=== PATIENT | female | born 1960 | race Caucasian/White ===

== ENCOUNTER → 2019-02-05 | Outpatient (CLI) | payer BC ==
--- NOTE | 2019-02-05 12:30 | US ---
EXAMINATION TYPE: US pelvic complete DATE OF EXAM: 02/05/2019 COMPARISON: NONE CLINICAL HISTORY: R10.2 Pelvic and perineal pain. pelvic pain x 4 months, partial hysterectomy 2002, TECHNIQUE: TA. Transabdominal sonographic images of the pelvis were acquired. Date of LMP: 2002 EXAM MEASUREMENTS: Uterus: surgically absent Endometrial Stripe: Surgically absent Right Ovary: 1.7 x 1.6 x 1.7 cm Left Ovary: 1.4 x 1.1 x 1.2 cm 1. Uterus: Surgically absent 2. Endometrium: Surgically absent 3. Right Ovary: wnl 4. Left Ovary: wnl 5. Bilateral Adnexa: wnl 6. Posterior cul-de-sac: wnl IMPRESSION: 1. Normal pelvic ultrasound
== END | disposition home or self-care (01) ==
LOC: RADUSWWP 11:33
PROVIDERS: ATTEND Family Medicine
DX: R10.2 Pelvic and perineal pain (principal); Z88.6 Allergy status to analgesic agent
CPT/HCPCS: 76856

== ENCOUNTER → 2019-02-26 | Outpatient (CLI) | payer BC ==
--- NOTE | 2019-02-26 09:45 | XR ---
EXAMINATION TYPE: XR pelvis AP view DATE OF EXAM: 02/26/2019 COMPARISON: NONE HISTORY: Pain The osseous structures are intact and the joint spaces are preserved. No acute fracture is seen. Vi sualized bowel gas pattern is nonspecific. Arthropathy of the hips. Calcification pelvis likely vasc ular. Sclerotic density overlying the left femoral neck likely related to bone island. IMPRESSION: 1. No acute fracture.
== END ==
LOC: RADXRMAIN 09:05
PROVIDERS: ATTEND Physical Medicine & Rehabilitation
DX: M48.062 Spinal stenosis, lumbar region with neurogenic claudication (principal); M47.26 Other spondylosis with radiculopathy, lumbar region; M41.26 Other idiopathic scoliosis, lumbar region; M43.16 Spondylolisthesis, lumbar region; R20.2 Paresthesia of skin
CPT/HCPCS: 72170

== ENCOUNTER 2019-07-31 15:08 | Inpatient (IN) | payer BC ==
[2019-07-31] MEDS ORDERED: methylPREDNISolone SOD SUCCI 125 MG/2 ML VIAL IV STA (16:06)
[2019-07-31] MEDS ORDERED: IPRATROPIUM-ALBUTEROL 3 ML NEB INHALATION STA (16:06)
[2019-07-31 16:30] LABS: Basophils # (A) 0.1 k/uL (0-0.2); Basophils % (A) 2 %; Eosinophils # (A) 0.1 k/uL (0-0.7); Eosinophils % (A) 2 %; HCT 42.5 % (34.0-46.0); HGB 13.8 gm/dL (11.4-16.0); Lymphocytes # (A) 1.2 k/uL (1.0-4.8); Lymphocytes % (A) 17 %; MCH 29.9 pg (25.0-35.0); MCHC 32.4 g/dL (31.0-37.0); MCV 92.3 fL (80.0-100.0); Mean Platelet Volume 7.3; Monocytes # (A) 0.7 k/uL (0-1.0); Monocytes % (A) 10 %; Neutrophils % (A) 68 %; Platelet Count 211 k/uL (150-450); RDW 12.9 % (11.5-15.5); WBC 7.3 k/uL (3.8-10.6)
--- NOTE | 2019-07-31 16:31 | ED ---
SOB HPI - General Chief Complaint: Shortness of Breath Stated Complaint: COPD Time Seen by Provider: 07/31/19 15:48 Source: patient, RN notes reviewed Mode of arrival: ambulatory Limitations: no limitations - History of Present Illness Initial Comments: This a 59-year-old female presents emergency Department from Dr. Hannah's office chief complaints of dyspnea. Patient states that she states that she has no official diagnosis of underlying lung she's though she has chronic issues. Patient states that she was exposed to help. When she was younger. She has a chronic bronchospasm, wheezing. Patient uses an inhaler. She's had no relief. She does admit that she's had progressively worsening dyspnea over the last 3-4 weeks. Patient states that she presented to her PCPs office today and found to be in mild respiratory distress. Patient was given breathing treatment, steroids, antibiotics at that time. Patient PCP states that she was retracting. 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 - Related Data Home Medications Medication Instructions Recorded Confirmed ALPRAZolam [Xanax] 0.5 mg PO DAILY 07/31/19 07/31/19 Albuterol Inhaler [Ventolin Hfa 2 puff INHALATION RT-Q6H PRN 07/31/19 07/31/19 Inhaler] Cyanocobalamin [Vitamin B-12] 500 mcg PO DAILY 07/31/19 07/31/19 Esomeprazole Magnesium [NexIUM] 40 mg PO DAILY 07/31/19 07/31/19 Hydrocodone/Acetaminophen [[place] 1 tab PO BID PRN 07/31/19 07/31/19 10-325] Lisinopril [Zestril] 20 mg PO DAILY 07/31/19 07/31/19 Meloxicam [Mobic] 15 mg PO DAILY 07/31/19 07/31/19 RX: Vitamin E 100 unit PO DAILY 07/31/19 07/31/19 Allergies Allergy/AdvReac Type Severity Reaction Status Date / Time latex Allergy Rash/Hives Verified 07/31/19 16:10 Review of Systems ROS Statement: Those systems with pertinent positive or pertinent negative responses have been documented in the HPI. ROS Other: All systems not noted in ROS Statement are negative. Past Medical History Past Medical History: COPD, Osteoarthritis (OA) Additional Past Medical History / Comment(s): Back Pain History of Any Multi-Drug Resistant Organisms: None Reported Past Surgical History: Hysterectomy Past Psychological History: Anxiety Smoking Status: Never smoker Past Alcohol Use History: None Reported Past Drug Use History: None Reported General Exam Limitations: no limitations General appearance: alert, in no apparent distress Head exam: Present: atraumatic, normocephalic, normal inspection Eye exam: Present: normal appearance, PERRL, EOMI. Absent: scleral icterus, conjunctival injection, periorbital swelling ENT exam: Present: normal oropharynx, mucous membranes moist, TM's normal bilaterally, normal external ear exam Neck exam: Present: normal inspection, full ROM. Absent: tenderness, meningismus, lymphadenopathy Respiratory exam: Present: respiratory distress (Mild), wheezes, accessory muscle use, other (Hypoxic 94). Absent: normal lung sounds bilaterally, rales, rhonchi, stridor Cardiovascular Exam: Present: regular rate, normal rhythm, normal heart sounds. Absent: systolic murmur, diastolic murmur, rubs, gallop, clicks GI/Abdominal exam: Present: soft, normal bowel sounds. Absent: distended, tenderness, guarding, rebound, rigid Course Vital Signs 07/31/19 07/31/19 07/31/19 15:13 16:10 16:21 Temperature 98.1 F Pulse Rate 91 79 80 Respiratory 16 Rate Blood Pressure 142/87 O2 Sat by Pulse 94 L Oximetry 07/31/19 16:44 Temperature Pulse Rate 89 Respiratory 20 Rate Blood Pressure 121/60 O2 Sat by Pulse 98 Oximetry Medical Decision Making - Medical Decision Making Labs chest x-ray and EKG were obtained. Chest x-ray shows evidence of diaphragmatic hernia including bowel and stomach within the chest cavity. Patient does have noted dyspnea. Patient will be admitted to Dr. Hannah with consult to cardiothoracic. - Lab Data Result diagrams: 07/31/19 15:55 07/31/19 15:55 Lab Results 07/31/19 07/31/19 07/31/19 Range/Units 15:55 15:55 15:55 WBC 7.3 (3.8-10.6) k/uL RBC 4.60 (3.80-5.40) m/uL Hgb 13.8 (11.4-16.0) gm/dL Hct 42.5 (34.0-46.0) % MCV 92.3 (80.0-100.0) fL MCH 29.9 (25.0-35.0) pg MCHC 32.4 (31.0-37.0) g/dL RDW 12.9 (11.5-15.5) % Plt Count 211 (150-450) k/uL Neutrophils % 68 % Lymphocytes % 17 % Monocytes % 10 % Eosinophils % 2 % Basophils % 2 % Neutrophils # 5.0 (1.3-7.7) k/uL Lymphocytes # 1.2 (1.0-4.8) k/uL Monocytes # 0.7 (0-1.0) k/uL Eosinophils # 0.1 (0-0.7) k/uL Basophils # 0.1 (0-0.2) k/uL PT (9.0-12.0) sec INR (<1.2) APTT (22.0-30.0) sec Sodium 142 (137-145) mmol/L Potassium 3.8 (3.5-5.1) mmol/L Chloride 105 (98-107) mmol/L Carbon Dioxide 30 (22-30) mmol/L Anion Gap 7 mmol/L BUN 14 (7-17) mg/dL Creatinine 0.50 L (0.52-1.04) mg/dL Est GFR (CKD-EPI)AfAm >90 (>60 ml/min/1.73 sqM) Est GFR (CKD-EPI)NonAf >90 (>60 ml/min/1.73 sqM) Glucose 120 H (74-99) mg/dL Plasma Lactic Acid Jayson (0.7-2.0) mmol/L Calcium 9.5 (8.4-10.2) mg/dL Magnesium 2.0 (1.6-2.3) mg/dL Total Bilirubin 0.4 (0.2-1.3) mg/dL AST 18 (14-36) U/L ALT 19 (9-52) U/L Alkaline Phosphatase 83 (38-126) U/L Troponin I (0.000-0.034) ng/mL NT-Pro-B Natriuret Pep 32 pg/mL Total Protein 6.8 (6.3-8.2) g/dL Albumin 4.0 (3.5-5.0) g/dL 07/31/19 07/31/19 07/31/19 Range/Units 15:55 15:55 15:55 WBC (3.8-10.6) k/uL RBC (3.80-5.40) m/uL Hgb (11.4-16.0) gm/dL Hct (34.0-46.0) % MCV (80.0-100.0) fL MCH (25.0-35.0) pg MCHC (31.0-37.0) g/dL RDW (11.5-15.5) % Plt Count (150-450) k/uL Neutrophils % % Lymphocytes % % Monocytes % % Eosinophils % % Basophils % % Neutrophils # (1.3-7.7) k/uL Lymphocytes # (1.0-4.8) k/uL Monocytes # (0-1.0) k/uL Eosinophils # (0-0.7) k/uL Basophils # (0-0.2) k/uL PT 10.0 (9.0-12.0) sec INR 0.9 (<1.2) APTT 22.6 (22.0-30.0) sec Sodium (137-145) mmol/L Potassium (3.5-5.1) mmol/L Chloride (98-107) mmol/L Carbon Dioxide (22-30) mmol/L Anion Gap mmol/L BUN (7-17) mg/dL Creatinine (0.52-1.04) mg/dL Est GFR (CKD-EPI)AfAm (>60 ml/min/1.73 sqM) Est GFR (CKD-EPI)NonAf (>60 ml/min/1.73 sqM) Glucose (74-99) mg/dL Plasma Lactic Acid Jayson 0.8 (0.7-2.0) mmol/L Calcium (8.4-10.2) mg/dL Magnesium (1.6-2.3) mg/dL Total Bilirubin (0.2-1.3) mg/dL AST (14-36) U/L ALT (9-52) U/L Alkaline Phosphatase (38-126) U/L Troponin I <0.012 (0.000-0.034) ng/mL NT-Pro-B Natriuret Pep pg/mL Total Protein (6.3-8.2) g/dL Albumin (3.5-5.0) g/dL Disposition Clinical Impression: Dyspnea, Large hiatal hernia Disposition: ADMITTED IP TO THIS HOSP Condition: Fair Referrals: Rober Hannah MD [Primary Care Provider] - 1-2 days
[2019-07-31 16:44] LABS: ALT 19 U/L (9-52); AST 18 U/L (14-36); African American GFR (CKD) >90 (>60 ml/min/1.73 sqM); Alkaline Phosphatase 83 U/L (38-126); Anion Gap 7 mmol/L; Blood Urea Nitrogen 14 mg/dL (7-17); Calcium 9.5 mg/dL (8.4-10.2); Carbon Dioxide 30 mmol/L (22-30); Chloride 105 mmol/L (98-107); Glucose 120 mg/dL (74-99); Potassium 3.8 mmol/L (3.5-5.1); Sodium 142 mmol/L (137-145); Total Bilirubin 0.4 mg/dL (0.2-1.3); Total Protein 6.8 g/dL (6.3-8.2)
[2019-07-31 16:51] LABS: INR 0.9 (<1.2); Partial Thromboplastin Time 22.6 sec (22.0-30.0)
--- NOTE | 2019-07-31 17:12 | XR ---
EXAMINATION: XR chest 2V DATE AND TIME: 07/31/2019 4:39 PM CLINICAL INDICATION: PHH; difficulty breathing TECHNIQUE: Departmental protocol COMPARISON: No comparison available. FINDINGS: There are marked architectural distortion changes throughout the mid and lower lung zones a nd over the mediastinum. The appearance suggest intrathoracic stomach and intrathoracic bowel. These findings can be further specified if prior comparison imaging studies become available, or if CT imag ing is obtained. The upper and visualized mid lung parenchyma is clear bilaterally. There is no pneumothorax. Is evidence suggesting small pleural effusions. The cardiac silhouette appears mildly enlarged. The skeletal structures and visualized soft tissues are negative for acute findings. IMPRESSION: Prominent architectural distortion changes limit accuracy of this chest radiographic exam ination. Geographic findings as above.
[2019-07-31] MEDS ORDERED: HYDROmorphone 0.5 MG/0.5 ML SYRINGE IVP PRN (17:30)
[2019-07-31] MEDS ORDERED: NALOXONE 0.4 MG/ML 1 ML VIAL IV PRN (17:30)
[2019-07-31] MEDS ORDERED: ONDANSETRON 4 MG/2 ML VIAL IVP PRN (17:30)
[2019-07-31] MEDS ORDERED: HYDROmorphone 1 MG/ML 1 ML SYRINGE IVP PRN (17:30)
[2019-07-31] MEDS ORDERED: HYDROcodone/APAP 10-325MG 1 EACH TAB PO PRN (20:33)
[2019-07-31] MEDS: ALPRAZolam 0.5 MG TAB PO SCH (21:16)
[2019-08-01] MEDS: ALBUTEROL NEBULIZED 2.5 MG/3 ML INHALATION PRN ×2 (07:22→20:11)
[2019-08-01] MEDS: PANTOPRAZOLE 40 MG/10 ML VIAL IV SCH (08:14)
[2019-08-01] MEDS: CYANOCOBALAMIN 500 MCG TAB PO SCH (08:14)
--- NOTE | 2019-08-01 08:14 | P.HPIM ---
History of Present Illness H&P Date: 08/01/19 Chief Complaint: CAMPOS for several days. 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 She states she had to miss work this past weekend because she could not perform her housekeeping duties properly. Evaluation in my office did show possible lump element of emphysema. She had PFT which did show poor FEV1 at about 30% predicted. Due to this finding on x-ray, she is now been admitted for possible repair of a diaphragmatic hernia do to causing significant dyspnea. Otherwise, she has an element of hypertension and chronic pain related to DJD of the spine and knees bilaterally. Review of Systems Constitutional: Denies chills, Denies fever Eyes: denies blurred vision, denies pain Ears, nose, mouth and throat: Denies headache, Denies sore throat Cardiovascular: Reports orthopnea Respiratory: Reports dyspnea Gastrointestinal: Denies abdominal pain, Denies diarrhea, Denies nausea, Denies vomiting Genitourinary: Denies dysuria, Denies hematuria Musculoskeletal: Denies myalgias Past Medical History Past Medical History: COPD, Osteoarthritis (OA) Additional Past Medical History / Comment(s): Back Pain History of Any Multi-Drug Resistant Organisms: None Reported Past Surgical History: Hysterectomy Past Anesthesia/Blood Transfusion Reactions: No Reported Reaction Past Psychological History: Anxiety Smoking Status: Never smoker Past Alcohol Use History: None Reported Past Drug Use History: None Reported Medications and Allergies Home Medications Medication Instructions Recorded Confirmed Type ALPRAZolam [Xanax] 0.5 mg PO DAILY 07/31/19 07/31/19 History Albuterol Inhaler [Ventolin Hfa 2 puff INHALATION RT-Q6H PRN 07/31/19 07/31/19 History Inhaler] Cyanocobalamin [Vitamin B-12] 500 mcg PO DAILY 07/31/19 07/31/19 History Esomeprazole Magnesium [NexIUM] 40 mg PO DAILY 07/31/19 07/31/19 History Hydrocodone/Acetaminophen [[place] 1 tab PO BID PRN 07/31/19 07/31/19 History 10-325] Lisinopril [Zestril] 20 mg PO DAILY 07/31/19 07/31/19 History Meloxicam [Mobic] 15 mg PO DAILY 07/31/19 07/31/19 History Vitamin E 100 unit PO DAILY 07/31/19 07/31/19 History Allergies Allergy/AdvReac Type Severity Reaction Status Date / Time latex Allergy Rash/Hives Verified 07/31/19 16:10 Physical Exam Vitals: Vital Signs Temp Pulse Pulse Resp BP BP Pulse Ox 08/01/19 07:52 64 08/01/19 07:22 60 07/31/19 19:52 98.1 F 76 20 124/82 07/31/19 18:54 97.8 F 87 18 125/74 96 07/31/19 16:44 89 20 121/60 98 07/31/19 16:21 80 07/31/19 16:10 79 07/31/19 15:13 98.1 F 91 16 142/87 94 L Intake and Output 07/31/19 08/01/19 08/01/19 22:59 06:59 14:59 Intake Total 200 Balance 200 Intake: Oral 200 Other: Voiding Method Toilet # Voids 0 Weight 74.389 kg - Constitutional General appearance: no acute distress - EENT Eyes: EOMI - Neck Neck: no lymphadenopathy - Respiratory Respiratory: bilateral: diminished - Cardiovascular Rhythm: regular Heart sounds: normal: S1, S2 Abnormal Heart Sounds: no S3 Gallop - Gastrointestinal General gastrointestinal: soft, no tenderness - Neurologic Neurologic: CNII-XII intact, focal deficits Results CBC & Chem 7: 07/31/19 15:55 07/31/19 15:55 Labs: Abnormal Lab Results - Last 24 Hours (Table) 07/31/19 Range/Units 15:55 Creatinine 0.50 L (0.52-1.04) mg/dL Glucose 120 H (74-99) mg/dL Thrombosis Risk Factor Assmnt - Choose All That Apply Each Factor Represents 1 point: Age 41-60 years Thrombosis Risk Factor Assessment Total Risk Factor Score: 1 Thrombosis Risk Factor Assessment Level: Low Risk Assessment and Plan (1) Opiate dependence Current Visit: Yes Status: Acute Code(s): F11.20 - OPIOID DEPENDENCE, UNCOM PLICATED SNOMED Code(s): 88965625 (2) Degenerative joint disease (DJD) of lumbar spine Current Visit: Yes Status: Acute Code(s): M47.816 - SPONDYLOSIS W/O MYELOPATHY OR RADICULOPATHY, LUMBAR REGION SNOMED Code(s): 669532842 (3) Dyspnea Current Visit: Yes Status: Acute Code(s): R06.00 - DYSPNEA, UNSPECIFIED SNOMED Code(s): 968442437 (4) Large hiatal hernia Current Visit: Yes Status: Acute Code(s): K44.9 - DIAPHRAGMATIC HERNIA WITHOUT OBSTRUCTION OR GANGRENE SNOMED Code(s): 31136700 Plan: Continue breathing treatments for now. Otherwise, await consultation for possible repair of the head hernia. Check CBC and CMP in a.m. Reconcile medications. She is a full code after discussion. See orders otherwise. Time with Patient: Greater than 30
[2019-08-01] MEDS: LISINOPRIL 20 MG TAB PO SCH (08:15)
[2019-08-01] MEDS: VITAMIN E (DL,TOCOPHERYL ACET) 400 UNIT CAP PO SCH (08:15)
[2019-08-01] MEDS: ALPRAZolam 0.5 MG TAB PO SCH (08:15)
[2019-08-01] MEDS: MELOXICAM 7.5 MG TAB PO SCH (08:15)
[2019-08-01 08:17] LABS: Basophils # (A) 0.1 k/uL (0-0.2); Basophils % (A) 2 %; Eosinophils # (A) 0.1 k/uL (0-0.7); Eosinophils % (A) 2 %; HCT 44.3 % (34.0-46.0); HGB 14.5 gm/dL (11.4-16.0); Lymphocytes # (A) 1.1 k/uL (1.0-4.8); Lymphocytes % (A) 17 %; MCHC 32.6 g/dL (31.0-37.0); MCV 94.9 fL (80.0-100.0); Mean Platelet Volume 7.2; Monocytes # (A) 0.5 k/uL (0-1.0); Monocytes % (A) 9 %; Neutrophils % (A) 67 %; Platelet Count 166 k/uL (150-450); RBC 4.67 m/uL (3.80-5.40); RDW 12.9 % (11.5-15.5)
[2019-08-01 08:26] LABS: Prothrombin Time 10.4 sec (9.0-12.0)
[2019-08-01 08:31] LABS: ALT 22 U/L (9-52); AST 18 U/L (14-36); African American GFR (CKD) >90 (>60 ml/min/1.73 sqM); Albumin 3.9 g/dL (3.5-5.0); Alkaline Phosphatase 73 U/L (38-126); Anion Gap 8 mmol/L; Blood Urea Nitrogen 15 mg/dL (7-17); Calcium 9.2 mg/dL (8.4-10.2); Carbon Dioxide 31 mmol/L (22-30); Chloride 104 mmol/L (98-107); Glucose 138 mg/dL (74-99); Potassium 3.8 mmol/L (3.5-5.1); Sodium 143 mmol/L (137-145); Total Bilirubin 0.7 mg/dL (0.2-1.3); Total Protein 6.7 g/dL (6.3-8.2)
[2019-08-01] MEDS ORDERED: NON FORMULARY DRUG (Esomeprazole Magnesium [Nexium] 40 MG) PO SCH (09:00)
--- NOTE | 2019-08-01 11:57 | CT ---
EXAMINATION TYPE: CT chest abdomen w con DATE OF EXAM: 08/01/2019 COMPARISON: Chest x-ray 07/31/2019 HISTORY: Evaluate paraesophageal hernia. Epigastric pain. CT DLP: 845.4 mGycm. Automated Exposure Control for Dose Reduction was Utilized. CONTRAST: CT scan of the thorax, abdomen and pelvis is performed with IV Contrast, patient injected with 100 mL of Isovue M300. FINDINGS: There is a large hiatal hernia. The stomach is present within the right chest crossing midl ine into the left chest. Multiple small bowel loops, portions of the colon present within the chest a s well as the mesentery, pancreas. Portal vein is apparently inverted, probable mixing artifact prese nt of the confluence of the splenic vein and superior mesenteric vein. No evident bowel obstruction. Celiac axis and superior mesenteric artery show branches coursing in a cephalad direction. LUNGS: The lungs are grossly clear, there is no concerning parenchymal mass or nodule identified. T here is no pleural effusion or pneumothorax seen. The tracheobronchial tree is patent. MEDIASTINUM: There are no greater than 1 cm hilar or mediastinal lymph nodes. No pericardial effusi on is seen. There are coronary artery calcifications present. OTHER: No additional significant abnormality is seen. LIVER/GB: There is a sizable calcified gallstone within the gallbladder. Liver shows some mild the pr ominent biliary ducts, there is no evident mass. PANCREAS: As above SPLEEN: No significant abnormality is seen. ADRENALS: Prominent focus of low-attenuation associated with the right adrenal gland may represent an adenoma measuring 2 cm. Left adrenal gland is thought likely to be normal. KIDNEYS: No significant abnormality is seen. BOWEL: As above GENITAL ORGANS: No gross abnormality seen. LYMPH NODES: No greater than 1cm abdominal or pelvic lymph nodes are appreciated. OSSEOUS STRUCTURES: Degenerative disc changes in the visualized spine. Anterolisthesis grade 1 L4-5. OTHER: No significant additional abnormality is seen. IMPRESSION: Large paraesophageal hernia as described. Probable adrenal adenoma. Cholelithiasis.
--- NOTE | 2019-08-01 15:42 | P.GSCN ---
History of Present Illness Consult date: 08/01/19 Reason for Consult: Paraesophogeal hernia Requesting physician: Jamal Heredia History of present illness: The patient is a 59-year-old female who follows with Dr. Hnanah. She has a pmh significant for arthritis, HTN, and GERD. She went to her PCP approximately one week ago with "cold-like" symptoms. She states she had a productive cough with green sputum, diarrhea, and shortness of breath x 1 week. Her dyspnea on exertion has gotten progressively worse over the last several days. Her PCP did a PFT which showed a poor FEV1 at about 30% predicted, and subsequently sent her to the . CXR in demonstrated a large paraesophogeal hernia with the majority of her abdominal contents in her chest. She was admitted for evaluation and treatment. Consultation was placed to Dr. Marcum for surgical recommendations. Review of Systems ROS completed and negative except as noted - Constitutional Constitutional Comment(s): Denies any fever or chills Reports as per HPI, Reports fatigue - EENT EENT Comment(s): Denies any blurred vision or changes in vision. Denies any headache, sore throat, or earaches. Eyes: denies blurred vision - Breasts Breasts Comment(s): deferred - Cardiovascular Cardiovascular Comment(s): Denies any chest pain/pressure, palpitations, or peripheral edema - Respiratory Respiratory Comment(s): Reports sob x 1 week, orthopnea, wheezing, and a productive cough with yellow/green sputum. Denies any hemoptysis. - Gastrointestinal Gastrointestinal Comment(s): She had an upper GI approximately 5 years ago and was told she has a hiatal hernia and has had ongoing epigastric pain since. Reports acid reflux. Denies nausea, vomiting, or constipation. - Genitourinary Genitourinary Comment(s): Denies hematuria., dysuria, or flank pain Menstruation: Reports post hysterectomy - Musculoskeletal Musculoskeleta Comment(s): Denies weakness or myalgias - Integumentary Integumentary Comment(s): Denies any rashes, ulcers, or open wounds. - Neurological Neurologic Comment(s): Denies any dizziness, confusion, weakness, or headaches - Psychiatric Reports anxiety - Endocrine Endocrine Comment(s): denies any recent changes in weight or heat/cold intolerance Past Medical History Past Medical History: COPD, GERD/Reflux, Osteoarthritis (OA) Additional Past Medical History / Comment(s): Back Pain History of Any Multi-Drug Resistant Organisms: None Reported Past Surgical History: Hysterectomy Past Anesthesia/Blood Transfusion Reactions: No Reported Reaction Past Psychological History: Anxiety Smoking Status: Never smoker Past Alcohol Use History: None Reported Past Drug Use History: None Reported - Past Family History Father Additional Family Medical History / Comment(s): Alzheimers Mother Family Medical History: Congestive Heart Failure (CHF) Brother(s) Family Medical History: Cancer Sister(s) Family Medical History: Cancer Medications and Allergies Home Medications Medication Instructions Recorded Confirmed Type ALPRAZolam [Xanax] 0.5 mg PO DAILY 07/31/19 07/31/19 History Albuterol Inhaler [Ventolin Hfa 2 puff INHALATION RT-Q6H PRN 07/31/19 07/31/19 History Inhaler] Cyanocobalamin [Vitamin B-12] 500 mcg PO DAILY 07/31/19 07/31/19 History Esomeprazole Magnesium [NexIUM] 40 mg PO DAILY 07/31/19 07/31/19 History Hydrocodone/Acetaminophen [[place] 1 tab PO BID PRN 07/31/19 07/31/19 History 10-325] Lisinopril [Zestril] 20 mg PO DAILY 07/31/19 07/31/19 History Meloxicam [Mobic] 15 mg PO DAILY 07/31/19 07/31/19 History Vitamin E 100 unit PO DAILY 07/31/19 07/31/19 History Allergies Allergy/AdvReac Type Severity Reaction Status Date / Time latex Allergy Rash/Hives Verified 07/31/19 16:10 Surgical - Exam Vital Signs Temp Pulse Resp BP Pulse Ox 98.1 F 91 16 142/87 94 L 07/31/19 15:13 07/31/19 15:13 07/31/19 15:13 07/31/19 15:13 07/31/19 15:13 - General well developed, well nourished, no distress - Eyes normal ocular movement - ENT no hearing loss - Neck trachea midline, no lymphadectomy - Respiratory Patient lying in bed on 2L NC SPO2 96%. Lungs diminished to bases with mild expiratory wheezes. Mild conversational dyspnea noted. - Cardiovascular Regular rate and rhythm. No S3, murmurs, or friction rub noted. - Abdomen Bowel sounds heard in chest cavity Abdomen: soft, non tender, bowel sounds - Genitourinary deferred - Rectum deferred - Integumentary no rash - Neurologic CNII-XII grossly intact, no focal deficits noted - Psychiatric oriented to time, oriented to person, oriented to place, speech is normal, memory intact Results - Labs 08/01/19 07:50 08/01/19 07:50 Abnormal Lab Results - Last 24 Hours (Table) 07/31/19 08/01/19 Range/Units 15:55 07:50 Carbon Dioxide 31 H (22-30) mmol/L Creatinine 0.50 L (0.52-1.04) mg/dL Glucose 120 H 138 H (74-99) mg/dL Diabetes panel 07/31/19 08/01/19 Range/Units 15:55 07:50 Sodium 142 143 (137-145) mmol/L Potassium 3.8 3.8 (3.5-5.1) mmol/L Chloride 105 104 (98-107) mmol/L Carbon Dioxide 30 31 H (22-30) mmol/L BUN 14 15 (7-17) mg/dL Creatinine 0.50 L 0.55 (0.52-1.04) mg/dL Glucose 120 H 138 H (74-99) mg/dL Calcium 9.5 9.2 (8.4-10.2) mg/dL AST 18 18 (14-36) U/L ALT 19 22 (9-52) U/L Alkaline Phosphatase 83 73 (38-126) U/L Total Protein 6.8 6.7 (6.3-8.2) g/dL Albumin 4.0 3.9 (3.5-5.0) g/dL Calcium panel 07/31/19 08/01/19 Range/Units 15:55 07:50 Calcium 9.5 9.2 (8.4-10.2) mg/dL Albumin 4.0 3.9 (3.5-5.0) g/dL Pituitary panel 07/31/19 08/01/19 Range/Units 15:55 07:50 Sodium 142 143 (137-145) mmol/L Potassium 3.8 3.8 (3.5-5.1) mmol/L Chloride 105 104 (98-107) mmol/L Carbon Dioxide 30 31 H (22-30) mmol/L BUN 14 15 (7-17) mg/dL Creatinine 0.50 L 0.55 (0.52-1.04) mg/dL Glucose 120 H 138 H (74-99) mg/dL Calcium 9.5 9.2 (8.4-10.2) mg/dL Adrenal panel 07/31/19 08/01/19 Range/Units 15:55 07:50 Sodium 142 143 (137-145) mmol/L Potassium 3.8 3.8 (3.5-5.1) mmol/L Chloride 105 104 (98-107) mmol/L Carbon Dioxide 30 31 H (22-30) mmol/L BUN 14 15 (7-17) mg/dL Creatinine 0.50 L 0.55 (0.52-1.04) mg/dL Glucose 120 H 138 H (74-99) mg/dL Calcium 9.5 9.2 (8.4-10.2) mg/dL Total Bilirubin 0.4 0.7 (0.2-1.3) mg/dL AST 18 18 (14-36) U/L ALT 19 22 (9-52) U/L Alkaline Phosphatase 83 73 (38-126) U/L Total Protein 6.8 6.7 (6.3-8.2) g/dL Albumin 4.0 3.9 (3.5-5.0) g/dL - Imaging Chest x-ray: report reviewed, image reviewed CT scan - abdomen: report reviewed, image reviewed EKG: report reviewed, image reviewed Assessment and Plan Assessment: 1. Paraesophogeal hernia 2. CT evidence of gallstone 3. HTN 4. GERD 5. Arthritis 6. Dyspnea Plan: The patient was seen and examined at the bedside. CT of chest was obtained whi ch confirms large paraesophageal hernia with abdominal contents inside the chest and a large gall stone. We discussed surgical repair with the patient and her . All risks and benefits were reviewed and the patient consented to surgery. Our plan is for paraesophogeal hernia repair with laparotomy approach on Tuesday08/04/[address] Keller will simultaneously be performing a cholecystectomy. We will obtain PFT's with a pulmonology consult for evaluation. Incentive spirometry was ordered and should be encouraged. Medical management of other co-morbid conditions per primary care service. More recommendations to follow. Thank you for this consultation. We look forward in working with you and caring for this patient.
[2019-08-01] MEDS: ALPRAZolam 0.5 MG TAB PO PRN (23:10)
[2019-08-02] MEDS: ALBUTEROL NEBULIZED 2.5 MG/3 ML INHALATION PRN ×3 (08:10→15:39)
[2019-08-02] MEDS: LISINOPRIL 20 MG TAB PO SCH (08:16)
[2019-08-02] MEDS: VITAMIN E (DL,TOCOPHERYL ACET) 400 UNIT CAP PO SCH (08:16)
[2019-08-02] MEDS: CYANOCOBALAMIN 500 MCG TAB PO SCH (08:16)
[2019-08-02] MEDS: MELOXICAM 7.5 MG TAB PO SCH (08:16)
[2019-08-02] MEDS: PANTOPRAZOLE 40 MG/10 ML VIAL IV SCH (08:16)
--- NOTE | 2019-08-02 08:30 | P.PN ---
Subjective Progress Note Date: 08/02/19 Principal diagnosis: Hiatal hernia This is a continue progress note on a 59-year-old white female essentially admitted for large diaphragmatic type hernia. Large amounts of intestinal contents and lower abdominal contents are in her chest cavity. I had a long discussion with thoracic surgery yesterday and they will anticipate repair in the next day or 2. No significant fever or chills. Hours has significant dyspnea on exertion. DVT prophylaxis will be instituted given her lack of mobility. Objective - Vital Signs Vital signs: Vital Signs Temp 98.5 F 08/02/19 04:35 Pulse 68 08/02/19 08:23 Resp 16 08/02/19 04:35 BP 133/74 08/02/19 04:35 Pulse Ox 97 08/02/19 04:35 Intake & Output 08/01/19 08/02/19 08/02/19 18:59 06:59 18:59 Intake Total 790 Balance 790 Weight 74.389 kg Intake: Oral 790 Other: Voiding Method Toilet # Voids 4 4 - Constitutional General appearance: Present: average body habitus - EENT Eyes: Absent: abnormal pupil - Respiratory Respiratory: bilateral: CTA - Cardiovascular Rhythm: regular Heart sounds: normal: S1, S2 Abnormal Heart Sounds: Absent: S3 Gallop - Gastrointestinal General gastrointestinal: Present: soft. Absent: tenderness - Psychiatric Psychiatric: Present: A&O x's 3, appropriate affect - Labs CBC & Chem 7: 08/01/19 07:50 08/01/19 07:50 Labs: Abnormal Lab Results - Last 24 Hours (Table) 08/01/19 Range/Units 07:50 Carbon Dioxide 31 H (22-30) mmol/L Glucose 138 H (74-99) mg/dL Microbiology - Last 24 Hours (Table) 07/31/19 15:55 Blood Culture - Preliminary Blood No Growth after 24 hours Assessment and Plan (1) Opiate dependence Current Visit: Yes Status: Acute Code(s): F11.20 - OPIOID DEPENDENCE, UNCOMPLICATED SNOMED Code(s): 48334411 (2) Degenerative joint disease (DJD) of lumbar spine Current Visit: Yes Status: Acute Code(s): M47.816 - SPONDYLOSIS W/O MYELOPATHY OR RADICULOPATHY, LUMBAR REGION SNOMED Code(s): 468129281 (3) Dyspnea Current Visit: Yes Status: Acute Code(s): R06.00 - DYSPNEA, UNSPECIFIED SNOMED Code(s): 609053444 (4) Large hiatal hernia Current Visit: Yes Status: Acute Code(s): K44.9 - DIAPHRAGMATIC HERNIA WITHOUT OBSTRUCTION OR GANGRENE SNOMED Code(s): 50582201 Plan: Continue observation prior to surgical repair. Again, DVT prophylaxis GI prophylaxis as necessary. Appreciate thoracic input.
[2019-08-02] MEDS: HEPARIN SODIUM,PORCINE 5,000 UNIT/ML 1 ML VIAL SQ SCH ×2 (08:57→21:27)
--- NOTE | 2019-08-02 11:40 | P.PN ---
Subjective Progress Note Date: 08/02/19 Principal diagnosis: This is a 59-year-old female patient who is followed by Dr. Hannah on an outpatient basis. She has a past medical history significant for hypertension, arthritis and gastroesophageal reflux disease. She presented to the [facility] emergency department after visiting with her primary care physician for cold-like symptoms with complaints of a productive cough, green colored sputum, diarrhea and shortness of breath for one week period. The patient did have a pulmonary function test completed in Dr. Hannah's office which demonstrated a poor FEV1 with a predicted value of 30%. Due to her above mentioned complaints and her results of her FEV1 she was requested to go to the emergency department here at [facility]. While in the emergency department a chest x-ray was completed which demonstrated her to have a large per esophageal hernia with the majority of her abdominal contents in her chest. For further evaluation and a CT of her chest was completed which confirmed a large paraesophageal hernia with abdominal contents inside the chest and a large gallstone. She was subsequently admitted for further evaluation and treatment recommendations and was also seen by Dr. Josué Marcum from cardiothoracic surgery for evaluation and treatment recommendations. This morning the patient was evaluated at her bedside on the fourth floor medical surgical unit. She is in no acute distress and denies any complaints of pain or shortness of breath while at rest. She is tolerating a clear liquid diet, although reports that even a cup coffee makes her feel like she has eaten 2 full meals. Oxygen saturations are 97% on 2 L nasal cannula and she is achieving 1000 mL on her incentive spirometry. Preoperative teaching reinforced with the patient. Objective - Vital Signs Vital signs: Vital Signs Temp 98.5 F 08/02/19 04:35 Pulse 68 08/02/19 08:23 Resp 16 08/02/19 04:35 BP 133/74 08/02/19 04:35 Pulse Ox 97 08/02/19 04:35 Intake & Output 08/01/19 08/02/19 08/02/19 18:59 06:59 18:59 Intake Total 790 Balance 790 Weight 74.389 kg Intake: Oral 790 Other: Voiding Method Toilet # Voids 4 4 - Labs CBC & Chem 7: 08/01/19 07:50 08/01/19 07:50 Labs: Microbiology - Last 24 Hours (Table) 07/31/19 15:55 Blood Culture - Preliminary Blood No Growth after 24 hours Assessment and Plan Assessment: 1. Paraesophogeal hernia 2. Cholelithiasis 3. Hypertension 4. Gastroesophageal reflux disease 5. Arthritis 6. Dyspnea Plan: 1. Patient is scheduled for a paraesophageal hernia repair with laparotomy approach to be performed by Dr. Josué Marcum on 08/04/2019. Dr. Keller will simultaneously perform a cholecystectomy. 2. Continue GI and DVT prophylaxis. 3. Medical management and other comorbidities per primary care service. 4. Continue to encourage use of her incentive spirometry every hour while awake. 5. Continue preoperative teaching. 6. More recommendations to follow based on patient's clinical course. Time with Patient: Greater than 30
--- NOTE | 2019-08-02 15:00 | P.GSCN ---
History of Present Illness Consult date: 08/02/19 Reason for Consult: gallstone Requesting physician: Denise Simon History of present illness: CHIEF COMPLAINT: Gallstone HISTORY OF PRESENT ILLNESS: 59-year-old female who was admitted to the hospital due to a large paraesophageal hernia with the majority of her abdomen contents in her chest. Patient was also found to have cholelithiasis on computed tomography scan. General surgery was consulted further evaluation. Patient examined at the bedside with Dr. Hickey. Patient currently denies abdominal pain. Denies nausea or vomiting. PAST MEDICAL HISTORY: See list. PAST SURGICAL HISTORY: See list. SOCIAL HISTORY: No illicit drug use. REVIEW OF SYSTEMS: CONSTITUTIONAL: Denies fever or chills. HEENT: Denies blurred vision, vision changes, or eye pain. Denies hemoptysis CARDIOVASCULAR: Denies chest pain or pressure. RESPIRATORY: No shortness of breath. GASTROINTESTINAL: Refer to HPI for pertinent findings HEMATOLOGIC: Denies bleeding disorders. GENITOURINARY: Denies any blood in urine. SKIN: Denies pruitis. Denies rash. PHYSICAL EXAM: VITAL SIGNS: Reviewed. GENERAL: Well-developed in no acute distress. HEENT: No sclera icterus. Extraocular movements grossly intact. Moist buccal mucosa. Head is atraumatic, normocephalic. ABDOMEN: Soft. Nondistended. Nontender. NEUROLOGIC: Alert and oriented. Cranial nerves II through XII grossly intact. LABORATORY DATA: WBC 6.0. Hemoglobin 14.5. Platelet count 166. IMAGING: CT abdomen pelvis: Large hiatal hernia. Stomach is present within the right chest crusting midline into the left chest. Multiple small bowel loops, portions of the colon present within the chest as well as the mesentery, pancreas. There is a sizable calcified gallstone within the gallbladder. ASSESSMENT: 1. Large paraesophageal hernia 2. Cholelithiasis PLAN: Patient is scheduled for repair of esophageal hernia with Dr. Marcum on August 04. Patient will also simultaneously undergo open cholecystectomy on Tuesday with Dr. Keller. Nurse practitioner note has been reviewed by physician. Signing provider agrees with the documented findings, assessment, and plan of care. Past Medical History Past Medical History: COPD, GERD/Reflux, Osteoarthritis (OA) Additional Past Medical History / Comment(s): Back Pain History of Any Multi-Drug Resistant Organisms: None Reported Past Surgical History: Hysterectomy Past Anesthesia/Blood Transfusion Reactions: No Reported Reaction Past Psychological History: Anxiety Smoking Status: Never smoker Past Alcohol Use History: None Reported Past Drug Use History: None Reported - Past Family History Father Additional Family Medical History / Comment(s): Alzheimers Mother Family Medical History: Congestive Heart Failure (CHF) Brother(s) Family Medical History: Cancer Sister(s) Family Medical History: Cancer Medications and Allergies Home Medications Medication Instructions Recorded Confirmed Type ALPRAZolam [Xanax] 0.5 mg PO DAILY 07/31/19 07/31/19 History Albuterol Inhaler [Ventolin Hfa 2 puff INHALATION RT-Q6H PRN 07/31/19 07/31/19 History Inhaler] Cyanocobalamin [Vitamin B-12] 500 mcg PO DAILY 07/31/19 07/31/19 History Esomeprazole Magnesium [NexIUM] 40 mg PO DAILY 07/31/19 07/31/19 History Hydrocodone/Acetaminophen [[place] 1 tab PO BID PRN 07/31/19 07/31/19 History 10-325] Lisinopril [Zestril] 20 mg PO DAILY 07/31/19 07/31/19 History Meloxicam [Mobic] 15 mg PO DAILY 07/31/19 07/31/19 History Vitamin E 100 unit PO DAILY 07/31/19 07/31/19 History Allergies Allergy/AdvReac Type Severity Reaction Status Date / Time latex Allergy Rash/Hives Verified 07/31/19 16:10 Surgical - Exam Vital Signs Temp Pulse Resp BP Pulse Ox 98.1 F 91 16 142/87 94 L 07/31/19 15:13 07/31/19 15:13 07/31/19 15:13 07/31/19 15:13 07/31/19 15:13 Results - Labs 08/01/19 07:50 08/01/19 07:50 Microbiology - Last 24 Hours (Table) 07/31/19 15:55 Blood Culture - Preliminary Blood No Growth after 24 hours
--- NOTE | 2019-08-02 15:35 | P.CNPUL ---
History of Present Illness Consult date: 08/02/19 Requesting physician: Josué Marcum Reason for consult: dyspnea Chief complaint: Shortness of breath, large paraesophageal hernia, need pulmonary clearance History of present illness: This is a 59-year-old white female patient of Dr. Hannah who presented to her PCPs office for evaluation of cold-like symptoms, and increasing exertional dyspnea over a period of last several days. Patient is a nonsmoker, and she does not have any chronic lung disease, apparently a outpatient PFT and her PCPs office showed an FEV1 of about 31% of predicted, and patient was sent in to the emergency department for evaluation, chest x-ray in emergency department demonstrated a large Dobbs esophageal hernia with intrathoracic stomach and intrathoracic bowel, causing compression of the lungs. CT of the chest, and abdomen with contrast was obtained showing a large hiatal hernia, and the stomach and multiple small bowel loops and portions of the colon were present within the chest as well as the mesentery in the pancreas. There was no evidence of bowel obstruction, the lungs were grossly clear, without any concerning parenchymal mass or nodule. No greater than 1 cm hilar mediastinal lymph node. No cardial effusion, no pleural effusion or pneumothorax. There was a sizable calcified gallstone within the gallbladder, and this was a porcelain gallbladder. Patient was referred to cardiothoracic surgery for surgical repair, and patient is scheduled to undergo paraesophageal hernia repair with laparotomy on 08/04/[address] Marcum. Patient will simultaneously performed a cholecystectomy. We are consulted for pulmonary clearance as well as pulmonary and critical care monitoring in the preop and postoperative period Review of Systems All systems: negative Constitutional: Denies chills, Denies fever Eyes: denies blurred vision, denies pain Ears, nose, mouth and throat: Denies headache, Denies sore throat Cardiovascular: Denies chest pain, Denies shortness of breath Respiratory: Reports dyspnea, Denies cough Gastrointestinal: Reports early satiety, Denies abdominal pain, Denies diarrhea, Denies nausea, Denies vomiting Genitourinary: Denies dysuria, Denies hematuria Musculoskeletal: Denies myalgias Integumentary: Denies pruritus, Denies rash Neurological: Denies numbness, Denies weakness Psychiatric: Denies anxiety, Denies depression Endocrine: Denies fatigue, Denies weight change Past Medical History Past Medical History: COPD, GERD/Reflux, Osteoarthritis (OA) Additional Past Medical History / Comment(s): Back Pain History of Any Multi-Drug Resistant Organisms: None Reported Past Surgical History: Hysterectomy Past Anesthesia/Blood Transfusion Reactions: No Reported Reaction Past Psychological History: Anxiety Smoking Status: Never smoker Past Alcohol Use History: None Reported Past Drug Use History: None Reported - Past Family History Father Additional Family Medical History / Comment(s): Alzheimers Mother Family Medical History: Congestive Heart Failure (CHF) Brother(s) Family Medical History: Cancer Sister(s) Family Medical History: Cancer Medications and Allergies Home Medications Medication Instructions Recorded Confirmed Type ALPRAZolam [Xanax] 0.5 mg PO DAILY 07/31/19 07/31/19 History Albuterol Inhaler [Ventolin Hfa 2 puff INHALATION RT-Q6H PRN 07/31/19 07/31/19 History Inhaler] Cyanocobalamin [Vitamin B-12] 500 mcg PO DAILY 07/31/19 07/31/19 History Esomeprazole Magnesium [NexIUM] 40 mg PO DAILY 07/31/19 07/31/19 History Hydrocodone/Acetaminophen [[place] 1 tab PO BID PRN 07/31/19 07/31/19 History 10-325] Lisinopril [Zestril] 20 mg PO DAILY 07/31/19 07/31/19 History Meloxicam [Mobic] 15 mg PO DAILY 07/31/19 07/31/19 History Vitamin E 100 unit PO DAILY 07/31/19 07/31/19 History Allergies Allergy/AdvReac Type Severity Reaction Status Date / Time latex Allergy Rash/Hives Verified 07/31/19 16:10 Physical Exam Vitals: Vital Signs Temp Pulse Pulse Resp BP Pulse Ox 08/02/19 15:00 98.3 F 80 16 150/68 94 L 08/02/19 11:49 72 08/02/19 11:39 69 08/02/19 08:23 68 08/02/19 08:11 66 08/02/19 04:35 98.5 F 71 16 133/74 97 08/01/19 20:25 77 08/01/19 20:13 75 96 08/01/19 19:20 20 08/01/19 19:12 97.1 F L 73 20 137/72 94 L Intake and Output 08/02/19 08/02/19 08/02/19 06:59 14:59 22:59 Intake Total 720 Balance 720 Intake: Oral 720 Other: Voiding Method Toilet # Voids 4 2 GENERAL EXAM: Alert, very pleasant, 59-year-old white female, comfortable in no apparent distress. HEAD: Normocephalic/atraumatic. EYES: Normal reaction of pupils, equal size. Conjunctiva pink, sclera white. NOSE: Clear with pink turbinates. THROAT: No erythema or exudates. NECK: No masses, no JVD, no thyroid enlargement, no adenopathy. CHEST: No chest wall deformity. Symmetrical expansion. LUNGS: Diminished air entry with no crackles, wheeze, rhonchi or dullness. Patient has a mild conversational dyspnea CVS: Regular rate and rhythm, normal S1 and S2, no gallops, no murmurs, no rubs ABDOMEN: Soft, nontender. No hepatosplenomegaly, normal bowel sounds, no guarding or rigidity. EXTREMITIES: No clubbing, no edema, no cyanosis, 2+ pulses and upper and lower extremities. MUSCULOSKELETAL: Muscle strength and tone normal. SPINE: No scoliosis or deformity SKIN: No rashes CENTRAL NERVOUS SYSTEM: Alert and oriented -3. No focal deficits, tone is normal in all 4 extremities. PSYCHIATRIC: Alert and oriented -3. Appropriate affect. Intact judgment and insight. Results - Laboratory Findings CBC and BMP: 08/01/19 07:50 08/01/19 07:50 PT/INR, D-dimer PT 10.4 sec (9.0-12.0) 08/01/19 07:50 INR 1.0 (<1.2) 08/01/19 07:50 Abnormal lab findings: Abnormal Labs 07/31/19 08/01/19 15:55 07:50 Carbon Dioxide 31 H Creatinine 0.50 L Glucose 120 H 138 H - Diagnostic Findings Chest x-ray: report reviewed, image reviewed CT scan - chest: report reviewed, image reviewed Assessment and Plan Plan: Assessment: #1. Shortness of breath related to evidence of a large paraesophageal hernia with intrathoracic stomach, small bowel, and portion of the colon #2. 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 No history of chronic lung disease #4. Lifetime nonsmoker #5. Anxiety #6. Osteoarthritis #7. GERD/reflux #8. Chronic back pain Plan: Patient has mild conversational dyspnea, but in no acute distress, she is on 2 L of oxygen with a pulse ox of 94%. She is scheduled for paraesophageal hernia repair with laparotomy and simultaneous cholecystectomy for 08/04/2019, and she is cleared for surgery from pulmonary perspective. No evidence of bowel obstruction, vital signs are stable, patient will likely acquire intensive care admission after her surgery in the recovery period, labs, CT chest and chest x-ray have been reviewed. We will continue to follow I performed a history & physical examination of the patient and discussed their management with my nurse practitioner, Yulissa Murdock. I reviewed the nurse practitioner's note and agree with the documented findings and plan of care. Lung sounds are positive for diminished breath sounds. The findings and the impression was discussed with the patient. I attest to the documentation by the nurse practitioner. Time with Patient: Greater than 30
[2019-08-03] MEDS: ALBUTEROL NEBULIZED 2.5 MG/3 ML INHALATION PRN ×2 (08:03→11:01)
--- NOTE | 2019-08-03 08:09 | P.PN ---
Subjective Principal diagnosis: Hiatal hernia This is a continue progress note on a 59-year-old white female essentially admitted for large diaphragmatic type hernia. Large amounts of intestinal contents and lower abdominal contents are in her chest cavity. I had a long discussion with thoracic surgery yesterday and they will anticipate repair in the next day or 2. No significant fever or chills. Hours has significant dyspnea on exertion. DVT prophylaxis will be instituted given her lack of mobility. I do appreciate multiple consultants input Objective - Vital Signs Vital signs: Vital Signs Temp 97.8 F 08/03/19 05:30 Pulse 65 08/03/19 05:30 Resp 16 08/03/19 05:30 BP 134/66 08/03/19 05:30 Pulse Ox 99 08/03/19 05:30 Intake & Output 08/02/19 08/03/19 08/03/19 18:59 06:59 18:59 Intake Total 720 Balance 720 Intake: Oral 720 Other: # Voids 2 2 # Bowel Movements 1 - Constitutional General appearance: Present: average body habitus - EENT Eyes: Absent: abnormal pupil - Neck Neck: Absent: lymphadenopathy - Respiratory Respiratory: bilateral: CTA - Cardiovascular Rhythm: regular Heart sounds: normal: S1, S2 Abnormal Heart Sounds: Absent: S3 Gallop - Gastrointestinal General gastrointestinal: Present: soft. Absent: tenderness - Psychiatric Psychiatric: Present: A&O x's 3, appropriate affect, intact judgment & insight - Labs CBC & Chem 7: 08/01/19 07:50 08/01/19 07:50 Labs: Microbiology - Last 24 Hours (Table) 07/31/19 15:55 Blood Culture - Preliminary Blood No Growth after 48 hours Assessment and Plan (1) Opiate dependence Current Visit: Yes Status: Acute Code(s): F11.20 - OPIOID DEPENDENCE, UNCOMPLICATED SNOMED Code(s): 96222748 (2) Degenerative joint disease (DJD) of lumbar spine Current Visit: Yes Status: Acute Code(s): M47.816 - SPONDYLOSIS W/O MYELOPATHY OR RADICULOPATHY, LUMBAR REGION SNOMED Code(s): 836865005 (3) Dyspnea Current Visit: Yes Status: Acute Code(s): R06.00 - DYSPNEA, UNSPECIFIED S NOMED Code(s): 402159958 (4) Large hiatal hernia Current Visit: Yes Status: Acute Code(s): K44.9 - DIAPHRAGMATIC HERNIA WITHOUT OBSTRUCTION OR GANGRENE SNOMED Code(s): 11146368 Plan: Await laparotomy for large paraesophageal hernia. The patient is hemodynamically stable. Continue appropriate stress type prophylaxis. Dr. Miranda's group will be covering for the weekend. Anticipate transfer to the ICU postop.
[2019-08-03] MEDS: PANTOPRAZOLE 40 MG/10 ML VIAL IV SCH (09:43)
[2019-08-03] MEDS: VITAMIN E (DL,TOCOPHERYL ACET) 400 UNIT CAP PO SCH (09:43)
[2019-08-03] MEDS: MELOXICAM 7.5 MG TAB PO SCH (09:43)
[2019-08-03] MEDS: HEPARIN SODIUM,PORCINE 5,000 UNIT/ML 1 ML VIAL SQ SCH ×2 (09:43→16:33)
[2019-08-03] MEDS: LISINOPRIL 20 MG TAB PO SCH (09:43)
[2019-08-03] MEDS: CYANOCOBALAMIN 500 MCG TAB PO SCH (09:43)
[2019-08-03 11:46] LABS: ALT 38 U/L (9-52); AST 38 U/L (14-36); African American GFR (CKD) >90 (>60 ml/min/1.73 sqM); Albumin 3.8 g/dL (3.5-5.0); Alkaline Phosphatase 77 U/L (38-126); Anion Gap 7 mmol/L; Blood Urea Nitrogen 7 mg/dL (7-17); Calcium 9.1 mg/dL (8.4-10.2); Carbon Dioxide 29 mmol/L (22-30); Chloride 107 mmol/L (98-107); Glucose 123 mg/dL (74-99); Potassium 3.6 mmol/L (3.5-5.1); Sodium 143 mmol/L (137-145); Total Bilirubin 0.4 mg/dL (0.2-1.3); Total Protein 6.5 g/dL (6.3-8.2)
[2019-08-03 11:49] LABS: HCT 41.2 % (34.0-46.0); MCH 30.4 pg (25.0-35.0); MCHC 31.5 g/dL (31.0-37.0); MCV 96.5 fL (80.0-100.0); Mean Platelet Volume 7.4; Platelet Count 157 k/uL (150-450); RBC 4.27 m/uL (3.80-5.40); RDW 12.9 % (11.5-15.5); WBC 5.1 k/uL (3.8-10.6)
--- NOTE | 2019-08-03 12:02 | P.PN ---
Progress Note - Text Progress Note Date: 08/03/19 The patient is resting comfortably in her bed. She is scheduled for open repair of the paraesophageal hernia tomorrow. We will plan on performing open cholecystectomy at the time of her surgery.
--- NOTE | 2019-08-03 13:38 | P.PN ---
Subjective Progress Note Date: 08/03/19 Principal diagnosis: Shortness of breath, large paraesophageal hernia This is a 59-year-old white female patient of Dr. Hannah who presented to her PCPs office for evaluation of cold-like symptoms, and increasing exertional dyspnea over a period of last several days. Patient is a nonsmoker, and she does not have any chronic lung disease, apparently a outpatient PFT and her PCPs office showed an FEV1 of about 31% of predicted, and patient was sent in to the emergency department for evaluation, chest x-ray in emergency department demonstrated a large Dobbs esophageal hernia with intrathoracic stomach and intrathoracic bowel, causing compression of the lungs. CT of the chest, and abdomen with contrast was obtained showing a large hiatal hernia, and the stomach and multiple small bowel loops and portions of the colon were present within the chest as well as the mesentery in the pancreas. There was no evidence of bowel obstruction, the lungs were grossly clear, without any concerning parenchymal mass or nodule. No greater than 1 cm hilar mediastinal lymph node. No cardial effusion, no pleural effusion or pneumothorax. There was a sizable calcified gallstone within the gallbladder, and this was a porcelain gallbladder. Patient was referred to cardiothoracic surgery for surgical repair, and patient is scheduled to undergo paraesophageal hernia repair with laparotomy on 08/04/[address] Marcum. Patient will simultaneously performed a cholecystectomy. We are consulted for pulmonary clearance as well as pulmonary and critical care monitoring in the preop and postoperative period On 08/03/2019 patient seen in follow-up on medical surgical floor. No acute complaints, she denies worsening shortness of breath, her eye a separate is anyw here from 500-1000 mL, lung sounds are clear, diminished at the bases, patient is on clear liquid diet, tolerating it well, no nausea or vomiting. No complaints of chest pain, occasional cough with production of clear phlegm. Vital signs are stable, no acute events overnight, patient is awaiting surgery tomorrow, would repair the [place] of esophageal hernia and simultaneous laparoscopic cholecystectomy Objective - Vital Signs Vital signs: Vital Signs Temp 97.8 F 08/03/19 12:48 Pulse 82 08/03/19 12:48 Resp 18 08/03/19 12:48 BP 154/74 08/03/19 12:48 Pulse Ox 94 L 08/03/19 12:48 Intake & Output 08/02/19 08/03/19 08/03/19 18:59 06:59 18:59 Intake Total 720 350 Balance 720 350 Weight 74.389 kg Intake: Oral 720 350 Other: Voiding Method Toilet # Voids 2 2 # Bowel Movements 1 - Exam GENERAL EXAM: Alert, very pleasant, 59-year-old white female, comfortable in no apparent distress. HEAD: Normocephalic/atraumatic. EYES: Normal reaction of pupils, equal size. Conjunctiva pink, sclera white. NOSE: Clear with pink turbinates. THROAT: No erythema or exudates. NECK: No masses, no JVD, no thyroid enlargement, no adenopathy. CHEST: No chest wall deformity. Symmetrical expansion. LUNGS: Diminished air entry with no crackles, wheeze, rhonchi or dullness. Patient has a mild conversational dyspnea CVS: Regular rate and rhythm, normal S1 and S2, no gallops, no murmurs, no rubs ABDOMEN: Soft, nontender. No hepatosplenomegaly, normal bowel sounds, no guarding or rigidity. EXTREMITIES: No clubbing, no edema, no cyanosis, 2+ pulses and upper and lower extremities. MUSCULOSKELETAL: Muscle strength and tone normal. SPINE: No scoliosis or deformity SKIN: No rashes CENTRAL NERVOUS SYSTEM: Alert and oriented -3. No focal deficits, tone is normal in all 4 extremities. PSYCHIATRIC: Alert and oriented -3. Appropriate affect. Intact judgment and insight. - Labs CBC & Chem 7: 08/03/19 09:55 08/03/19 09:55 Labs: Abnormal Lab Results - Last 24 Hours (Table) 08/03/19 Range/Units 09:55 Creatinine 0.44 L (0.52-1.04) mg/dL Glucose 123 H (74-99) mg/dL AST 38 H (14-36) U/L Microbiology - Last 24 Hours (Table) 07/31/19 15:55 Blood Culture - Preliminary Blood No Growth after 48 hours Assessment and Plan Plan: Assessment: #1. Shortness of breath related to evidence of a large paraesophageal hernia with intrathoracic stomach, small bowel, and portion of the colon #2. 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 No history of chronic lung disease #4. Lifetime nonsmoker #5. Anxiety #6. Osteoarthritis #7. GERD/reflux #8. Chronic back pain Plan: Patient is doing well, no complaints of dyspnea, continue nebulized bronchodilators, she is no acute distress, she is working on her incentive spirometer, achieving up to thousand mL on it today, remains on room air, she denies any distress, no fever or chills, she is awaiting surgery tomorrow for repair of periesophageal hernia and liters, cholecystectomy. Will follow I performed a history & physical examination of the patient and discussed their management with my nurse practitioner, Yulissa Murdock. I reviewed the nurse practitioner's note and agree with the documented findings and plan of care. Lung sounds are positive for diminished breath sounds. The findings and the impression was discussed with the patient. I attest to the documentation by the nurse practitioner. Time with Patient: Less than 30
--- NOTE | 2019-08-03 15:22 | P.PN ---
Subjective Progress Note Date: 08/03/19 Principal diagnosis: This is a 59-year-old female patient who is followed by Dr. Hannah on an outpatient basis. She has a past medical history significant for hypertension, arthritis and gastroesophageal reflux disease. She presented to the [facility] emergency department after visiting with her primary care physician for cold-like symptoms with complaints of a productive cough, green colored sputum, diarrhea and shortness of breath for one week period. The patient did have a pulmonary function test completed in Dr. Hannah's office which demonstrated a poor FEV1 with a predicted value of 30%. Due to her above mentioned complaints and her results of her FEV1 she was requested to go to the emergency department here at [facility]. While in the emergency department a chest x-ray was completed which demonstrated her to have a large per esophageal hernia with the majority of her abdominal contents in her chest. For further evaluation and a CT of her chest was completed which confirmed a large paraesophageal hernia with abdominal contents inside the chest and a large gallstone. She was subsequently admitted for further evaluation and treatment recommendations and was also seen by Dr. Josué Marcum from cardiothoracic surgery for evaluation and treatment recommendations. Patient is sitting up to the bedside edge on the medical surgical unit. Currently denies any complaints of pain or shortness of breath. She does report although complaints of a productive cough with clear sputum. She remains afebrile the last 24 hours. Oxygen saturation are 94% on room air. She is achieving 1000 mL on her incentive spirometry. Preoperative teaching was completed with the patient and her questions were answered to the best my satish lity. She is tolerating a clear liquid diet. Objective - Vital Signs Vital signs: Vital Signs Temp 97.8 F 08/03/19 12:48 Pulse 82 08/03/19 12:48 Resp 18 08/03/19 12:48 BP 154/74 08/03/19 12:48 Pulse Ox 94 L 08/03/19 12:48 Intake & Output 08/02/19 08/03/19 08/03/19 18:59 06:59 18:59 Intake Total 720 350 Balance 720 350 Weight 74.389 kg Intake: Oral 720 350 Other: Voiding Method Toilet # Voids 2 2 3 # Bowel Movements 1 - Constitutional General appearance: Present: cooperative, no acute distress, obese - Respiratory Details: Lung sounds are essentially clear throughout, diminished her bilateral bases. Respirations are symmetrical and nonlabored. Oxygen saturation 94% on room air. Achieving 1000 mL on her incentive spirometry. - Cardiovascular Details: Regular rhythm and rate. S1 and S2 present, negative for S3, gallop or murmur. - Gastrointestinal Gastrointestinal Comment(s): Abdomen is soft, nontender and nondistended. Active bowel sounds present IN ALL QUADRANTS. NO GUARDING OR RIGIDITY. BOWEL MOVEMENT YESTERDAY 08/02/2019. - Genitourinary Genitourinary Comment(s): Voiding clear yellow urine. - Integumentary Integumentary Comment(s): Skin is warm and dry. No clubbing or cyanosis is present. No rash or abnormal pigmentation is present. - Neurologic Neurologic Comment(s): No focal deficits. Neurologic: Present: CNII-XII intact - Musculoskeletal Musculoskeletal: Present: gait normal, generalized weakness, strength equal bilaterally - Psychiatric Psychiatric: Present: A&O x's 3, appropriate affect, intact judgment & insight - Allied health notes Allied health notes reviewed: nursing - Labs CBC & Chem 7: 08/03/19 09:55 08/03/19 09:55 Labs: Abnormal Lab Results - Last 24 Hours (Table) 08/03/19 Range/Units 09:55 Creatinine 0.44 L (0.52-1.04) mg/dL Glucose 123 H (74-99) mg/dL AST 38 H (14-36) U/L Microbiology - Last 24 Hours (Table) 07/31/19 15:55 Blood Culture - Preliminary Blood No Growth after 48 hours Assessment and Plan Assessment: 1. Paraesophogeal hernia 2. Cholelithiasis 3. Hypertension 4. Gastroesophageal reflux disease 5. Arthritis 6. Dyspnea Plan: 1. Patient is scheduled for a paraesophageal hernia repair with laparotomy approach to be performed by Dr. Josué Marcum tomorrow 08/04/2019. Dr. Keller will simultaneously perform a cholecystectomy. 2. Continue GI and DVT prophylaxis. 3. Medical management and other comorbidities per primary care service. 4. Continue to encourage use of her incentive spirometry every hour while awake. 5. Continue preoperative teaching. 6. Nothing by mouth after midnight. 7. More recommendations to follow based on patient's clinical course. Time with Patient: Greater than 30
[2019-08-03] MEDS: ALPRAZolam 0.5 MG TAB PO PRN (21:49)
[2019-08-04] MEDS ORDERED: KETOROLAC 30 MG/ML 1 ML VIAL ONE (07:51)
[2019-08-04] MEDS ORDERED: SUCCINYLCHOLINE CHLORIDE 100 MG/5 ML SYR IV ONE (07:51)
[2019-08-04] MEDS ORDERED: ONDANSETRON 4 MG/2 ML VIAL ONE (07:51)
[2019-08-04] MEDS ORDERED: fentaNYL (PF) 50 MCG/ML 2 ML AMP ONE (07:51)
[2019-08-04] MEDS ORDERED: DEXAMETHASONE SOD PHOS (MDV) 100 MG/10 ML VIAL ONE (07:51)
[2019-08-04] MEDS ORDERED: SODIUM CHLORIDE 0.9% 50 ML with ceFAZolin 2,000 MG IV ONE ×2 (07:51)
[2019-08-04] MEDS ORDERED: NEOSTIGMINE 1 MG/ML 10 ML VIAL ONE (07:51)
[2019-08-04] MEDS ORDERED: HYDROmorphone (PF) 1 MG/ML ONE (07:51)
[2019-08-04] MEDS ORDERED: PROPOFOL 10 MG/ML 20 ML VIAL IV ONE (07:51)
[2019-08-04] MEDS ORDERED: ePHEDrine SULFATE/0.9% NACL/PF 50 MG/5 ML SYRINGE IV ONE (07:51)
[2019-08-04] MEDS ORDERED: ROCURONIUM BROMIDE 10 MG/ML 10 ML VIAL IV ONE (07:51)
[2019-08-04] MEDS ORDERED: MIDAZOLAM 2 MG/2 ML VIAL ONE (07:51)
[2019-08-04] MEDS ORDERED: GLYCOPYRROLATE 0.2 MG/ML 2 ML VIAL ONE (07:51)
[2019-08-04] MEDS ORDERED: SODIUM CHLORIDE 0.9% 1,000 ML IV ONE (08:18)
[2019-08-04] MEDS ORDERED: LACTATED RINGERS 1,000 ML IV ONE (08:33)
--- NOTE | 2019-08-04 09:26 | P.OP ---
Date of Procedure: 08/04/19 Preoperative Diagnosis: Cholelithiasis Paraesophageal hernia Postoperative Diagnosis: Cholelithiasis Paraesophageal hernia Procedure(s) Performed: Open cholecystectomy Anesthesia: GETA Surgeon: Michele Keller Senior Systems Developer #1: Josué Marcum Estimated Blood Loss (ml): 5 Pathology: other (Gallbladder) Condition: stable Disposition: PACU Description of Procedure: The patient's placed the operative table in supine position. She received general anesthesia. Her abdomen was prepped and draped usual sterile fashion. Dr. Marcum open the abdomen in the midline position. A Norton retractor was placed the limb. The abdomen explored. The liver was quite enlarged and displaced towards the pelvis. The gallbladder was visualized. The gallbladder was calcified along the fundus of the gallbladder. There was a large calcified gallstone within the gallbladder. This point the cystic duct was dissected. A right angle was placed around the cystic duct and then a 0 silk tie was placed on the cystic duct. Next the gallbladder was taken down in a dome down technique. Left cautery used to dissect the gallbladder off the liver bed. The cystic artery was then clipped and divided. The dissection was taken down level cystic duct. And then the cystic duct was ligated with 0 silk ties. 2 silk ties were used to ligate the cystic duct. The gallbladder was then clamped and then the cystic duct was transected with a pair of Metzenbaum scissors. The specimen sent to pathology. There was no significant bleeding from the liver bed. The liver bed was packed a sponge. At this point Dr. Marcum repair the paraesophageal hernia. Please see his oper ative note.
--- NOTE | 2019-08-04 10:08 | P.OP ---
Date of Procedure: 08/04/19 Preoperative Diagnosis: Paraesophageal hernia Postoperative Diagnosis: Same Procedure(s) Performed: Laparotomy with repair of paraesophageal hernia Anesthesia: YANNI Surgeon: Josué Marcum Prototype Fabricator #1: Michele Keller Prototype Fabricator #2: Be Lopez Estimated Blood Loss (ml): 100 IV fluids (ml): 1,200 Urine output (ml): 350 Pathology: other (Hernia sac) Condition: stable Disposition: PACU Indications for Procedure: 59-year-old female presents with shortness of breath and inability to work. She is a known hiatal hernia for many years. She is found to have a very large paraesophageal hernia with nearly her entire abdominal contents including stomach: Small bowel and pancreas prolapse through the esophageal hiatus into the mediastinum significantly compressing both lungs and the heart. Urgent repair was requested and recommended. Operative Findings: Almost the entire small bowel much of the colon the entire stomach and pancreas were all in the chest but easily reducible. There was a large dilatation of the esophageal hiatus. There were good diaphragmatic crura for a primary repair and a solid primary repair was accomplished. Concommittent cholecystectomy of a calcified gallbladder with very large calcified stone was performed by Dr. Keller. Description of Procedure: The patient was brought to the operating room, placed supine on the operating table, anesthetized and intubated. The abdomen and lower chest were sterilely prepped and draped. Midline laparotomy incision between the xiphoid process and the above the umbilicus was performed and carried down through skin and subcutaneous tissue. Midline fascia was entered and the peritoneal space was entered uneventfully. The falciform ligament was taken down with the LigaSure device. The gallbladder was exposed. Cholecystectomy was performed by Dr. Keller with my assistance. We placed a dry lap in the bed of the gallbladder and proceeded with the hiatal hernia repair. The abdominal contents were reduced through the hiatus back into the abdominal cavity starting with small bowel and colon and then stomach. Retroperitoneal structures including the pancreas reduced during this maneuver. We then increase the tidal volume in order to try to maintain positive pressure in the chest and a keep everything reduced. There was a large amount of hernia sac and this was partially resected at this point in order to give exposure of the esophagus. Once we confirmed that the abdominal portion of the esophagus had easily reduced into the abdomi nal cavity we had adequate esophageal length we then proceeded with mobilization of the greater curvature of the stomach using the LigaSure taking down the short gastric vessels. Once this was accomplished we encircled the abdominal esophagus with a finger and divided hernia sac and soft tissue on the right side of the esophagus at the level of the hiatus and encircled the abdominal esophagus with a Mariama drain. We now continued resection of pieces of the hernia sac in order to expose the diaphragmatic crura bilaterally and as well as the entire aspect of the diaphragm in the markedly enlarged hiatus. We now began placing sutures in the diaphragmatic crura. Interrupted 0 Ethibond sutures were used to bring the diaphragmatic crura together. 5 sutures were initially placed from the left side with the esophagus pulled to the right and once this was accomplished we reassessed. There was still too much length on the hiatus. We were able to place 3 more sutures from the right side with the esophagus pulled to the left and this reduced the esophageal hiatus to an appropriate size. Once all the sutures were tied and cut, single finger was easily slid along the esophagus through the esophageal hiatus however 2 fingers could not be slid along simultaneously. The esophagus was now tacked to the diaphragm with several 2-0 silk sutures. We were very pleased with the resultant repair. The abdomen was irrigated with warm saline and good hemostasis was noted throughout. Estimated blood loss for the entire case was 100 mL. The abdomen was then closed with the double-stranded 0 PDS in the fascia, 2-0 Vicryl in the subcutaneous fat and 3-0 Vicryl subcuticular stitch. Skin glue and dry sterile dressing were applied. The NG tube had been appropriately positioned prior to closure and taped securely at the nose. Patient was transferred to recovery in stable condition.
[2019-08-04] MEDS ORDERED: NALOXONE 0.4 MG/ML 1 ML VIAL IV PRN (10:19)
[2019-08-04] MEDS ORDERED: diphenhydrAMINE 50 MG/ML 1 ML VIAL IVP PRN (10:19)
[2019-08-04] MEDS ORDERED: HYDROmorphone 0.5 MG/0.5 ML SYRINGE IVP ONE (10:36)
[2019-08-04] MEDS: ROPIVACAINE 250 MG, HYDROMORPHONE (PF) 5 MG in SODIUM CHLORIDE 0.9% 200 ML EPIDURAL PRN ×2 (10:59→11:50)
--- NOTE | 2019-08-04 11:10 | XR ---
EXAMINATION TYPE: XR chest 1V DATE OF EXAM: 08/04/2019 HISTORY: Postoperative esophageal hernia repair. REFERENCE: Previous study dated 07/31/2019. FINDINGS: There has been interval surgery. An ET tube is present. Its tip is 1.6 cm above the eunice. NG tube is within the stomach. There is a positive lung markings the left lung base. I cannot exclude a pneumothorax. The heart judy ins enlarged. There are bilateral effusions. There continues to be gaseous density behind the heart w hich may reflect residual hiatal hernia. IMPRESSION: 1. I CANNOT EXCLUDE A PNEUMOTHORAX AT THE LEFT LUNG BASE. 2. LOW-LYING ET TUBE. 3. BILATERAL EFFUSIONS. 4. AIR DENSITY BEHIND THE HEART MAY REFLECT RESIDUAL OR RECURRENT HIATAL HERNIA. THIS WAS RELAYED 2 THE PA AT THE TIME OF OF REPORTING.
[2019-08-04 11:27] LABS: Glucose,Whole Blood 171 mg/dL (75-99)
[2019-08-04 11:41] LABS: HCT 35.6 % (34.0-46.0); HGB 12.1 gm/dL (11.4-16.0); MCH 31.4 pg (25.0-35.0); MCHC 33.9 g/dL (31.0-37.0); MCV 92.6 fL (80.0-100.0); Mean Platelet Volume 6.5; Platelet Count 207 k/uL (150-450); RBC 3.84 m/uL (3.80-5.40); RDW 12.6 % (11.5-15.5); WBC 16.8 k/uL (3.8-10.6)
[2019-08-04 11:47] LABS: African American GFR (CKD) >90 (>60 ml/min/1.73 sqM); Anion Gap 6 mmol/L; Blood Urea Nitrogen 10 mg/dL (7-17); Calcium 8.4 mg/dL (8.4-10.2); Carbon Dioxide 29 mmol/L (22-30); Chloride 107 mmol/L (98-107); Glucose 172 mg/dL (74-99); Potassium 3.5 mmol/L (3.5-5.1); Sodium 142 mmol/L (137-145)
[2019-08-04] MEDS: HEPARIN SODIUM,PORCINE 5,000 UNIT/ML 1 ML VIAL SQ SCH ×2 (11:55→20:51)
[2019-08-04] MEDS: PANTOPRAZOLE 40 MG/10 ML VIAL IV SCH (11:55)
[2019-08-04] MEDS: LISINOPRIL 20 MG TAB PO SCH (11:55)
[2019-08-04] MEDS: ACETAMINOPHEN IV (For NPO) 1,000 MG in EMPTY BAG 1 BAG IVPB SCH ×2 (12:20→18:03)
[2019-08-04] MEDS: D5-0.45% NACL WITH KCL 20MEQ/L 1,000 ML IV SCH ×2 (15:56→23:26)
--- NOTE | 2019-08-04 16:20 | PN ---
PROGRESS NOTE I am covering for Dr. Hannah. DATE OF SERVICE: 08/04/2019 This 59-year-old woman who was admitted with multiple abdominal symptoms underwent open cholecystectomy and repair of paraesophageal hernia by Dr. Keller and Dr. Marcum today. The patient had repair of paraesophageal hernia. Postoperatively the patient was suspected to have pneumothorax and the patient has been admitted to the ICU for observation at this time. Past medical history reviewed. REVIEW OF SYSTEMS: CARDIOVASCULAR SYSTEM: No angina, palpitations. RESPIRATORY SYSTEM: Occasional cough. GI: As mentioned earlier. : No dysuria or retention. NERVOUS SYSTEM: No numbness, weakness. CURRENT MEDICATIONS: Reviewed. They include: 1. Tylenol p.r.n. 2. Cefazolin 2 grams IV q.8. 3. Benadryl 25 mg q.6. 4. Heparin 5000 units subcutaneously b.i.d. 5. Zestril 20 mg p.o. daily. 6. Narcan p.r.n. 7. Zofran 4 mg q.8 p.r.n. 8. Protonix 40 mg daily. PHYSICAL EXAMINATION: Patient is alert, oriented x3. Pulse 55, blood pressure 152/56, respiration 15, temperature 98 degrees, pulse ox 97% on room air. HEENT: Conjunctivae normal. Oral mucosa moist. NECK: No jugular venous distention. No carotid bruit. No lymph node enlargement. CARDIOVASCULAR SYSTEM: S1, S2 muffled. RESPIRATORY SYSTEM: Breath sounds diminished at the bases. A few scattered rhonchi. ABDOMEN: Soft. Status post surgery. LEGS: No edema. No swelling. NERVOUS SYSTEM: No focal deficit. LABS: WBC 16.8, sodium 142, potassium 3.5, glucose 172. ASSESSMENT: 1. Symptomatic cholelithiasis as well as paraesophageal hernia, status post open cholecystectomy and repair of the paraesophageal hernia. 2. Left-sided pneumothorax, status post surgery. 3. Increased white count. 4. Increased random blood sugar. 5. History of chronic obstructive pulmonary disease. 6. Gastroesophageal reflux disease. 7. Degenerative joint disease. 8. History of back pain. 9. History of anxiety. 10.FULL CODE. RECOMMENDATIONS AND DISCUSSION: In this 59-year-old woman who presented after surgery, at this time I recommend to continue current medications, continue symptomatic treatment. The pneumothorax is going to be observed conservatively by Surgery and Cardiothoracic Surgery. Otherwise, continue to monitor. Repeat labs will be ordered. Symptomatic treatment. DVT prophylaxis. Closely monitor. Further recommendations to follow. MMODL / IJN: [id number] /
[2019-08-04] MEDS ORDERED: Potassium Replacement Protocol 1 EACH MISC MISCELLANE PRN (19:37)
[2019-08-04] MEDS: POTASSIUM CHLORIDE 10 MEQ in WATER FOR INJECTION 1 100ML.BAG IVPB SCH ×2 (20:51→22:11)
[2019-08-05] MEDS: ACETAMINOPHEN IV (For NPO) 1,000 MG in EMPTY BAG 1 BAG IVPB SCH ×2 (00:12→05:18)
[2019-08-05] MEDS: POTASSIUM CHLORIDE 10 MEQ in WATER FOR INJECTION 1 100ML.BAG IVPB SCH ×2 (00:49→01:45)
[2019-08-05 04:53] LABS: Basophils % (A) 0 %; Eosinophils # (A) 0.1 k/uL (0-0.7); Eosinophils % (A) 1 %; HCT 35.7 % (34.0-46.0); HGB 12.1 gm/dL (11.4-16.0); Lymphocytes # (A) 1.4 k/uL (1.0-4.8); Lymphocytes % (A) 12 %; MCH 31.6 pg (25.0-35.0); MCHC 33.8 g/dL (31.0-37.0); MCV 93.5 fL (80.0-100.0); Mean Platelet Volume 6.7; Monocytes # (A) 0.9 k/uL (0-1.0); Monocytes % (A) 7 %; Neutrophils # (A) 9.3 k/uL (1.3-7.7); Neutrophils % (A) 79 %; Platelet Count 198 k/uL (150-450); RBC 3.82 m/uL (3.80-5.40); RDW 12.7 % (11.5-15.5); WBC 11.8 k/uL (3.8-10.6)
[2019-08-05 05:09] LABS: Albumin 2.9 g/dL (3.5-5.0); Calcium 8.5 mg/dL (8.4-10.2); Potassium 4.7 mmol/L (3.5-5.1); Total Bilirubin 0.9 mg/dL (0.2-1.3); Total Protein 5.4 g/dL (6.3-8.2)
--- NOTE | 2019-08-05 06:17 | XR ---
EXAMINATION TYPE: XR chest 1V DATE OF EXAM: 08/05/2019 HISTORY: Postoperative esophageal hernia repair. REFERENCE: Previous study dated 08/04/2019 the patient is ET tube is no longer clearly visualized and may have been removed. An NG tube is in place. Its tip is not clearly visualized. There is a loculated pneumothorax on the left. Heart size upper limits of normal. The right lung is c lear. There are small, bilateral effusions.. FINDINGS: 1. Loculated left-sided pneumothorax. 2. Small, bilateral effusions. IMPRESSION:
[2019-08-05] MEDS: LISINOPRIL 20 MG TAB PO SCH (08:17)
[2019-08-05] MEDS: PANTOPRAZOLE 40 MG/10 ML VIAL IV SCH (08:35)
[2019-08-05] MEDS: HEPARIN SODIUM,PORCINE 5,000 UNIT/ML 1 ML VIAL SQ SCH ×2 (08:36→20:11)
[2019-08-05] MEDS: ALBUTEROL NEBULIZED 2.5 MG/3 ML INHALATION PRN ×2 (08:42→16:08)
--- NOTE | 2019-08-05 09:10 | P.PN ---
Subjective Progress Note Date: 08/05/19 Principal diagnosis: Paraesophageal hernia, cholelithiasis. Past medical history significant for .hypertension, arthritis and gastroesophageal reflux disease, anxiety, osteoarthritis and chronic back pain. POD #1 laparotomy with repair of para esophageal hernia performed by Dr. Josué Marcum and an open cholecystectomy performed by Dr. Michele Keller. Patient is currently laying in bed in the intensive care unit. She is in no acute distress. She is complaining of some minimal surgical type pain rating her pain 3 out of 10 on the pain scale. Denies any complaints of shortness of breath. Oxygen saturation saturations are 97% on 2 L nasal cannula and she is achieving 500 mL with encouragement on her incentive spirometry. NG tube remains in place to low intermittent wall suction. Epidural is in place and infusing at 8 mL/h, epidural site is clean and intact. She remained hemodynamically stable and is currently on no inotropic or pressor support. IV fluids remain infusing with D5 0.45 normal saline with 20 mEq of KCl at 80 mL per hour. She reports she was up to the bedside chair last evening and tolerated it well. Objective - Vital Signs Vital signs: Vital Signs Temp 98.4 F 08/05/19 04:00 Pulse 54 L 08/05/19 06:00 Resp 13 08/05/19 06:00 BP 88/54 08/05/19 06:00 Pulse Ox 97 08/05/19 06:00 Intake & Output 08/04/19 08/05/19 08/05/19 18:59 06:59 18:59 Intake Total 1416.673 5425.1 Output Total 850 680 Balance 1053.333 373.1 Weight 80.2 kg Intake: IV 1870 960 D5-0.45% NaCl with KCl 320 960 20Meq/l 1,000 ml @ 80 mls /hr IV .[id number] [facility] Rx#: [id number] Intake, IV Titration 33.333 93.1 Amount Ropivacaine 250 mg 33.333 93.1 Hydromorphone (Pf) 5 mg In Sodium Chloride 0.9% 200 ml @ Per Protocol EPIDURAL .Q0M PRN Rx#: [id number] Output: Gastric Drainage 80 Urine 750 600 Estimated Blood Loss 100 Other: Voiding Method Indwelling Catheter Indwelling Catheter ABP, PAP, CO, CI - Last Documented Arterial Blood Pressure 96/45 - Constitutional General appearance: Present: cooperative, no acute distress, obese - Respiratory Details: Lung sounds essentially clear throughout, absent to her left lower lobe. No wheezes, rhonchi or crackles present. Respirations are symmetrical and nonlabored. Oxygen saturation 97% on 2 L nasal cannula. Achieving 500 mL on her incentive spirometry. - Cardiovascular Details: Regular rhythm and rate. S1 and S2 present, negative for S3, gallop or murmur. Bedside telemetry showing normal sinus rhythm heart rate 74. Knee-high MIRELLA hose and sequential compression devices in place to bilateral lower extremities. - Gastrointestinal Gastrointestinal Comment(s): Abdomen is soft, and nondistended. Some tenderness surrounding her midline abdominal incision. No guarding or rigidity. No organomegaly appreciated. Hypoactive bowel sounds present all 4 abdominal quadrants. NG tube in place to low intermittent wall suction. Passing flatus. - Genitourinary Genitourinary Comment(s): Cox catheter for accurate I&O. Draining clear yellow urine. - Integumentary Integumentary Comment(s): Skin is warm and dry. No clubbing or cyanosis is present. Midline abdominal incision is clean, dry and intact. Scant serosanguineous drainage. Dressing is clean, dry and in place. No redness is present. - Neurologic Neurologic Comment(s): No focal deficits. Epidural site is clean, dry and intact. No drainage or redness is present. Neurologic: Present: CNII-XII intact - Musculoskeletal Musculoskeletal: Present: gait normal, generalized weakness, strength equal bilaterally - Psychiatric Psychiatric: Present: A&O x's 3, appropriate affect, intact judgment & insight - Allied health notes Allied health notes reviewed: nursing - Labs CBC & Chem 7: 08/05/19 04:30 08/05/19 04:30 Labs: Abnormal Lab Results - Last 24 Hours (Table) 08/04/19 08/04/19 08/04/19 Range/Units 11:26 11:28 11:28 WBC 16.8 H (3.8-10.6) k/uL Neutrophils # (1.3-7.7) k/uL BUN (7-17) mg/dL Creatinine 0.46 L (0.52-1.04) mg/dL Glucose 172 H (74-99) mg/dL POC Glucose (mg/dL) 171 H (75-99) mg/dL AST (14-36) U/L ALT (9-52) U/L Total Protein (6.3-8.2) g/dL Albumin (3.5-5.0) g/dL 08/05/19 08/05/19 Range/Units 04:30 04:30 WBC 11.8 H (3.8-10.6) k/uL Neutrophils # 9.3 H (1.3-7.7) k/uL BUN 23 H (7-17) mg/dL Creatinine (0.52-1.04) mg/dL Glucose 125 H (74-99) mg/dL POC Glucose (mg/dL) (75-99) mg/dL AST 117 H (14-36) U/L ALT 136 H (9-52) U/L Total Protein 5.4 L (6.3-8.2) g/dL Albumin 2.9 L (3.5-5.0) g/dL Microbiology - Last 24 Hours (Table) 07/31/19 15:55 Blood Culture - Preliminary Blood No Growth after 96 hours - Imaging and Cardiology Chest x-ray: report reviewed, image reviewed Assessment and Plan Assessment: 1. Paraesophogeal hernia 2. Cholelithiasis 3. Hypertension 4. Gastroesophageal reflux disease 5. Arthritis 6. Dyspnea, resolved 7. Anxiety Plan: 1. Discontinue NG tube, Cox catheter and arterial line. 2. Continue GI and DVT prophylaxis. 3. Medical management and other comorbidities per primary care service. 4. Continue to encourage use of her incentive spirometry every hour while awake. Wean oxygen as tolerated. 5. Start clear liquid diet. 6. Increase activity as tolerated, ambulate in the hallway 3 times a day and as tolerated. Out of bed for all meals. Keep head of bed elevated at 30 when in bed. 7. Monitor daily labs and chest x-rays. 8. Obtain a CT of the chest without contrast, status post esophageal hernia repair. 9. Keep epidural in place today. Continue pain management per as needed orders. 10. Pulmonary management recommendations per Dr. Lazcano. 11. More recommendations to follow based on patient's clinical course. Time with Patient: Greater than 30
--- NOTE | 2019-08-05 09:43 | P.PN ---
Progress Note - Text Progress Note Date: 08/05/19 The patient is doing fairly well. Her vital signs appear stable. She states her pain is 8 out of 10. On exam her vital signs are stable. Her abdomen soft. Incision site is clean dry intact. The patient's chest x-ray reviewed. There appears to be evidence of a possible left lower lobe loculated pneumothorax this could be related to the previous hernia sac. Apparently the patient is being scheduled for computed tomography scan of the chest. She will have her diet advanced. She will have anesthesia adjust her epidural catheter.
--- NOTE | 2019-08-05 12:00 | CT ---
EXAMINATION TYPE: CT chest wo con DATE OF EXAM: 08/05/2019 COMPARISON: Previous study dated 08/01/2019. HISTORY: Post op eophageal hernia repair CT DLP: 468 mGycm. Automated Exposure Control for Dose Reduction was Utilized. TECHNIQUE: CT scan of the thorax is performed without IV contrast. FINDINGS: There is a large pneumothorax on the left with an air-fluid level. There is some shift of m ediastinal structures towards the right. There are bilateral pleural effusions, greater on the left t vital the right. There is no significant axillary, mediastinal or hilar adenopathy. There is no pleural or pericardial fluid. The heart is not enlarged. Within the abdomen. There is a small bubbles free air adjacent to the stomach in keeping with postsur gical change. Several other bubbles of free air are noted. Visualized portions of the upper abdomen a re otherwise unremarkable. There is hypertrophic spondylosis within the spine.. IMPRESSION: 1. LARGE HEMOPNEUMOTHORAX ON THE LEFT. 2. SMALL RIGHT PLEURAL EFFUSION. 3. MILD CONSOLIDATION AT THE RIGHT LUNG BASE. 3. SHIFT OF THE MEDIASTINAL STRUCTURES TOWARDS THE RIGHT. 4. FREE AIR WITHIN THE ABDOMEN IN KEEPING WITH RECENT SURGERY. I DISCUSSED THIS CASE WITH DR. SOSA AT THE TIME OF REPORTING.
--- NOTE | 2019-08-05 12:03 | P.PN ---
Subjective Progress Note Date: 08/05/19 Days evaluation of 08/05/2019 the patient is postop day #1. The patient underwent laparotomy and repair of a large paraesophageal hernia. I postop chest x-ray showed loculated pneumothorax in the lung bases bilaterally largest in the left lung base. However, the patient remains stable. This was discussed with surgery. The same findings were seen today. I ordered a CAT scan of the chest and the patient was found to have small lung volumes specially in the left. Atelectatic changes in lung bases. The lungs have not completely expanded. There is large located pneumothorax and the lower half of the left hemithorax and a smaller loculated pneumothorax on the right. Nevertheless, clinically, the patient does not have any evidence of tension. She is using incentive spirometer. She is very comfortable. Pulse oxing around 96% on 2 L of oxygen by nasal cannula. She is using the incentive spirometer and she is pulling approximately 500. She has an active urine catheter in place at 8 mL an hour. Her pain is under good control. She is hemodynamically stable. She is taking D5 half-normal infusion at the rate of 80 mL an hour. No issues with pain. No issues with respiratory difficulties. In fact she is feeling better. She is still nothing by mouth for now. Objective - Vital Signs Vital signs: Vital Signs Temp 98.4 F 08/05/19 04:00 Pulse 65 08/05/19 08:54 Resp 13 08/05/19 06:00 BP 88/54 08/05/19 06:00 Pulse Ox 97 08/05/19 06:00 Intake & Output 08/04/19 08/05/19 08/05/19 18:59 06:59 18:59 Intake Total 7245.074 9552.1 320 Output Total 850 680 80 Balance 1053.333 373.1 240 Weight 80.2 kg Intake: IV 1870 960 320 D5-0.45% NaCl with KCl 320 960 320 20Meq/l 1,000 ml @ 40 mls /hr IV .Q24H [facility] Rx#: [id number] Intake, IV Titration 33.333 93.1 Amount Ropivacaine 250 mg 33.333 93.1 Hydromorphone (Pf) 5 mg In Sodium Chloride 0.9% 200 ml @ Per Protocol EPIDURAL .Q0M PRN Rx#: [id number] Output: Gastric Drainage 80 Urine 750 600 80 Estimated Blood Loss 100 Other: Voiding Method Indwelling Catheter Indwelling Catheter ABP, PAP, CO, CI - Last Documented Arterial Blood Pressure 96/45 - Exam - Constitutional General appearance: Present: cooperative, no acute distress, obese - Respiratory Details: Lung sounds essentially clear throughout, absent to her left lower lobe. No wheezes, rhonchi or crackles present. Respirations are symmetrical and no nlabored. Oxygen saturation 97% on 2 L nasal cannula. Achieving 500 mL on her incentive spirometry. - Cardiovascular Details: Regular rhythm and rate. S1 and S2 present, negative for S3, gallop or murmur. Bedside telemetry showing normal sinus rhythm heart rate 74. Knee-high MIRELLA hose and sequential compression devices in place to bilateral lower extremities. - Gastrointestinal Gastrointestinal Comment(s): Abdomen is soft, and nondistended. Some tenderness surrounding her midline abdominal incision. No guarding or rigidity. No organomegaly appreciated. Hypoactive bowel sounds present all 4 abdominal quadrants. NG tube in place to low intermittent wall suction. Passing flatus. - Genitourinary Genitourinary Comment(s): Cox catheter for accurate I&O. Draining clear yellow urine. - Integumentary Integumentary Comment(s): Skin is warm and dry. No clubbing or cyanosis is present. Midline abdominal incision is clean, dry and intact. Scant serosanguineous drainage. Dressing is clean, dry and in place. No redness is present. - Neurologic Neurologic Comment(s): No focal deficits. Epidural site is clean, dry and intact. No drainage or redness is present. Neurologic: Present: CNII-XII intact - Musculoskeletal Musculoskeletal: Present: gait normal, generalized weakness, strength equal bilaterally - Psychiatric Psychiatric: Present: A&O x's 3, appropriate affect, intact judgment & insight - Allied health notes Allied health notes reviewed: nursing - Labs - Labs CBC & Chem 7: 08/05/19 04:30 08/05/19 04:30 Labs: Abnormal Lab Results - Last 24 Hours (Table) 08/05/19 08/05/19 Range/Units 04:30 04:30 WBC 11.8 H (3.8-10.6) k/uL Neutrophils # 9.3 H (1.3-7.7) k/uL BUN 23 H (7-17) mg/dL Glucose 125 H (74-99) mg/dL AST 117 H (14-36) U/L ALT 136 H (9-52) U/L Total Protein 5.4 L (6.3-8.2) g/dL Albumin 2.9 L (3.5-5.0) g/dL Microbiology - Last 24 Hours (Table) 07/31/19 15:55 Blood Culture - Preliminary Blood No Growth after 96 hours Assessment and Plan Plan: 1 large paraesophageal hernia and the patient underwent surgical repair and the patient is postop day #1. 2 loculated hydropneumothoraces in the lung bases bilaterally left more than right. No evidence of any tension pneumothorax. I think this is related to the affected the lungs were compressed by visceral organs of the abdomen for many years and the lungs have not completely expanded. Minimal atelectatic changes are seen in the lung bases. No evidence of any respiratory decompensation at this point in time. I do not see the need for drainage procedure for now. 3 post cholecystectomy for extensive cholelithiasis/porcelain gallbladder 4 hypertension 5 acid reflux 6 chronic dyspnea 7 osteoarthritis plan We'll discussed the findings with the general surgery. I think the pneumothoraces are postsurgical as the patient's lungs have not completely expanded probably related to long-term compressed lungs due to a massive paraesophageal hernia. She needs to work on her incentive spirometer. In my opinion, this area will ultimately get filled with fluid and will make consider doing a drainage procedure later stage. Do not see evidence of tension. Continue using incentive spirometer patient is currently on 2 L. Gradually advance diet as tolerated. DVT and GI prophylaxis. Pain control with epidural medication. Ambulate in the hallway. CAT scan of the chest was reviewed and discussed with radiology and surgery.
[2019-08-05] MEDS: D5-0.45% NACL WITH KCL 20MEQ/L 1,000 ML IV SCH (12:40)
[2019-08-05] MEDS: ROPIVACAINE 250 MG, HYDROMORPHONE (PF) 5 MG in SODIUM CHLORIDE 0.9% 200 ML EPIDURAL PRN (15:45)
--- NOTE | 2019-08-05 17:14 | P.PN ---
Progress Note - Text Progress Note Date: 08/05/19 Postoperative day #1 status post , the distal paraesophegeal hernia repair , under general endotracheal anesthesia ,epidural catheter placed for postoperative analgesia, patient doing well epidural site okay, patient currently on combination of epidural infusion solution of Ropivacaine 0.0625% and Dilaudid 20 g per mL the infusion rate at 8 ml per hour , patient had no motor deficit epidural site okay , vital signs stable , will control patient using medication for breakthrough pain Assessment and plan= post operative day # 1 patient doing well ,pain well controlled , there is no anesthesia related complications, will continue the current management
--- NOTE | 2019-08-05 19:48 | PN ---
PROGRESS NOTE DATE OF SERVICE: 08/07/2019 I am covering for Dr. Hannah. This 59-year-old woman who underwent cholelithiasis as well as repair of paraesophageal hernia, also has a pneumothorax on the left side. Dr. Lazcano and cardiovascular following the patient closely. The pneumothorax thought to be loculated in the lung bases, bilateral left more than the right. No evidence of retention, pneumothorax noted. Patient being closely monitored. A CT scan of the chest done today showed large pneumothorax and free air within the abdomen. No chest pain. No palpitations. PAST MEDICAL HISTORY: History reviewed. REVIEW OF SYSTEM: Cardio system: As mentioned earlier. RESPIRATORY: As mentioned earlier. GI: As mentioned earlier. no dysuria. Nervous systems: No numbness or weakness. CURRENT MEDICATIONS: Reviewed and include: 1. Ventolin 2.5 q.i.d. p.r.n. 2. Benadryl 25 mg q.6h. 3. Heparin 5000 subcu b.i.d. 4. Zestril 20 mg daily. 5. KCL. 6. Narcan 0.2 q.2 p.r.n. 7. Protonix 40 mg daily. 8. Ropivacaine epidural. PHYSICAL EXAM: Patient is alert, oriented x3. Pulse 54, blood pressure 88/52, respiration 13, temperature 98.2, pulse ox 97% on 2 L. HEENT: Conjunctivae normal. NECK: No JVD. CARDIOVASCULAR: S1, S2 muffled. Respirations: Breath sounds diminished in the bases. A few scattered rhonchi and crackles. Breath sounds are diminished on the left side. ABDOMEN is soft, status post surgery. LEGS: No edema. No swelling. NERVOUS SYSTEM: No focal deficits. LAB STUDIES: WBC 11.8, hemoglobin 12.1. Sodium 140, potassium 4.7. Glucose is 125, AST is 179, ALT is 117, and ALT is 136. ASSESSMENT: 1. Symptomatic cholelithiasis as well as large paraesophageal hernia, status post open cholecystectomy and repair of the paraesophageal hernia. 2. Postoperative pneumothorax, bilateral, left more than the right. 3. Increased WBC. 4. Increased random blood sugar. 5. History of chronic obstructive pulmonary disease. 6. Gastroesophageal reflux disease. 7. History of degenerative joint disease. 8. History of back pain. 9. History of anxiety. 10.FULL CODE. RECOMMENDATIONS AND DISCUSSION: Recommend to continue current medications, management. Continue monitoring. Symptomatic treatment. Otherwise, as mentioned earlier, cardiothoracic surgery and Pulmonary watching the patient for the progression of the pneumothorax. Currently, there is no evidence of a tension pneumothorax. We will continue to monitor. See orders for further details. Dr. Hannah will follow. MMODL / IJN: [id number] /
[2019-08-06 05:09] LABS: HCT 33.7 % (34.0-46.0); HGB 11.4 gm/dL (11.4-16.0); MCH 31.8 pg (25.0-35.0); MCHC 33.7 g/dL (31.0-37.0); MCV 94.4 fL (80.0-100.0); Mean Platelet Volume 6.9; Platelet Count 158 k/uL (150-450); RBC 3.57 m/uL (3.80-5.40); RDW 12.7 % (11.5-15.5); WBC 9.7 k/uL (3.8-10.6)
[2019-08-06 05:51] LABS: ALT 86 U/L (9-52); AST 85 U/L (14-36); African American GFR (CKD) >90 (>60 ml/min/1.73 sqM); Anion Gap 4 mmol/L; Blood Urea Nitrogen 22 mg/dL (7-17); Calcium 8.6 mg/dL (8.4-10.2); Carbon Dioxide 33 mmol/L (22-30); Chloride 101 mmol/L (98-107); Glucose 100 mg/dL (74-99); Potassium 4.3 mmol/L (3.5-5.1); Sodium 138 mmol/L (137-145)
--- NOTE | 2019-08-06 06:29 | P.PN ---
Progress Note - Text Progress Note Date: 08/06/19 Postoperative day #2 status post , the distal paraesophegeal hernia repair , under general endotracheal anesthesia ,epidural catheter placed for postoperative analgesia, patient doing well epidural site okay, patient currently on combination of epidural infusion solution of Ropivacaine 0.0625% and Dilaudid 20 g per mL the infusion rate at 8 ml per hour , patient had no motor deficit epidural site okay , vital signs stable , will control patient using medication for breakthrough pain Assessment and plan= post operative day #2 patient doing well ,pain well controlled , there is no anesthesia related complications, will continue the current management
[2019-08-06] MEDS ORDERED: KETOROLAC 30 MG/ML 1 ML VIAL IVP PRN (06:36)
[2019-08-06] MEDS ORDERED: ACETAMINOPHEN TAB 500 MG TAB PO PRN (06:36)
[2019-08-06] MEDS: ALBUTEROL NEBULIZED 2.5 MG/3 ML INHALATION PRN ×2 (07:59→13:11)
[2019-08-06] MEDS: LISINOPRIL 20 MG TAB PO SCH (08:57)
[2019-08-06] MEDS: PANTOPRAZOLE 40 MG/10 ML VIAL IV SCH (08:57)
[2019-08-06] MEDS: HEPARIN SODIUM,PORCINE 5,000 UNIT/ML 1 ML VIAL SQ SCH ×2 (08:57→20:36)
[2019-08-06] MEDS: guaiFENesin 600 MG TABLET.ER PO SCH ×2 (08:57→20:37)
[2019-08-06] MEDS: CYANOCOBALAMIN 500 MCG TAB PO SCH (08:58)
--- NOTE | 2019-08-06 08:58 | P.PN ---
Subjective Progress Note Date: 08/06/19 Principal diagnosis: Paraesophageal hernia with intrathoracic stomach, small bowel, and portion of the colon; cholelithiasis. Past medical history significant for hypertension, arthritis, gastroesophageal reflux disease, anxiety, and chronic back pain. POD #2 laparotomy with repair of paraesophageal hernia by Dr. Marcum and open cholecystectomy by Dr. Keller. The patient is currently sitting up in the recliner in the intensive care unit in no acute distress. Does complain of some continued mild shortness of breath, complains of some postsurgical type pain mostly controlled with epidural but does get worse with movement. She does state she is sleeping at night, and tolerating diet so far. NG tube and Cox were discontinued yesterday. Patient has voided but has not had a bowel movement, passing flatus. She was ambulating in the hallway yesterday without difficulty. Pulling slightly less than 500 mL on her incentive spirometry. Nonproductive cough present. Chest x-ray from this morning and CT scan from yesterday demonstrate lack of full expansion of th e left lung. Objective - Vital Signs Vital signs: Vital Signs Temp 98.7 F 08/06/19 04:00 Pulse 84 08/06/19 04:00 Resp 25 H 08/06/19 04:00 BP 132/83 08/06/19 04:00 Pulse Ox 94 L 08/06/19 04:00 Intake & Output 08/05/19 08/06/19 08/06/19 18:59 06:59 18:59 Intake Total 943.6 930 Output Total 140 250 Balance 803.6 680 Intake: IV 640 480 D5-0.45% NaCl with KCl 640 480 20Meq/l 1,000 ml @ 40 mls /hr IV .Q24H [facility] Rx#: [id number] Intake, IV Titration 83.6 Amount Ropivacaine 250 mg 83.6 Hydromorphone (Pf) 5 mg In Sodium Chloride 0.9% 200 ml @ Per Protocol EPIDURAL .Q0M PRN Rx#: [id number] Oral 220 450 Output: Urine 140 250 Other: Voiding Method Indwelling Catheter # Voids 1 ABP, PAP, CO, CI - Last Documented Arterial Blood Pressure 96/45 - Constitutional General appearance: Present: cooperative, no acute distress, obese - Respiratory Details: Lungs sounds diminished bilaterally, left greater than right. Respirations even, nonlabored. Currently on 2 L nasal cannula with oxygen saturation 96%. Non-productive cough present. Only able to achieve less than 500 mL on her incentive spirometry. - Cardiovascular Details: S1, S2 present. Regular rate and rhythm, sinus rhythm on telemetry. Palpable peripheral pulses bilaterally. No edema present. No calf pain or tenderness noted. Antiembolism stockings, SCDs present. - Gastrointestinal Gastrointestinal Comment(s): Abdomen soft, nondistended, tender to palpation around her surgical site. Hypoactive bowel sounds present, positive flatus, negative bowel movement since surgery. Tolerating full liquid diet. - Genitourinary Genitourinary Comment(s): Cox discontinued yesterday, patient continues to void clear, yellow urine. - Integumentary Integumentary Comment(s): Skin is warm and dry with evidence of good perfusion. Midabdominal incision well approximated and covered with dry intact dressing. Epidural insertion site without redness or drainage. - Neurologic Neurologic: Present: CNII-XII intact - Musculoskeletal Musculoskeletal: Present: gait normal, strength equal bilaterally - Psychiatric Psychiatric: Present: A&O x's 3, appropriate affect, intact judgment & insight - Allied health notes Allied health notes reviewed: nursing - Labs CBC & Chem 7: 08/06/19 04:45 08/06/19 04:41 Labs: Abnormal Lab Results - Last 24 Hours (Table) 08/06/19 08/06/19 Range/Units 04:41 04:45 RBC 3.57 L (3.80-5.40) m/uL Hct 33.7 L (34.0-46.0) % Carbon Dioxide 33 H (22-30) mmol/L BUN 22 H (7-17) mg/dL Glucose 100 H (74-99) mg/dL AST 85 H (14-36) U/L ALT 86 H (9-52) U/L Microbiology - Last 24 Hours (Table) 07/31/19 15:55 Blood Culture - Preliminary Blood No Growth after 120 hours - Imaging and Cardiology Chest x-ray: image reviewed CT scan - chest: report reviewed, image reviewed Assessment and Plan Assessment: 1. Paraesophogeal hernia with intrathoracic stomach, small bowel, and portion of the colon, status post repair via laparotomy 2. Cholelithiasis, status post open cholecystectomy 3. HTN 4. GERD 5. Arthritis 6. Dyspnea 7. Chronic back pain Plan: 1. Will increase diet to heart healthy complete food. Monitor for nausea. 2. Dulcolax suppository until bowel movement. 3. May place chest tube later today to aid in lung re-expansion. We will get repeat chest x-ray this afternoon. 4. Encourage incentive spirometry use 10 times every hour. Wean O2 as tolerated. 5. Increase activity, ambulate in hallway minimum 4 times daily, physical therapy ordered. Head of bed elevated 30 with all oral intake. 6. Will discontinue epidural catheter later today after decision made about chest tube placement. Tylenol added for pain control. Will add IV Toradol after epidural discontinued. 7. Continue GI and DVT prophylaxis. 8. Will monitor daily labs and x-rays. 9. Medical management and other comorbidities per primary care service. 10. Bronchodilators per pulmonology. 11. More recommendations to follow based on patient's clinical course. Time with Patient: Greater than 30
[2019-08-06] MEDS ORDERED: guaiFENesin-DM 600/30MG 1 EACH TAB.ER.12H PO SCH (09:00)
[2019-08-06] MEDS ORDERED: BISACODYL 10 MG SUPP RECTAL SCH (09:00)
[2019-08-06 10:07] VITALS: BMI 32.3
--- NOTE | 2019-08-06 11:52 | XR ---
EXAMINATION TYPE: XR chest 2V DATE OF EXAM: 08/06/2019 COMPARISON: Prior chest x-ray and chest CT 08/05/2019 HISTORY: Postop esophageal hernia repair, trapped lung TECHNIQUE: Frontal and lateral views of the chest are obtained. FINDINGS: There is a large hydropneumothorax with probable trapped lung at the left lung base as on prior exams. Air-fluid level present at the site of the previously identified intrathoracic stomach i s likely postoperative. Heart is not thought to be enlarged, patient is rotated toward the right. IMPRESSION: Suspect findings are postoperative.
--- NOTE | 2019-08-06 13:19 | XR ---
EXAMINATION TYPE: XR chest 1V portable DATE OF EXAM: 08/06/2019 COMPARISON: Prior chest x-ray same dated earlier time. HISTORY: Trapped lung, difficulty breathing TECHNIQUE: Single frontal view of the chest is obtained. FINDINGS: Findings are similar to prior. Lucency in the retrocardiac region likely due to patient's previous intrathoracic stomach. Suspected persistent trapped lung at the inferior left hemithorax. He art size is likely stable. Probable small right pleural effusion. IMPRESSION: Findings are similar to prior exam. Postop change as described. Hydropneumothorax.
--- NOTE | 2019-08-06 13:51 | P.PN ---
Subjective Progress Note Date: 08/06/19 Principal diagnosis: Status post surgical repair of a large paraesophageal hernia postoperative day #2. This is a 59-year-old white female patient of Dr. Hannah who presented to her PCPs office for evaluation of cold-like symptoms, and increasing exertional dyspnea over a period of last several days. Patient is a nonsmoker, and she does not have any chronic lung disease, apparently a outpatient PFT and her PCPs office showed an FEV1 of about 31% of predicted, and patient was sent in to the emergency department for evaluation, chest x-ray in emergency department demonstrated a large Dobbs esophageal hernia with intrathoracic stomach and intrathoracic bowel, causing compression of the lungs. CT of the chest, and abdomen with contrast was obtained showing a large hiatal hernia, and the stomach and multiple small bowel loops and portions of the colon were present wi thin the chest as well as the mesentery in the pancreas. There was no evidence of bowel obstruction, the lungs were grossly clear, without any concerning parenchymal mass or nodule. No greater than 1 cm hilar mediastinal lymph node. No cardial effusion, no pleural effusion or pneumothorax. There was a sizable calcified gallstone within the gallbladder, and this was a porcelain gallbladder. Patient was referred to cardiothoracic surgery for surgical repair, and patient is scheduled to undergo paraesophageal hernia repair with laparotomy on 08/04/[address] Marcum. Patient will simultaneously performed a cholecystectomy. We are consulted for pulmonary clearance as well as pulmonary and critical care monitoring in the preop and postoperative period On 08/03/2019 patient seen in follow-up on medical surgical floor. No acute complaints, she denies worsening shortness of breath, her eye a separate is anywhere from 500-1000 mL, lung sounds are clear, diminished at the bases, patient is on clear liquid diet, tolerating it well, no nausea or vomiting. No complaints of chest pain, occasional cough with production of clear phlegm. Vital signs are stable, no acute events overnight, patient is awaiting surgery tomorrow, would repair the [place] of esophageal hernia and simultaneous laparoscopic cholecystectomy Days evaluation of 08/05/2019 the patient is postop day #1. The patient underwent laparotomy and repair of a large paraesophageal hernia. I postop chest x-ray showed loculated pneumothorax in the lung bases bilaterally largest in the left lung base. However, the patient remains stable. This was discussed with surgery. The same findings were seen today. I ordered a CAT scan of the chest and the patient was found to have small lung volumes specially in the left. Atelectatic changes in lung bases. The lungs have not completely expanded. There is large located pneumothorax and the lower half of the left hemithorax and a smaller loculated pneumothorax on the right. Nevertheless, clinically, the patient does not have any evidence of tension. She is using incentive spirometer. She is very comfortable. Pulse oxing around 96% on 2 L of oxygen by nasal cannula. She is using the incentive spirometer and she is pulling approximately 500. She has an active urine catheter in place at 8 mL an hour. Her pain is under good control. She is hemodynamically stable. She is taking D5 half-normal infusion at the rate of 80 mL an hour. No issues with pain. No issues with respiratory difficulties. In fact she is feeling better. She is still nothing by mouth for now. Patient was reevaluated today on 08/06/2019, she is postoperative day #2. Underwent laparotomy and repair of large paraesophageal hernia. Patient is doing surprisingly well, in spite of the fact that she has a large loculated hydropneumothorax in the left lung. Patient denies any cough no wheezing no shortness of breath, being followed by thoracic surgery, they are entertaining the possibility of placing a chest tube, but this is will unlikely happen today. Labs were reviewed normal CBC and normal electrolytes normal renal profile Objective - Vital Signs Vital signs: Vital Signs Temp 98.1 F 08/06/19 12:00 Pulse 80 08/06/19 13:18 Resp 17 08/06/19 12:00 BP 114/72 08/06/19 12:00 Pulse Ox 99 08/06/19 12:00 Intake & Output 08/05/19 08/06/19 08/06/19 18:59 06:59 18:59 Intake Total 943.6 930 440 Output Total 140 250 Balance 803.6 680 440 Weight 80.2 kg Intake: IV 640 480 240 D5-0.45% NaCl with KCl 640 480 240 20Meq/l 1,000 ml @ 40 mls /hr IV .Q24H [facility] Rx#: [id number] Intake, IV Titration 83.6 Amount Ropivacaine 250 mg 83.6 Hydromorphone (Pf) 5 mg In Sodium Chloride 0.9% 200 ml @ Per Protocol EPIDURAL .Q0M PRN Rx#: [id number] Oral 220 450 200 Output: Urine 140 250 Other: Voiding Method Indwelling Catheter Toilet # Voids 1 1 ABP, PAP, CO, CI - Last Documented Arterial Blood Pressure 96/45 - Exam Physical Exam: Revealed a 59-year-old female in no distress. Head: Atraumatic normocephalic. HEENT:[Neck is supple.] [No neck masses.] [No thyromegaly.] [No JVD.] Chest: Diminished breath sound on the list of the left base otherwise basically unremarkable, good breath sound bilaterally. Cardiac Exam: [Normal S1 and S2, no S3 gallop, no murmur.] Abdomen: [Soft, nontender, no megaly, no rebound, no guarding, normal bowel sounds.] Extremities: [No clubbing, no edema, no cyanosis.] Neurological Exam: [No focal neurologic deficit.] Alert oriented 3. Psychiatric: Normal mood affect and normal mental status examination. Skin: No rashes be - Labs CBC & Chem 7: 08/06/19 04:45 08/06/19 04:41 Labs: Abnormal Lab Results - Last 24 Hours (Table) 08/06/19 08/06/19 Range/Units 04:41 04:45 RBC 3.57 L (3.80-5.40) m/uL Hct 33.7 L (34.0-46.0) % Carbon Dioxide 33 H (22-30) mmol/L BUN 22 H (7-17) mg/dL Glucose 100 H (74-99) mg/dL AST 85 H (14-36) U/L ALT 86 H (9-52) U/L Microbiology - Last 24 Hours (Table) 07/31/19 15:55 Blood Culture - Preliminary Blood No Growth after 120 hours Assessment and Plan Assessment: Impression: 1 status post repair of a large paraesophageal hernia postoperative day #2 2 loculated hydropneumothorax at the left lung base, no evidence of tension pneumothorax. 3 post cholecystectomy for extensive cholelithiasis and porcelain gallbladder Multiple comorbidities including hypertension, GERD with esophagitis, chronic dyspnea, and degenerative joint disease. Recommendation: Discussed the patient's condition with thoracic surgery, still entertaining the possibility of whether to place a left sided chest tube or leave it alone. Patient will continue incentive spirometry, continue updrafts, early ambulation, could possibly transfer out of the ICU sometime later today once seen by thoracic surgery and the final decision made whether to place a chest tube or not. I have a feeling this will not happen. Time with Patient: Less than 30
[2019-08-06] MEDS ORDERED: METOCLOPRAMIDE 5 MG/ML 2 ML VIAL IVP STA (14:04)
[2019-08-06] MEDS ORDERED: HYDROcodone/APAP 5-325MG 1 EACH TAB PO PRN ×2 (14:18)
--- NOTE | 2019-08-06 14:28 | XR ---
EXAMINATION TYPE: XR chest 1V portable DATE OF EXAM: 08/06/2019 Comparison: 08/06/2019 Clinical History: 59-year-old female chest tube placement Findings: Heart is normal in size. Left-sided chest tube is demonstrated with some strandy atelectasis at the l eft base. The patient's left basilar pneumothorax has decreased in size in the interval. Bilateral pl eural effusions have improved. Impression: 1. Improving bilateral pleural effusions. 2. Left sided chest tube remains in place with left basilar pneumothorax decreasing in size.
--- NOTE | 2019-08-06 14:41 | P.PN ---
Subjective Progress Note Date: 08/06/19 CHIEF COMPLAINT: Gallstone HISTORY OF PRESENT ILLNESS: Patient examined in the intensive care unit with Dr. Keller. Patient is status post open cholecystectomy and also repair of paraesophageal hernia by Dr. Marcum.. Patient is sitting up in the chair. She reports her pain is tolerable. Tolerating diet. Denies nausea or vomiting. Passing flatus. Denies BM. She has been up ambulating in the hallway. PHYSICAL EXAM: VITAL SIGNS: Reviewed. GENERAL: Well-developed in no acute distress. HEENT: No sclera icterus. Extraocular movements grossly intact. Moist buccal mucosa. Head is atraumatic, normocephalic. ABDOMEN: Soft. Nondistended. Appropriate surgical tenderness. Dressing CDI. Hypoactive bowel sounds. NEUROLOGIC: Alert and oriented. Cranial nerves II through XII grossly intact. ASSESSMENT: 1. Large paraesophageal hernia 2. Cholelithiasis PLAN: Diet as tolerated Activity as tolerated. Continue ambulation in the hallways as tolerated Dulcolax ordered per CTS. Await bowel movement. Pain control. Epidural to be discontinued today per CTS. Possible chest tube placement per CTS today Nurse practitioner note has been reviewed by physician. Signing provider agrees with the documented findings, assessment, and plan of care. Objective - Vital Signs Vital signs: Vital Signs Temp 98.1 F 08/06/19 12:00 Pulse 80 08/06/19 13:18 Resp 17 08/06/19 12:00 BP 114/72 08/06/19 12:00 Pulse Ox 99 08/06/19 12:00 Intake & Output 08/05/19 08/06/19 08/06/19 18:59 06:59 18:59 Intake Total 943.6 930 440 Output Total 140 250 Balance 803.6 680 440 Weight 80.2 kg Intake: IV 640 480 240 D5-0.45% NaCl with KCl 640 480 240 20Meq/l 1,000 ml @ 40 mls /hr IV .Q24H [facility] Rx#: [id number] Intake, IV Titration 83.6 Amount Ropivacaine 250 mg 83.6 Hydromorphone (Pf) 5 mg In Sodium Chloride 0.9% 200 ml @ Per Protocol EPIDURAL .Q0M PRN Rx#: [id number] Oral 220 450 200 Output: Urine 140 250 Other: Voiding Method Indwelling Catheter Toilet # Voids 1 1 ABP, PAP, CO, CI - Last Documented Arterial Blood Pressure 96/45 - Labs CBC & Chem 7: 08/06/19 04:45 08/06/19 04:41 Labs: Abnormal Lab Results - Last 24 Hours (Table) 08/06/19 08/06/19 Range/Units 04:41 04:45 RBC 3.57 L (3.80-5.40) m/uL Hct 33.7 L (34.0-46.0) % Carbon Dioxide 33 H (22-30) mmol/L BUN 22 H (7-17) mg/dL Glucose 100 H (74-99) mg/dL AST 85 H (14-36) U/L ALT 86 H (9-52) U/L Microbiology - Last 24 Hours (Table) 07/31/19 15:55 Blood Culture - Preliminary Blood No Growth after 120 hours
[2019-08-06] MEDS: KETOROLAC 30 MG/ML 1 ML VIAL IVP SCH (17:41)
[2019-08-06] MEDS ORDERED: SENNOSIDES-DOCUSATE SODIUM 1 EACH TAB PO SCH (21:00)
[2019-08-07] MEDS: KETOROLAC 30 MG/ML 1 ML VIAL IVP SCH ×3 (00:56→11:55)
[2019-08-07 06:13] LABS: HCT 32.3 % (34.0-46.0); HGB 10.9 gm/dL (11.4-16.0); MCHC 33.7 g/dL (31.0-37.0); MCV 94.7 fL (80.0-100.0); Mean Platelet Volume 7.2; Platelet Count 138 k/uL (150-450); RBC 3.41 m/uL (3.80-5.40); RDW 12.6 % (11.5-15.5); WBC 6.5 k/uL (3.8-10.6)
[2019-08-07 06:22] LABS: Chloride 102 mmol/L (98-107); Potassium 4.3 mmol/L (3.5-5.1); Sodium 137 mmol/L (137-145)
[2019-08-07 06:24] LABS: ALT 69 U/L (9-52); AST 62 U/L (14-36); African American GFR (CKD) >90 (>60 ml/min/1.73 sqM); Anion Gap 3 mmol/L; Blood Urea Nitrogen 26 mg/dL (7-17); Calcium 8.7 mg/dL (8.4-10.2); Carbon Dioxide 32 mmol/L (22-30); Glucose 101 mg/dL (74-99)
[2019-08-07] MEDS ORDERED: PANTOPRAZOLE 40 MG TABLET PO SCH (07:30)
--- NOTE | 2019-08-07 07:35 | P.PN ---
Subjective Principal diagnosis: Postop day #3 repair of paraesophageal hernia The patient is now postop day #3 for paraesophageal hernia repair under general anesthesia. No new complaints Stated. No significant fever or chills stated. Bowel sounds are otherwise noted. Objective - Vital Signs Vital signs: Vital Signs Temp 98.7 F 08/06/19 04:00 Pulse 84 08/06/19 04:00 Resp 25 H 08/06/19 04:00 BP 132/83 08/06/19 04:00 Pulse Ox 94 L 08/06/19 04:00 Intake & Output 08/05/19 08/06/19 08/06/19 18:59 06:59 18:59 Intake Total 943.6 930 Output Total 140 250 Balance 803.6 680 Intake: IV 640 480 D5-0.45% NaCl with KCl 640 480 20Meq/l 1,000 ml @ 40 mls /hr IV .Q24H [facility] Rx#: [id number] Intake, IV Titration 83.6 Amount Ropivacaine 250 mg 83.6 Hydromorphone (Pf) 5 mg In Sodium Chloride 0.9% 200 ml @ Per Protocol EPIDURAL .Q0M PRN Rx#: [id number] Oral 220 450 Output: Urine 140 250 Other: Voiding Method Indwelling Catheter # Voids 1 ABP, PAP, CO, CI - Last Documented Arterial Blood Pressure 96/45 - Constitutional General appearance: Present: average body habitus - EENT Eyes: Absent: abnormal pupil - Neck Neck: Absent: lymphadenopathy - Respiratory Respiratory: bilateral: CTA - Cardiovascular Rhythm: regular Heart sounds: normal: S1, S2 Abnormal Heart Sounds: Absent: S3 Gallop - Gastrointestinal General gastrointestinal: Present: soft. Absent: tenderness - Integumentary Integumentary: Absent: cellulitis - Neurologic Neurologic: Present: CNII-XII intact - Labs CBC & Chem 7: 08/06/19 04:45 08/06/19 04:41 Labs: Abnormal Lab Results - Last 24 Hours (Table) 08/06/19 08/06/19 Range/Units 04:41 04:45 RBC 3.57 L (3.80-5.40) m/uL Hct 33.7 L (34.0-46.0) % Carbon Dioxide 33 H (22-30) mmol/L BUN 22 H (7-17) mg/dL Glucose 100 H (74-99) mg/dL AST 85 H (14-36) U/L ALT 86 H (9-52) U/L Microbiology - Last 24 Hours (Table) 07/31/19 15:55 Blood Culture - Preliminary Blood No Growth after 120 hours Assessment and Plan (1) Opiate dependence Current Visit: Yes Status: Acute Code(s): F11.20 - OPIOID DEPENDENCE, UNCOMPLICATED SNOMED Code(s): 75416546 (2) Degenerative joint disease (DJD) of lumbar spine Current Visit: Yes Status: Acute Code(s): M47.816 - SPONDYLOSIS W/O MYELOPATHY OR RADICULOPATHY, LUMBAR REGION SNOMED Code(s): 832314259 (3) Dyspnea Current Visit: Yes Status: Acute Code(s): R06.00 - DYSPNEA, UNSPECIFIED SNOMED Code(s): 371657262 (4) Large hiatal hernia Current Visit: Yes Status: Acute Code(s): K44.9 - DIAPHRAGMATIC HERNIA WITHOUT OBSTRUCTION OR GANGRENE SNOMED Code(s): 61006985 Plan: Continue postop treatment. We'll continue follow from a medical perspective. Check CBC and CMP in a.m. See orders otherwise.
[2019-08-07] MEDS: CYANOCOBALAMIN 500 MCG TAB PO SCH (08:30)
[2019-08-07] MEDS: guaiFENesin 600 MG TABLET.ER PO SCH (08:30)
[2019-08-07] MEDS: LISINOPRIL 20 MG TAB PO SCH (08:30)
[2019-08-07] MEDS: HEPARIN SODIUM,PORCINE 5,000 UNIT/ML 1 ML VIAL SQ SCH (08:30)
[2019-08-07 08:38] VITALS: BP 109/69; TEMP 97.1
--- NOTE | 2019-08-07 09:11 | P.PN ---
Subjective Progress Note Date: 08/07/19 Principal diagnosis: Paraesophageal hernia, cholelithiasis. Past medical history significant for hypertension, arthritis, gastroesophageal reflux disease, anxiety, osteoarthritis and chronic back pain. POD #3 laparotomy with repair of para esophageal hernia performed by Dr. Josué Marcum and an open cholecystectomy performed by Dr. Michele Keller. Postoperative left pneumothorax, an unexpected but potential outcome of surgery. The Patient is currently sitting up to the bedside chair in the intensive care unit. She is in no acute distress. She is complaining of some surgical type pain rating her pain 9 out of 10 on the pain scale. Denies any complaints of shortness of breath. Oxygen saturation saturations are 93% on room air and she is achieving 500 mL with encouragement on her incentive spirometry. Left pleural chest tube was placed yesterday by Dr. Vinay Chappell for a postoperative left pneumothorax. No air leak is present. Draining thin serosanguineous drainage with 700 mL output in the last 24 hours and 80 mL output in the last 8 hours. Epidural was discontinued yesterday. She remains hemodynamically stable and is currently on no inotropic or pressor support. IV fluids have been saline locked and she is tolerating oral regular diet. Her bowels are moving with a bowel movement yesterday and this morning. She has a nonproductive loose cough. Objective - Vital Signs Vital signs: Vital Signs Temp 97.1 F L 08/07/19 08:00 Pulse 70 08/07/19 08:00 Resp 28 H 08/07/19 08:00 BP 109/69 08/07/19 08:00 Pulse Ox 93 L 08/07/19 08:00 Intake & Output 08/06/19 08/07/19 08/07/19 18:59 06:59 18:59 Intake Total 640 360 250 Output Total 500 80 600 Balance 140 280 -350 Weight 80.2 kg 75 kg Intake: IV 440 360 D5-0.45% NaCl with KCl 440 360 20Meq/l 1,000 ml @ 40 mls /hr IV .Q24H [facility] Rx#: [id number] Oral 200 250 Output: Chest Tube Drainage 500 80 Chest Tube Left 500 80 Urine 600 Other: Voiding Method Toilet Toilet Toilet # Voids 1 1 1 # Bowel Movements 1 1 ABP, PAP, CO, CI - Last Documented Arterial Blood Pressure 96/45 - Constitutional General appearance: Present: cooperative, no acute distress, obese - Respiratory Details: Lung sounds essentially clear throughout, diminished her left lower lobe. Respirations are symmetrical and nonlabored. Oxygen saturation are 93% on room air. Achieving 500 mL on her incentive spirometry. Left pleural chest tube remains in place to low continuous wall suction -20 cm H2O. No air leak is present. Draining thin serosanguineous drainage. - Cardiovascular Details: Regular rhythm and rate. S1 and S2 present, negative for S3, gallop or murmur. Bedside telemetry showing normal sinus rhythm heart rate 71. Knee-high MIRELLA hose and sequential compression devices in place to bilateral lower extremities. No edema present. - Gastrointestinal Gastrointestinal Comment(s): Abdomen soft, nondistended with some tenderness with palpation around her surgical site to her abdomen. Active bowel sounds present all 4 abdominal quadrants. Bowel movement this a.m. Passing flatus. Tolerating regular diet. - Genitourinary Genitourinary Comment(s): Voiding clear mau urine. - Integumentary Integumentary Comment(s): Skin is warm and dry. No clubbing or cyanosis is present. Midline abdominal incision is clean, dry and intact. No drainage or redness present. Exofin dressing is clean, dry and in place. - Neurologic Neurologic Comment(s): No focal deficits. Neurologic: Present: CNII-XII intact - Musculoskeletal Musculoskeletal: Present: gait normal, generalized weakness, strength equal bilaterally - Psychiatric Psychiatric: Present: A&O x's 3, appropriate affect, intact judgment & insight - Allied health notes Allied health notes reviewed: nursing - Labs CBC & Chem 7: 08/07/19 05:21 08/07/19 05:21 Labs: Abnormal Lab Results - Last 24 Hours (Table) 08/07/19 08/07/19 Range/Units 05:21 05:21 RBC 3.41 L (3.80-5.40) m/uL Hgb 10.9 L (11.4-16.0) gm/dL Hct 32.3 L (34.0-46.0) % Plt Count 138 L (150-450) k/uL Carbon Dioxide 32 H (22-30) mmol/L BUN 26 H (7-17) mg/dL Glucose 101 H (74-99) mg/dL AST 62 H (14-36) U/L ALT 69 H (9-52) U/L Microbiology - Last 24 Hours (Table) 07/31/19 15:55 Blood Culture - Final Blood No Growth after 144 hours - Imaging and Cardiology Chest x-ray: report reviewed, image reviewed Assessment and Plan Assessment: 1. Paraesophogeal hernia status post laparotomy with the esophageal hernia repair 2. Cholelithiasis, status post open cholecystectomy 3. Hypertension 4. Gastroesophageal reflux disease 5. Arthritis 6. Dyspnea, resolved 7. Anxiety Plan: 1. Keep left pleural chest tube in place, place chest tube to waterseal and removed wall suction. 2. Continue GI and DVT prophylaxis. 3. Medical management and other comorbidities per primary care service. 4. Continue to encourage use of her incentive spirometry every hour while awake. 5. Continue regular diet. 6. Increase activity as tolerated, ambulate in the hallway 4 times a day and as tolerated. Out of bed for all meals. Keep head of bed elevated at 30 when in bed. 7. Monitor daily labs and chest x-rays. 8. Pulmonary management recommendations per Dr. Ford. 9. Patient is awaiting bed on cardiac stepdown unit. 10. Pain management per current when necessary orders. 11. More recommendations to follow based on patient's clinical course. Time with Patient: Greater than 30
--- NOTE | 2019-08-07 09:58 | XR ---
EXAMINATION TYPE: XR chest 1V portable DATE OF EXAM: 08/07/2019 COMPARISON: Prior chest x-ray 08/06/2019 HISTORY: chest tube placement TECHNIQUE: Single frontal view of the chest is obtained. FINDINGS: Left-sided chest tube remains in place. No sizable pneumothorax is evident, bibasilar incr eased densities noted. Patient is rotated. Heart size is stable. Air-fluid level persists in the retr ocardiac region. Aorta is dense. IMPRESSION: Stable postoperative exam. No sizable pneumothorax. Probable basilar atelectasis.
[2019-08-07] MEDS: ALBUTEROL NEBULIZED 2.5 MG/3 ML INHALATION PRN (10:55)
--- NOTE | 2019-08-07 11:45 | P.PN ---
Subjective Progress Note Date: 08/07/19 Principal diagnosis: Status post surgical repair of a large paraesophageal hernia postoperative day #3 This is a 59-year-old white female patient of Dr. Hannah who presented to her PCPs office for evaluation of cold-like symptoms, and increasing exertional dyspnea over a period of last several days. Patient is a nonsmoker, and she does not have any chronic lung disease, apparently a outpatient PFT and her PCPs office showed an FEV1 of about 31% of predicted, and patient was sent in to the emergency department for evaluation, chest x-ray in emergency department demonstrated a large Dobbs esophageal hernia with intrathoracic stomach and intrathoracic bowel, causing compression of the lungs. CT of the chest, and abdomen with contrast was obtained showing a large hiatal hernia, and the stomach and multiple small bowel loops and portions of the colon were present within the chest as well as the mesentery in the pancreas. There was no evidence of bowel obstruction, the lungs were grossly clear, without any concerning parenchymal mass or nodule. No greater than 1 cm hilar mediastinal lymph node. No cardial effusion, no pleural effusion or pneumothorax. There was a sizable calcified gallstone within the gallbladder, and this was a porcelain gallbladder. Patient was referred to cardiothoracic surgery for surgical repair, and patient is scheduled to undergo paraesophageal hernia repair with laparotomy on 08/04/[address] Marcum. Patient will simultaneously performed a cholecystectomy. We are consulted for pulmonary clearance as well as pulmonary and critical care monitoring in the preop and postoperative period On 08/03/2019 patient seen in follow-up on medical surgical floor. No acute complaints, she denies worsening shortness of breath, her eye a separate is anywhere from 500-1000 mL, lung sounds are clear, diminished at the bases, patient is on clear liquid diet, tolerating it well, no nausea or vomiting. No complaints of chest pain, occasional cough with production of clear phlegm. Vital signs are stable, no acute events overnight, patient is awaiting surgery tomorrow, would repair the [place] of esophageal hernia and simultaneous laparoscopic cholecystectomy Days evaluation of 08/05/2019 the patient is postop day #1. The patient underwent laparotomy and repair of a large paraesophageal hernia. I postop chest x-ray showed loculated pneumothorax in the lung bases bilaterally largest in the left lung base. However, the patient remains stable. This was discussed with surgery. The same findings were seen today. I ordered a CAT scan of the chest and the patient was found to have small lung volumes specially in the left. Atelectatic changes in lung bases. The lungs have not completely expanded. There is large located pneumothorax and the lower half of the left hemithorax and a smaller loculated pneumothorax on the right. Nevertheless, clinically, the patient does not have any evidence of tension. She is using incentive spirometer. She is very comfortable. Pulse oxing around 96% on 2 L of oxygen by nasal cannula. She is using the incentive spirometer and she is pulling approximately 500. She has an active urine catheter in place at 8 mL an hour. Her pain is under good control. She is hemodynamically stable. She is taking D5 half-normal infusion at the rate of 80 mL an hour. No issues with pain. No issues with respiratory difficulties. In fact she is feeling better. She is still nothing by mouth for now. Patient was reevaluated today on 08/06/2019, she is postoperative day #2. Underwent laparotomy and repair of large paraesophageal hernia. Patient is doing surprisingly well, in spite of the fact that she has a large loculated hydropneumothorax in the left lung. Patient denies any cough no wheezing no shortness of breath, being followed by thoracic surgery, they are entertaining the possibility of placing a chest tube, but this is will unlikely happen today. Labs were reviewed normal CBC and normal electrolytes normal renal profile Reevaluated today on , patient is postoperative day #3, underwent surgery as noted above. Yesterday she was seen by thoracic surgery, and a chest tube was placed on the left side for her loculated hydropneumothorax. Her lung expanded quite well, and remains expanded today. Obviously it was a tension normal considering the dramatic improvement with the chest tube placement. Surprisingly the patient did not have the clinical findings and symptoms of a tension pneumothorax yesterday. Today plans are being considered for possibly removing the chest tube, and patient could be transferred to a regular medical floor. Overall the patient is doing well clinically. CBC is relatively normal hemoglobin is 10.90 Start normal renal profile is normal chest x-ray was reviewed and discussed with the patient. Objective - Vital Signs Vital signs: Vital Signs Temp 97.1 F L 08/07/19 08:00 Pulse 68 08/07/19 10:59 Resp 28 H 08/07/19 08:00 BP 109/69 08/07/19 08:00 Pulse Ox 93 L 08/07/19 08:00 Intake & Output 08/06/19 08/07/19 08/07/19 18:59 06:59 18:59 Intake Total 640 360 250 Output Total 500 80 660 Balance 140 280 -410 Weight 80.2 kg 75 kg Intake: IV 440 360 D5-0.45% NaCl with KCl 440 360 20Meq/l 1,000 ml @ 40 mls /hr IV .Q24H [facility] Rx#: [id number] Oral 200 250 Output: Chest Tube Drainage 500 80 60 Chest Tube Left 500 80 60 Urine 600 Other: Voiding Method Toilet Toilet Toilet # Voids 1 1 1 # Bowel Movements 1 1 ABP, PAP, CO, CI - Last Documented Arterial Blood Pressure 96/45 - Exam Physical Exam: Revealed a 59-year-old female in no distress. Head: Atraumatic normocephalic. HEENT:[Neck is supple.] [No neck masses.] [No thyromegaly.] [No JVD.] Chest: Good breath sound bilaterally, chest tube noted on the left side. Connected to Pleur-evac. Serosanguineous drainage noted. Cardiac Exam: [Normal S1 and S2, no S3 gallop, no murmur.] Abdomen: [Soft, nontender, no megaly, no rebound, no guarding, normal bowel sounds.] Extremities: [No clubbing, no edema, no cyanosis.] Neurological Exam: [No focal neurologic deficit.] Alert oriented 3. Psychiatric: Normal mood affect and normal mental status examination. Skin: No rashes be - Labs CBC & Chem 7: 08/07/19 05:21 08/07/19 05:21 Labs: Abnormal Lab Results - Last 24 Hours (Table) 08/07/19 08/07/19 Range/Units 05:21 05:21 RBC 3.41 L (3.80-5.40) m/uL Hgb 10.9 L (11.4-16.0) gm/dL Hct 32.3 L (34.0-46.0) % Plt Count 138 L (150-450) k/uL Carbon Dioxide 32 H (22-30) mmol/L BUN 26 H (7-17) mg/dL Glucose 101 H (74-99) mg/dL AST 62 H (14-36) U/L ALT 69 H (9-52) U/L Microbiology - Last 24 Hours (Table) 07/31/19 15:55 Blood Culture - Final Blood No Growth after 144 hours Assessment and Plan Assessment: Impression: 1 status post repair of a large paraesophageal hernia postoperative day #3 2 loculated hydropneumothorax at the left lung base, status post left sided tube thoracostomy done by thoracic surgery, with significant improvement in the hydropneumothorax at the left lung base. 3 post cholecystectomy for extensive cholelithiasis and porcelain gallbladder Multiple comorbidities including hypertension, GERD with esophagitis, chronic dyspnea, and degenerative joint disease. Recommendation: Consider removing the chest tube today. Continue incentive spirometer. Continue GI and DVT prophylaxis. Advanced diet as tolerated. Increase activity as tolerated. Continue updrafts. Consider transferring the patient out of the ICU to a regular medical floor today. Especially of the chest tube comes out today. No need for telemetry. Time with Patient: Less than 30
[2019-08-07 12:06] VITALS: RESP 26
[2019-08-07 12:26] VITALS: PULSE 70
--- NOTE | 2019-08-07 14:36 | XR ---
EXAMINATION TYPE: XR chest 1V portable DATE OF EXAM: 08/07/2019 COMPARISON: Prior chest x-ray same dated earlier time HISTORY: Chest tube removal TECHNIQUE: Single frontal view of the chest is obtained. FINDINGS: There is been interval left-sided chest tube removal. Development of some subcutaneous emp hysema noted at this level of patient's prior chest tube. There is some lucency at the left lung base which may reflect some residual trapped lung, localized pneumothorax. Persistent lucency present in the retrocardiac region. No other significant interval change. IMPRESSION: Post chest tube removal as described.
--- NOTE | 2019-08-07 14:59 | P.PN ---
Subjective Progress Note Date: 08/07/19 CHIEF COMPLAINT: [place] HISTORY OF PRESENT ILLNESS: Patient examined in the intensive care unit with Dr. Keller. Patient is status post open cholecystectomy and also repair of paraesophageal hernia by Dr. Marcum.. Patient is sitting up in the chair. She reports her pain is tolerable. Tolerating diet. Denies nausea or vomiting. Passing flatus. Reports BM. She has been up ambulating in the hallway. PHYSICAL EXAM: VITAL SIGNS: Reviewed. GENERAL: Well-developed in no acute distress. HEENT: No sclera icterus. Extraocular movements grossly intact. Moist buccal mucosa. Head is atraumatic, normocephalic. ABDOMEN: Soft. Nondistended. Appropriate surgical tenderness. Dressing CDI. Positive bowel sounds. NEUROLOGIC: Alert and oriented. Cranial nerves II through XII grossly intact. ASSESSMENT: 1. Large paraesophageal hernia 2. Cholelithiasis PLAN: Diet as tolerated Activity as tolerated. Continue ambulation in the hallways as tolerated Stable for discharge from a general surgery standpoint Patient to follow up with Dr. Keller outpatient Nurse practitioner note has been reviewed by physician. Signing provider agrees with the documented findings, assessment, and plan of care. Objective - Vital Signs Vital signs: Vital Signs Temp 97.1 F L 08/07/19 08:00 Pulse 78 08/07/19 12:00 Resp 26 H 08/07/19 12:00 BP 109/69 08/07/19 08:00 Pulse Ox 93 L 08/07/19 08:00 Intake & Output 08/06/19 08/07/19 08/07/19 18:59 06:59 18:59 Intake Total 640 360 250 Output Total 500 80 960 Balance 140 280 -710 Weight 80.2 kg 75 kg Intake: IV 440 360 D5-0.45% NaCl with KCl 440 360 20Meq/l 1,000 ml @ 40 mls /hr IV .Q24H [facility] Rx#: [id number] Oral 200 250 Output: Chest Tube Drainage 500 80 60 Chest Tube Left 500 80 60 Urine 900 Other: Voiding Method Toilet Toilet Toilet # Voids 1 1 1 # Bowel Movements 1 1 ABP, PAP, CO, CI - Last Documented Arterial Blood Pressure 96/45 - Labs CBC & Chem 7: 08/07/19 05:21 08/07/19 05:21 Labs: Abnormal Lab Results - Last 24 Hours (Table) 08/07/19 08/07/19 Range/Units 05:21 05:21 RBC 3.41 L (3.80-5.40) m/uL Hgb 10.9 L (11.4-16.0) gm/dL Hct 32.3 L (34.0-46.0) % Plt Count 138 L (150-450) k/uL Carbon Dioxide 32 H (22-30) mmol/L BUN 26 H (7-17) mg/dL Glucose 101 H (74-99) mg/dL AST 62 H (14-36) U/L ALT 69 H (9-52) U/L Microbiology - Last 24 Hours (Table) 07/31/19 15:55 Blood Culture - Final Blood No Growth after 144 hours
== END 2019-08-07 15:51 | disposition home health service (06) | DRG 327 ==
LOC: EC 15:08 → 4MS4W 17:34 → OBSVTOIN 08-02 09:15 → 2SICU 08-04 10:40
PROVIDERS: ADMIT Family Medicine; ATTEND Family Medicine
PROC: 0FT40ZZ Resection of Gallbladder, Open Approach (ICD-10-PCS; principal; 2019-08-04 08:00)
PROC: 0BQT0ZZ Repair Diaphragm, Open Approach (ICD-10-PCS; 2019-08-04 08:00)
DX: K44.9 Diaphragmatic hernia without obstruction or gangrene (principal); F11.20 Opioid dependence, uncomplicated; J93.83 Other pneumothorax; M51.06 Intervertebral disc disorders with myelopathy, lumbar region; K80.20 Calculus of gallbladder without cholecystitis without obstruction; F41.9 Anxiety disorder, unspecified; G89.29 Other chronic pain; I10 Essential (primary) hypertension; K21.0 Gastro-esophageal reflux disease with esophagitis; M17.0 Bilateral primary osteoarthritis of knee; M47.9 Spondylosis, unspecified; M51.16 Intervertebral disc disorders with radiculopathy, lumbar region; Z79.1 Long term (current) use of non-steroidal anti-inflammatories (NSAID); Z79.899 Other long term (current) drug therapy; Z82.0 Family history of epilepsy and other diseases of the nervous system; Z82.49 Family history of ischemic heart disease and other diseases of the circulatory system; Z90.710 Acquired absence of both cervix and uterus; J43.9 Emphysema, unspecified; Z91.040 Latex allergy status
CPT/HCPCS: 36415; 71045; 71046; 71250; 71260; 74160; 80048; 80053; 83605; 83735; 83880; 84450; 84460; 84484; 85025; 85027; 85610; 85730; 86850; 86900; 86901; 87040; 88302; 88304; 93005; 94150; 94640; 94760; 99285

== ENCOUNTER → 2019-08-13 | Outpatient (CLI) | payer BC ==
--- NOTE | 2019-08-13 10:14 | XR ---
EXAMINATION TYPE: XR chest 2V DATE OF EXAM: 08/13/2019 COMPARISON: Prior chest x-ray 08/07/2019 HISTORY: Post paraesophageal hernia repair TECHNIQUE: Frontal and lateral views of the chest are obtained. FINDINGS: Air-fluid level present in the retrocardiac space, lower left hemithorax. Left pleural eff usion has increased in size is likely hydropneumothorax. Heart size is likely stable. IMPRESSION: Findings are likely postoperative.
== END | disposition home or self-care (01) ==
LOC: RADXRMAIN 09:03
PROVIDERS: ATTEND Thoracic Surgery (Cardiothoracic Vascular Surgery)
DX: K43.2 Incisional hernia without obstruction or gangrene (principal)
CPT/HCPCS: 71046

== ENCOUNTER 2019-09-03 08:52 | Day surgery (SDC) | payer BC ==
[2019-09-03 09:23] VITALS: BP 132/69; PULSE 69; RESP 16; TEMP 98.2
[2019-09-03 09:25] LABS: Mean Platelet Volume 6.3; Platelet Count 189 k/uL (150-450)
[2019-09-03 09:32] LABS: Prothrombin Time 10.2 sec (9.0-12.0)
--- NOTE | 2019-09-03 12:36 | US ---
Discontinued thoracentesis HISTORY: Pleural effusion Ultrasound of the posterior left chest in preparation for thoracentesis shows a multilocular foci wit h septations. No free fluid was identified for thoracentesis. IMPRESSION: Ultrasound guided thoracentesis is aborted.
== END 2019-09-03 10:30 | disposition home or self-care (01) ==
LOC: RADPROMAIN 08:52
PROVIDERS: ATTEND Thoracic Surgery (Cardiothoracic Vascular Surgery)
DX: J90 Pleural effusion, not elsewhere classified (principal); Z88.6 Allergy status to analgesic agent
CPT/HCPCS: 76604; 85049; 85610

== ENCOUNTER → 2019-11-21 | Outpatient (CLI) | payer BC ==
--- NOTE | 2019-11-22 08:46 | CT ---
EXAMINATION TYPE: CT abdomen w con DATE OF EXAM: 11/21/2019 COMPARISON: Prior CT 08/01/2019 HISTORY: Diaphragmatic hernia w/out obstruction. Sx to repair back in July 2019, pt c/o pain sinc e. CT DLP: 1125.80 mGycm Automated exposure control for dose reduction was used. TECHNIQUE: Helical acquisition of images was performed from the lung bases through the top of iliac crest to include entire abdomen. CONTRAST: Performed with Oral Contrast and with IV Contrast, patient injected with 100 mL of Isovue 300. FINDINGS: There is been interval repair of patient's large diaphragmatic hernia. There is some low de nse fluid suspected posterior to the distal esophagus also along the right paraesophageal region dist ally measuring approximately 6.2 x 4.8 x 5.3 cm possibly representing seroma. Left hemidiaphragm is m ildly elevated in comparison to the right. Increased attenuation in subcutaneous fat likely related t o patient's surgical scar, inflammatory change extends from the subcutaneous fat anterior to the infr a xiphoid region towards the hemidiaphragm measuring approximately 12 mm in greatest transverse dimen belem. LUNG BASES: Minimal scarring suspected in the lingula. No pleural effusion. Suspect coronary artery c alcification. LIVER/GB: Patient is status post cholecystectomy. Liver shows a similar appearance to prior exam. PANCREAS: No significant abnormality is seen. SPLEEN: Mildly enlarged as on prior ADRENALS: Low dense right adrenal mass is stable. KIDNEYS: Right kidney shows hydronephrosis, there is a proximal ureteral calculus measuring approxima tely 6 mm BOWEL: No significant abnormality is seen. The stomach shows some redundancy at its upper aspect, po ssible old related to hold down into the abdomen. LYMPH NODES: No significant abnormality is appreciated. OSSEOUS STRUCTURES: Degenerative disc changes are present in the visualized spine. FREE AIR: No Free Air visible ASCITES: None visible. RETROPERITONEAL ADENOPATHY: No Retroperitoneal Adenopathy visible. OTHER: The heart is borderline enlarged IMPRESSION: POSTOP CHANGES DESCRIBED. RIGHT-SIDED PROXIMAL URETERAL CALCULUS WITH MILD HYDRONEPHROSIS. Splenom egaly shows a similar appearance. Additional findings above.
== END | disposition home or self-care (01) ==
LOC: RADCTMAIN 16:41
PROVIDERS: ATTEND Thoracic Surgery (Cardiothoracic Vascular Surgery)
DX: N13.2 Hydronephrosis with renal and ureteral calculous obstruction (principal); R16.1 Splenomegaly, not elsewhere classified; K44.9 Diaphragmatic hernia without obstruction or gangrene; Z98.890 Other specified postprocedural states; Z91.040 Latex allergy status
CPT/HCPCS: 74160; Q9967

== ENCOUNTER 2020-01-01 02:28 | Inpatient (IN) | payer BC ==
[2020-01-01] MEDS ORDERED: SODIUM CHLORIDE 0.9% 1,000 ML IV STA (02:51)
[2020-01-01] MEDS ORDERED: cefTRIAXone IN SWFI 1,000 MG/10 ML SYRINGE IVP STA (02:52)
[2020-01-01 03:23] LABS: Basophils % (A) 0 %; Eosinophils # (A) 0.1 k/uL (0-0.7); Eosinophils % (A) 1 %; HCT 35.6 % (34.0-46.0); HGB 12.3 gm/dL (11.4-16.0); Lymphocytes # (A) 0.6 k/uL (1.0-4.8); Lymphocytes % (A) 5 %; MCH 30.7 pg (25.0-35.0); MCHC 34.7 g/dL (31.0-37.0); MCV 88.5 fL (80.0-100.0); Mean Platelet Volume 8.6; Monocytes # (A) 0.7 k/uL (0-1.0); Monocytes % (A) 5 %; Neutrophils # (A) 11.5 k/uL (1.3-7.7); Neutrophils % (A) 89 %; Platelet Count 163 k/uL (150-450); RBC 4.02 m/uL (3.80-5.40); RDW 12.3 % (11.5-15.5)
[2020-01-01] MEDS ORDERED: ACETAMINOPHEN TAB 500 MG TAB PO STA (03:29)
[2020-01-01] MEDS ORDERED: MORPHINE SULFATE 4 MG/ML SYRINGE IV STA (03:29)
[2020-01-01] MEDS ORDERED: ONDANSETRON 4 MG/2 ML VIAL IVP STA (03:29)
--- NOTE | 2020-01-01 03:30 | ED ---
General Adult HPI - General Chief complaint: Urogenital Stated complaint: Fever Time Seen by Provider: 01/01/20 02:50 Source: patient, family Mode of arrival: ambulatory Limitations: no limitations - History of Present Illness Initial comments: Dictation was produced using [employer] dictation software. please excuse any grammatical, word or spelling errors. Chief Complaint: 59-year-old female presents with urinary symptoms. History of Present Illness: 59-year-old female presents with urinary symptoms. Patient was sent in by her urologist. Patient has been developing symptoms of nausea, vomiting, dysuria. Patient has stent performed for kidney stone. Stent was placed approximately 11 days ago. Patient denies any abdominal pain. No cough or shortness of breath. No runny nose. No overt sick contacts. The ROS documented in this emergency department record has been reviewed and confirmed by me. Those systems with pertinent positive or negative responses have been documented in the HPI. All other systems are other negative and/or noncontributory. PHYSICAL EXAM: General Impression: Alert and oriented x3, not in acute distress HEENT: Normocephalic atraumatic, extra-ocular movements intact, pupils equal and reactive to light bilaterally, mucous membranes moist. Cardiovascular: Heart regular rate and rhythm, S1&S2 audible, no murmurs, rubs or gallops Chest: Lungs clear to auscultation bilaterally, no rhonchi, no wheeze, no rales Abdomen: Bowel sounds present, abdomen soft, non-tender, non-distended, no organomegaly Musculoskeletal: Pulses present and equal in all extremities, no peripheral edema Motor: no focal deficits noted Neurological: CN II-XII grossly intact, no focal motor or sensory deficits noted Skin: Intact with no visualized rashes Psych: Normal affect and mood ED course: 59-year-old female presents with infectious symptoms and urinary symptoms after stent placement 11 days ago. She had a conversation with her urologist and told her to come to the emergency department. All signs upon a rrival shows temperature 101.5, heart rate of 131. Rest of vital signs are unremarkableLaboratory evaluation obtained. Leukocytosis of 13.0. Metabolic panel shows potassium 2.9. Patient given [place] potassium. Good to creatinine ratio concerning for dehydration. Analysis shows greater than 182 white blood cells, nitrate positive. Discussed concerning for UTI. Given a temperature and tachycardia that is concerned of UTI sepsis. Patient given ceftriaxone. Discussed patient case with urologist Dr. stockton who requests the patient be admitted to medicine team with him on consult. Patient agreeable with disposition. EKG interpretation: Ventricular rate 121, sinus tachycardia, CO interval 166, QRS 76, QTC 451. No CO prolongation, no QTC prolongation, no ST or T-wave changes noted. . Overall, this EKG is unremarkable - Related Data Home Medications Medication Instructions Recorded Confirmed ALPRAZolam [Xanax] 0.5 mg PO BID PRN 07/31/19 09/03/19 Albuterol Inhaler [Ventolin Hfa 2 puff INHALATION RT-Q6H PRN 07/31/19 09/03/19 Inhaler] Hydrocodone/Acetaminophen [[place] 1 tab PO BID PRN 07/31/19 09/03/19 10-325] Lisinopril [Zestril] 20 mg PO DAILY 07/31/19 09/03/19 Meloxicam [Mobic] 15 mg PO DAILY 07/31/19 09/03/19 Vitamin E 100 unit PO DAILY 07/31/19 09/03/19 Previous Rx's Medication Instructions Recorded Cyanocobalamin [Vitamin B-12] 500 mcg PO DAILY #30 tab 08/07/19 Pantoprazole [Protonix] 40 mg PO AC-BRKFST #30 tablet. 08/07/19 Allergies Allergy/AdvReac Type Severity Reaction Status Date / Time latex Allergy Rash/Hives Verified 01/01/20 02:47 aspirin AdvReac irritates Verified 01/01/20 02:47 stomach Review of Systems ROS Statement: Those systems with pertinent positive or pertinent negative responses have been documented in the HPI. ROS Other: All systems not noted in ROS Statement are negative. Past Medical History Past Medical History: COPD, GERD/Reflux, Osteoarthritis (OA) Additional Past Medical History / Comment(s): Back Pain, kidney stones History of Any Multi-Drug Resistant Organisms: None Reported Past Surgical History: Hernia Repair, Hysterectomy Additional Past Surgical History / Comment(s): renal stent Past Anesthesia/Blood Transfusion Reactions: No Reported Reaction Past Psychological History: Anxiety Smoking Status: Never smoker Past Alcohol Use History: None Reported Past Drug Use History: None Reported - Past Family History Father Additional Family Medical History / Comment(s): Alzheimers Mother Family Medical History: Congestive Heart Failure (CHF) Brother(s) Family Medical History: Cancer Sister(s) Family Medical History: Cancer General Exam Limitations: no limitations Course Vital Signs 01/01/20 02:42 Temperature 101.5 F H Pulse Rate 131 H Respiratory 18 Rate Blood Pressure 110/74 O2 Sat by Pulse 92 L Oximetry Medical Decision Making - Lab Data Result diagrams: 01/01/20 03:11 01/01/20 03:11 Lab Results 01/01/20 01/01/20 01/01/20 Range/Units 02:58 03:11 03:11 WBC 13.0 H (3.8-10.6) k/uL RBC 4.02 (3.80-5.40) m/uL Hgb 12.3 (11.4-16.0) gm/dL Hct 35.6 (34.0-46.0) % MCV 88.5 (80.0-100.0) fL MCH 30.7 (25.0-35.0) pg MCHC 34.7 (31.0-37.0) g/dL RDW 12.3 (11.5-15.5) % Plt Count 163 (150-450) k/uL Neutrophils % 89 % Lymphocytes % 5 % Monocytes % 5 % Eosinophils % 1 % Basophils % 0 % Neutrophils # 11.5 H (1.3-7.7) k/uL Lymphocytes # 0.6 L (1.0-4.8) k/uL Monocytes # 0.7 (0-1.0) k/uL Eosinophils # 0.1 (0-0.7) k/uL Basophils # 0.0 (0-0.2) k/uL Sodium 134 L (137-145) mmol/L Potassium 2.9 L (3.5-5.1) mmol/L Chloride 99 (98-107) mmol/L Carbon Dioxide 26 (22-30) mmol/L Anion Gap 9 mmol/L BUN 26 H (7-17) mg/dL Creatinine 0.72 (0.52-1.04) mg/dL Est GFR (CKD-EPI)AfAm >90 (>60 ml/min/1.73 sqM) Est GFR (CKD-EPI)NonAf >90 (>60 ml/min/1.73 sqM) Glucose 150 H (74-99) mg/dL Plasma Lactic Acid J[place] (0.7-2.0) mmol/L Calcium 8.7 (8.4-10.2) mg/dL Magnesium 1.6 (1.6-2.3) mg/dL Urine Color Yellow Urine Appearance Turbid H (Clear) Urine pH 6.0 (5.0-8.0) Ur Specific [place] 1.020 (1.001-1.035) Urine Protein 2+ H (Negative) Urine Glucose (UA) Negative (Negative) Urine Ketones Negative (Negative) Urine Blood Moderate H (Negative) Urine Nitrite Positive H (Negative) Urine Bilirubin Negative (Negative) Urine Urobilinogen 4.0 (<2.0) mg/dL Ur Leukocyte Esterase Large H (Negative) Urine RBC 138 H (0-5) /hpf Urine WBC >182 H (0-5) /hpf Urine WBC Clumps Moderate H (None) /hpf Ur Squamous Epith Cells <1 (0-4) /hpf Urine Bacteria Moderate H (None) /hpf Urine Mucus Rare H (None) /hpf 01/01/20 Range/Units 03:11 WBC (3.8-10.6) k/uL RBC (3.80-5.40) m/uL Hgb (11.4-16.0) gm/dL Hct (34.0-46.0) % MCV (80.0-100.0) fL MCH (25.0-35.0) pg MCHC (31.0-37.0) g/dL RDW (11.5-15.5) % Plt Count (150-450) k/uL Neutrophils % % Lymphocytes % % Monocytes % % Eosinophils % % Basophils % % Neutrophils # (1.3-7.7) k/uL Lymphocytes # (1.0-4.8) k/uL Monocytes # (0-1.0) k/uL Eosinophils # (0-0.7) k/uL Basophils # (0-0.2) k/uL Sodium (137-145) mmol/L Potassium (3.5-5.1) mmol/L Chloride (98-107) mmol/L Carbon Dioxide (22-30) mmol/L Anion Gap mmol/L BUN (7-17) mg/dL Creatinine (0.52-1.04) mg/dL Est GFR (CKD-EPI)AfAm (>60 ml/min/1.73 sqM) Est GFR (CKD-EPI)NonAf (>60 ml/min/1.73 sqM) Glucose (74-99) mg/dL Plasma Lactic Acid J[place] 2.0 (0.7-2.0) mmol/L Calcium (8.4-10.2) mg/dL Magnesium (1.6-2.3) mg/dL Urine Color Urine Appearance (Clear) Urine pH (5.0-8.0) Ur Specific [place] (1.001-1.035) Urine Protein (Negative) Urine Glucose (UA) (Negative) Urine Ketones (Negative) Urine Blood (Negative) Urine Nitrite (Negative) Urine Bilirubin (Negative) Urine Urobilinogen (<2.0) mg/dL Ur Leukocyte Esterase (Negative) Urine RBC (0-5) /hpf Urine WBC (0-5) /hpf Urine WBC Clumps (None) /hpf Ur Squamous Epith Cells (0-4) /hpf Urine Bacteria (None) /hpf Urine Mucus (None) /hpf Disposition Clinical Impression: Sepsis secondary to UTI Disposition: ADMITTED IP TO THIS HOSP Condition: Fair Referrals: Rober Hannah MD [Primary Care Provider] - 1-2 days Decision Time: 03:54
[2020-01-01 03:32] LABS: African American GFR (CKD) >90 (>60 ml/min/1.73 sqM); Anion Gap 9 mmol/L; Blood Urea Nitrogen 26 mg/dL (7-17); Calcium 8.7 mg/dL (8.4-10.2); Carbon Dioxide 26 mmol/L (22-30); Chloride 99 mmol/L (98-107); Glucose 150 mg/dL (74-99); Magnesium 1.6 mg/dL (1.6-2.3); Non-African American GFR(CKD) >90 (>60 ml/min/1.73 sqM); Potassium 2.9 mmol/L (3.5-5.1); Sodium 134 mmol/L (137-145)
[2020-01-01 03:41] LABS: Appearance,Urine Turbid (Clear); Bacteria,Urine Moderate /hpf; Bilirubin,Urine Negative (Negative); Blood,Urine Moderate (Negative); Color,Urine Yellow; Glucose,Urine (UA) Negative (Negative); Ketones,Urine Negative (Negative); Leukocyte Esterase,Urine Large (Negative); Mucus,Urine Rare /hpf; Nitrite,Urine Positive (Negative); Protein,Urine 2+ (Negative); RBC,Urine 138 /hpf (0-5); Squamous Epithelial Cell,Urine <1 /hpf (0-4); WBC,Urine >182 /hpf (0-5)
[2020-01-01] MEDS ORDERED: NALOXONE 0.4 MG/ML 1 ML VIAL IV PRN (03:51)
[2020-01-01] MEDS ORDERED: SODIUM CHLORIDE 0.9% 1,000 ML IV SCH (04:00)
[2020-01-01] MEDS: POTASSIUM CHLORIDE 20 MEQ in WATER FOR INJECTION 1 100ML.BAG IVPB SCH ×2 (04:06→06:03)
[2020-01-01] MEDS ORDERED: ALBUTEROL NEBULIZED 2.5 MG/3 ML INHALATION PRN (09:14)
[2020-01-01] MEDS: MORPHINE SULFATE 4 MG/ML SYRINGE IVP PRN ×2 (09:20→17:22)
[2020-01-01] MEDS ORDERED: ALPRAZolam 0.5 MG TAB PO PRN (12:56)
[2020-01-01] MEDS ORDERED: ALBUTEROL INHALER 60 PUFF/8 GM INHALER INHALATION PRN (12:56)
--- NOTE | 2020-01-01 13:02 | P.HPIM ---
History of Present Illness H&P Date: 01/01/20 Chief Complaint: Fever This is a history of physical and a 59-year-old white female with known history of having hernia who had significant problems with fever yesterday. She's recently had ureteral stent placed and given her symptomatology, it is felt that this is the permanent cause of her fever. She is now presenting with UTI with sepsis. After IV rehydration she is feeling much better. We will continue appropriate antibiotic treatment. Review of Systems Constitutional: Reports fever, Denies chills Eyes: denies blurred vision, denies pain Ears, nose, mouth and throat: Denies headache, Denies sore throat Cardiovascular: Denies chest pain, Denies shortness of breath Respiratory: Denies cough Gastrointestinal: Denies abdominal pain, Denies diarrhea, Denies nausea, Denies vomiting Genitourinary: Reports as per HPI, Reports flank pain Musculoskeletal: Denies myalgias Past Medical History Past Medical History: COPD, GERD/Reflux, Osteoarthritis (OA) Additional Past Medical History / Comment(s): Back Pain, kidney stones History of Any Multi-Drug Resistant Organisms: None Reported Past Surgical History: Cholecystectomy, Hernia Repair, Hysterectomy Additional Past Surgical History / Comment(s): renal stent Past Anesthesia/Blood Transfusion Reactions: No Reported Reaction Past Psychological History: Anxiety Smoking Status: Never smoker Past Alcohol Use History: None Reported Past Drug Use History: None Reported - Past Family History Father Additional Family Medical History / Comment(s): Alzheimers Mother Family Medical History: Congestive Heart Failure (CHF) Brother(s) Family Medical History: Cancer Sister(s) Family Medical History: Cancer Medications and Allergies Home Medications Medication Instructions Recorded Confirmed Type ALPRAZolam [Xanax] 0.5 mg PO TID PRN 07/31/19 01/01/20 History Albuterol Inhaler [Ventolin Hfa 2 puff INHALATION RT-Q6H PRN 07/31/19 01/01/20 History Inhaler] Hydrocodone/Acetaminophen [[place] 1 tab PO Q8H PRN 07/31/19 01/01/20 History 10-325] Lisinopril [Zestril] 20 mg PO DAILY 07/31/19 01/01/20 History Meloxicam [Mobic] 15 mg PO DAILY 07/31/19 01/01/20 History Cyanocobalamin [Vitamin B-12] 500 mcg PO DAILY #30 tab 08/07/19 01/01/20 Rx Pantoprazole [Protonix] 40 mg PO NAVYA-RIKKI #30 tablet. 08/07/19 01/01/20 Rx Tamsulosin [Flomax] 0.4 mg PO DAILY 01/01/20 01/01/20 History Allergies Allergy/AdvReac Type Severity Reaction Status Date / Time latex Allergy Rash/Hives Verified 01/01/20 09:44 aspirin AdvReac irritates Verified 01/01/20 09:44 stomach Physical Exam Vitals: Vital Signs Temp Pulse Pulse Pulse Resp BP BP 01/01/20 08:44 98.0 F 80 16 96/62 01/01/20 08:10 98.2 F 60 18 01/01/20 05:35 102 H 01/01/20 05:15 99.3 F 102 H 20 103/64 01/01/20 04:10 102.3 F H 114 H 16 113/62 01/01/20 02:42 101.5 F H 131 H 18 110/74 Pulse Ox 01/01/20 08:44 97 01/01/20 08:10 94 L 01/01/20 05:35 01/01/20 05:15 92 L 01/01/20 04:10 92 L 01/01/20 02:42 92 L Intake and Output 12/31/19 01/01/20 01/01/20 22:59 06:59 14:59 Output Total 350 Balance -350 Output: Urine 350 Other: Voiding Method Toilet Toilet Weight 89.9 kg - Constitutional General appearance: no acute distress - EENT Eyes: EOMI - Neck Neck: no lymphadenopathy - Respiratory Respiratory: bilateral: CTA - Cardiovascular Rhythm: regular Heart sounds: normal: S1, S2 Abnormal Heart Sounds: no S3 Gallop - Gastrointestinal General gastrointestinal: soft, no tenderness - Integumentary Integumentary: no cyanotic - Psychiatric Psychiatric: A&O x's 3, appropriate affect Results CBC & Chem 7: 01/01/20 03:11 01/01/20 03:11 Labs: Abnormal Lab Results - Last 24 Hours (Table) 01/01/20 01/01/20 01/01/20 Range/Units 02:58 03:11 03:11 WBC 13.0 H (3.8-10.6) k/uL Neutrophils # 11.5 H (1.3-7.7) k/uL Lymphocytes # 0.6 L (1.0-4.8) k/uL Sodium 134 L (137-145) mmol/L Potassium 2.9 L (3.5-5.1) mmol/L BUN 26 H (7-17) mg/dL Glucose 150 H (74-99) mg/dL Urine Appearance Turbid H (Clear) Urine Protein 2+ H (Negative) Urine Blood Moderate H (Negative) Urine Nitrite Positive H (Negative) Ur Leukocyte Esterase Large H (Negative) Urine RBC 138 H (0-5) /hpf Urine WBC >182 H (0-5) /hpf Urine WBC Clumps Moderate H (None) /hpf Urine Bacteria Moderate H (None) /hpf Urine Mucus Rare H (None) /hpf Thrombosis Risk Factor Assmnt - Choose All That Apply Any of the Below Risk Factors Present?: Yes Each Factor Represents 1 point: Abnormal pulmonary function (COPD), Age 41-60 years, Obesity (BMI >25) Other Risk Factors: No Other congenital or acquired thrombophilia - If yes, enter type in comment: No Thrombosis Risk Factor Assessment Total Risk Factor Score: 3 Thrombosis Risk Factor Assessment Level: Moderate Risk Assessment and Plan (1) Sepsis secondary to UTI Current Visit: Yes Status: Acute Code(s): A41.9 - SEPSIS, UNSPECIFIED ORGANISM; N39.0 - URINARY TRACT INFECTION, SITE NOT SPECIFIED SNOMED Code(s): 691520061 Plan: We'll go ahead and continue IV antibiotics. Check CBC and CMP in a.m. Element of hypokalemia. Urology is now consulted. See orders otherwise.
[2020-01-01] MEDS: ALBUTEROL NEBULIZED 2.5 MG/3 ML INHALATION SCH ×3 (14:03→20:07)
[2020-01-01] MEDS: SODIUM CHLORIDE 0.9% 1,000 ML IV SCH ×2 (14:25→23:20)
--- NOTE | 2020-01-01 16:53 | P.GSCN ---
History of Present Illness Consult date: 01/01/20 Reason for Consult: UTI/Sepsis Requesting physician: Rober Hannah History of present illness: Ms Sandoval is a 59-year-old female with known history of right sided ureteral stone S/P right sided ureteroscopy with stent placement recently. She presented last night to the ED with fever/chills. She also has been complaining of bladder pressure, urgency and dysuria . Denies any other symptoms. Her stent is still in place Review of Systems - Constitutional Reports chills, Reports fever - EENT Ears, nose, mouth and throat: Denies dysphagia - Cardiovascular Denies chest pain, Denies shortness of breath - Respiratory Denies cough, Denies 7 - Gastrointestinal Reports as per HPI - Genitourinary Genitourinary: Reports dysuria, Reports urge incontinence, Denies flank pain - Musculoskeletal Denies fractures, Denies muscle weakness - Neurological Denies headaches, Denies syncope - Psychiatric Denies confusion Past Medical History Past Medical History: COPD, GERD/Reflux, Osteoarthritis (OA) Additional Past Medical History / Comment(s): Back Pain, kidney stones History of Any Multi-Drug Resistant Organisms: None Reported Past Surgical History: Cholecystectomy, Hernia Repair, Hysterectomy Additional Past Surgical History / Comment(s): renal stent Past Anesthesia/Blood Transfusion Reactions: No Reported Reaction Past Psychological History: Anxiety Smoking Status: Never smoker Past Alcohol Use History: None Reported Past Drug Use History: None Reported - Past Family History Father Additional Family Medical History / Comment(s): Alzheimers Mother Family Medical History: Congestive Heart Failure (CHF) Brother(s) Family Medical History: Cancer Sister(s) Family Medical History: Cancer Medications and Allergies Home Medications Medication Instructions Recorded Confirmed Type ALPRAZolam [Xanax] 0.5 mg PO TID PRN 07/31/19 01/01/20 History Albuterol Inhaler [Ventolin Hfa 2 puff INHALATION RT-Q6H PRN 07/31/19 01/01/20 History Inhaler] Hydrocodone/Acetaminophen [[place] 1 tab PO Q8H PRN 07/31/19 01/01/20 History 10-325] Lisinopril [Zestril] 20 mg PO DAILY 07/31/19 01/01/20 History Meloxicam [Mobic] 15 mg PO DAILY 07/31/19 01/01/20 History Cyanocobalamin [Vitamin B-12] 500 mcg PO DAILY #30 tab 08/07/19 01/01/20 Rx Pantoprazole [Protonix] 40 mg PO NAVYA-NELIKFST #30 tablet. 08/07/19 01/01/20 Rx Tamsulosin [Flomax] 0.4 mg PO DAILY 01/01/20 01/01/20 History Allergies Allergy/AdvReac Type Severity Reaction Status Date / Time latex Allergy Rash/Hives Verified 01/01/20 09:44 aspirin AdvReac irritates Verified 01/01/20 09:44 stomach Surgical - Exam Vital Signs Temp Pulse Resp BP Pulse Ox 101.5 F H 131 H 18 110/74 92 L 01/01/20 02:42 01/01/20 02:42 01/01/20 02:42 01/01/20 02:42 01/01/20 02:42 - General well developed, well nourished, no distress - Eyes normal ocular movement, no icteric - ENT no hearing loss, no congestion - Neck no masses, no venous distension - Abdomen Abdomen: soft, non tender - Musculoskeletal normal gait - Psychiatric oriented to time, oriented to person, oriented to place, speech is normal Results - Labs 01/01/20 03:11 01/01/20 03:11 Abnormal Lab Results - Last 24 Hours (Table) 01/01/20 01/01/20 01/01/20 Range/Units 02:58 03:11 03:11 WBC 13.0 H (3.8-10.6) k/uL Neutrophils # 11.5 H (1.3-7.7) k/uL Lymphocytes # 0.6 L (1.0-4.8) k/uL Sodium 134 L (137-145) mmol/L Potassium 2.9 L (3.5-5.1) mmol/L BUN 26 H (7-17) mg/dL Glucose 150 H (74-99) mg/dL Urine Appearance Turbid H (Clear) Urine Protein 2+ H (Negative) Urine Blood Moderate H (Negative) Urine Nitrite Positive H (Negative) Ur Leukocyte Esterase Large H (Negative) Urine RBC 138 H (0-5) /hpf Urine WBC >182 H (0-5) /hpf Urine WBC Clumps Moderate H (None) /hpf Urine Bacteria Moderate H (None) /hpf Urine Mucus Rare H (None) /hpf Diabetes panel 01/01/20 Range/Units 03:11 Sodium 134 L (137-145) mmol/L Potassium 2.9 L (3.5-5.1) mmol/L Chloride 99 (98-107) mmol/L Carbon Dioxide 26 (22-30) mmol/L BUN 26 H (7-17) mg/dL Creatinine 0.72 (0.52-1.04) mg/dL Glucose 150 H (74-99) mg/dL Calcium 8.7 (8.4-10.2) mg/dL Calcium panel 01/01/20 Range/Units 03:11 Calcium 8.7 (8.4-10.2) mg/dL Pituitary panel 01/01/20 Range/Units 03:11 Sodium 134 L (137-145) mmol/L Potassium 2.9 L (3.5-5.1) mmol/L Chloride 99 (98-107) mmol/L Carbon Dioxide 26 (22-30) mmol/L BUN 26 H (7-17) mg/dL Creatinine 0.72 (0.52-1.04) mg/dL Glucose 150 H (74-99) mg/dL Calcium 8.7 (8.4-10.2) mg/dL Adrenal panel 01/01/20 Range/Units 03:11 Sodium 134 L (137-145) mmol/L Potassium 2.9 L (3.5-5.1) mmol/L Chloride 99 (98-107) mmol/L Carbon Dioxide 26 (22-30) mmol/L BUN 26 H (7-17) mg/dL Creatinine 0.72 (0.52-1.04) mg/dL Glucose 150 H (74-99) mg/dL Calcium 8.7 (8.4-10.2) mg/dL Assessment and Plan Assessment: 59 yo female S/P Right sided Ureteroscopy, admitted to hospital with sepsis secondary to UTI Plan: -F/U on urine culture, will need abx for minimum of 14 days -Will keep stent in place for now, can keep f/u for stent removal on Tuesday -RBUS -Pyriduim 100 mg TID for dysuria
[2020-01-01] MEDS: PHENAZOPYRIDINE 100 MG TAB PO SCH ×2 (18:16→23:19)
[2020-01-01] MEDS ORDERED: ACETAMINOPHEN TAB 325 MG TAB PO PRN (19:04)
--- NOTE | 2020-01-01 19:08 | US ---
EXAMINATION TYPE: US kidneys/renal and bladder DATE OF EXAM: 01/01/2020 COMPARISON: NONE CLINICAL HISTORY: UTI. UTI EXAM MEASUREMENTS: Right Kidney: 10.5 x 4.4 x 5.1 cm Left Kidney: 10.6 x 4.7 x 4.4 cm Limitations due to body habitus Right Kidney: No hydronephrosis or masses seen Left Kidney: No hydronephrosis or masses seen Bladder: Not full Bilateral Jets seen: no There is no evidence for hydronephrosis at this point in time. No nephrolithiasis is seen. No breanne s are identified. IMPRESSION: No evidence of renal mass or obstruction. No renal atrophy seen.
[2020-01-01] MEDS ORDERED: LEVOFLOXACIN 500MG-D5W PMX 500 MG in DEXTROSE/WATER 1 100ML.BAG IVPB SCH (22:30)
[2020-01-02] MEDS: ALBUTEROL NEBULIZED 2.5 MG/3 ML INHALATION SCH ×4 (02:23→20:34)
[2020-01-02] MEDS: PANTOPRAZOLE 40 MG TABLET PO SCH (06:55)
[2020-01-02] MEDS: HYDROcodone/APAP 10-325MG 1 EACH TAB PO PRN ×2 (06:56→16:55)
--- NOTE | 2020-01-02 07:26 | P.PN ---
Subjective Progress Note Date: 01/02/20 Principal diagnosis: UTI with sepsis The patient had a fever spike and possible culture. She'll placed on Rocephin and gentamicin today. Objective - Vital Signs Vital signs: Vital Signs Temp 98.9 F 01/01/20 23:15 Pulse 88 01/02/20 02:33 Resp 16 01/01/20 23:15 BP 96/61 01/01/20 23:15 Pulse Ox 97 01/01/20 23:15 Intake & Output 01/01/20 01/02/20 01/02/20 18:59 06:59 18:59 Intake Total 240 1850 Output Total 350 1375 Balance -110 475 Intake: Intake, IV Titration 1150 Amount Levofloxacin 500Mg-D5w 100 Pmx 500 mg In Dextrose/ Water 1 100ml.bag @ 100 mls/hr IVPB Q24H [facility] Rx#: [id number] Sodium Chloride 0.9% 1, 1000 000 ml @ 100 mls/hr IV . Q10H [facility] Rx#:[id number] cefTRIAXone 1 gm In 50 Sodium Chloride 0.9% 50 ml @ 100 mls/hr IVPB Q24H [facility] Rx#:[id number] Oral 240 700 Output: Urine 350 1375 Other: Voiding Method Toilet Toilet # Voids 1 1 - Constitutional General appearance: Present: average body habitus - EENT Eyes: Absent: abnormal pupil - Neck Neck: Absent: lymphadenopathy - Respiratory Respiratory: bilateral: CTA - Cardiovascular Rhythm: regular Heart sounds: normal: S1, S2 Abnormal Heart Sounds: Absent: S3 Gallop - Gastrointestinal General gastrointestinal: Present: soft. Absent: tenderness - Integumentary Integumentary: Absent: cellulitis - Labs CBC & Chem 7: 01/01/20 03:11 01/01/20 03:11 Labs: Microbiology - Last 24 Hours (Table) 01/01/20 03:35 Blood Culture Gram Stain - Preliminary Blood Blood Culture - Preliminary Escherichia coli 01/01/20 02:58 Urine Culture - Preliminary Urine,Voided 01/01/20 03:35 Blood Culture - Final Blood Assessment and Plan (1) Sepsis secondary to UTI Current Visit: Yes Status: Acute Code(s): A41.9 - SEPSIS, UNSPECIFIED ORGANISM; N39.0 - URINARY TRACT INFECTION, SITE NOT SPECIFIED SNOMED Code(s): 243802024 Plan: We'll go ahead and continue IV antibiotics. Check CBC and CMP in a.m. Element of hypokalemia. Urology is now consulted. See orders otherwise. Time with Patient: Greater than 30
[2020-01-02] MEDS ORDERED: GENTAMICIN PER PHARMACY MISCELLANE PRN (07:30)
[2020-01-02] MEDS: PHENAZOPYRIDINE 100 MG TAB PO SCH ×3 (08:52→20:58)
[2020-01-02] MEDS: TAMSULOSIN 0.4 MG CAP.ER.24H PO SCH (08:52)
[2020-01-02] MEDS: CYANOCOBALAMIN 500 MCG TAB PO SCH (08:52)
[2020-01-02] MEDS: LISINOPRIL 20 MG TAB PO SCH (08:55)
[2020-01-02] MEDS: GENTAMICIN 330 MG in SODIUM CHLORIDE 0.9% 100 ML IVPB SCH (09:52)
[2020-01-02] MEDS: SODIUM CHLORIDE 0.9% 1,000 ML IV SCH ×2 (09:53→18:33)
[2020-01-03] MEDS: HYDROcodone/APAP 10-325MG 1 EACH TAB PO PRN ×4 (00:12→22:39)
[2020-01-03] MEDS: ALBUTEROL NEBULIZED 2.5 MG/3 ML INHALATION SCH ×4 (02:24→18:28)
[2020-01-03] MEDS: SODIUM CHLORIDE 0.9% 1,000 ML IV SCH ×2 (05:46→09:31)
[2020-01-03] MEDS: PANTOPRAZOLE 40 MG TABLET PO SCH (07:01)
[2020-01-03] MEDS: TAMSULOSIN 0.4 MG CAP.ER.24H PO SCH (07:51)
[2020-01-03] MEDS: PHENAZOPYRIDINE 100 MG TAB PO SCH ×3 (07:52→22:40)
[2020-01-03] MEDS: CYANOCOBALAMIN 500 MCG TAB PO SCH (07:52)
[2020-01-03] MEDS: LISINOPRIL 20 MG TAB PO SCH (07:52)
--- NOTE | 2020-01-03 08:16 | P.PN ---
Subjective Principal diagnosis: UTI with sepsis The patient had a fever spike and possible culture. The patient essentially awaiting removal of stent tomorrow. No fevers. No chills stated. Objective - Vital Signs Vital signs: Vital Signs Temp 98.2 F 01/03/20 07:56 Pulse 72 01/03/20 07:56 Resp 18 01/03/20 07:56 BP 111/70 01/03/20 07:56 Pulse Ox 95 01/03/20 07:56 Intake & Output 01/02/20 01/03/20 01/03/20 18:59 06:59 18:59 Intake Total 1080 500 480 Output Total 1100 1250 Balance -20 -750 480 Intake: Oral 1080 500 480 Output: Urine 1100 1250 Other: Voiding Method Toilet Toilet - Constitutional General appearance: Present: average body habitus - EENT Eyes: Absent: abnormal pupil - Neck Neck: Absent: lymphadenopathy - Respiratory Respiratory: bilateral: CTA - Cardiovascular Rhythm: regular Heart sounds: normal: S1, S2 Abnormal Heart Sounds: Absent: S3 Gallop - Gastrointestinal General gastrointestinal: Present: soft. Absent: tenderness - Integumentary Integumentary: Absent: cellulitis - Neurologic Neurologic: Present: CNII-XII intact - Musculoskeletal Musculoskeletal: Present: gait normal - Labs CBC & Chem 7: 01/01/20 03:11 01/01/20 03:11 Labs: Microbiology - Last 24 Hours (Table) 01/01/20 02:58 Urine Culture - Preliminary Urine,Voided Gram Neg Bacilli 01/01/20 19:10 Blood Culture - Preliminary Blood No Growth after 24 hours 01/01/20 15:39 Blood Culture - Preliminary Blood No Growth after 24 hours 01/01/20 03:35 Blood Culture Gram Stain - Preliminary Blood Blood Culture - Preliminary Escherichia coli Assessment and Plan (1) Sepsis secondary to UTI Current Visit: Yes Status: Acute Code(s): A41.9 - SEPSIS, UNSPECIFIED ORGANISM; N39.0 - URINARY TRACT INFECTION, SITE NOT SPECIFIED SNOMED Code(s): 814983913 Plan: We'll go ahead and continue IV antibiotics. Check CBC and CMP in a.m. Anticipate removal of stent in the a.m. Time with Patient: Less than 30
[2020-01-03 08:32] LABS: HCT 29.1 % (34.0-46.0); MCHC 33.8 g/dL (31.0-37.0); MCV 91.8 fL (80.0-100.0); Mean Platelet Volume 9.1; Platelet Count 129 k/uL (150-450); RBC 3.17 m/uL (3.80-5.40); RDW 12.4 % (11.5-15.5); WBC 6.5 k/uL (3.8-10.6)
[2020-01-03 08:39] LABS: HGB 9.8 gm/dL (11.4-16.0)
[2020-01-03 08:41] LABS: ALT 17 U/L (4-34); AST 21 U/L (14-36); African American GFR (CKD) >90 (>60 ml/min/1.73 sqM); Albumin 3.1 g/dL (3.5-5.0); Alkaline Phosphatase 77 U/L (38-126); Anion Gap 7 mmol/L; Blood Urea Nitrogen 9 mg/dL (7-17); Calcium 8.6 mg/dL (8.4-10.2); Carbon Dioxide 27 mmol/L (22-30); Chloride 106 mmol/L (98-107); Glucose 105 mg/dL (74-99); Non-African American GFR(CKD) >90 (>60 ml/min/1.73 sqM); Potassium 3.6 mmol/L (3.5-5.1); Sodium 140 mmol/L (137-145); Total Bilirubin 0.5 mg/dL (0.2-1.3); Total Protein 5.9 g/dL (6.3-8.2)
[2020-01-03] MEDS: GENTAMICIN 330 MG in SODIUM CHLORIDE 0.9% 100 ML IVPB SCH (09:31)
--- NOTE | 2020-01-03 14:17 | CDI ---
Documentation Clarification Form Date: 01/03/2020 02:11:14 PM From: Molly Luevano RN, CCDS Admit Date: 01/02/2020 10:13:00 AM Patient Name: Kalpana Sandoval Visit Number: [id number] ATTENTION: The Clinical Documentation Specialists (CDI) and [facility] Coding Staff appreciate your assistance in clarifying documentation. Please respond to the clarification below the line at the bottom and electronically sign. The CDI & [facility] Coding staff will review the response and follow-up if needed. Please note: Queries are made part of the Legal Health Record. If you have any questions, please contact the author of this message via ITS. Dr. Rober Arnett declining Hgb and Hct have been noted and lacks specificity to accurately reflect your patients severity of condition and clarification is needed. History/Risk Factors: Ureteral stent recently, acute UTI with sepsis this admission, COPD Clinical indicators: 12/31-01/02 Hemoglobin: 12.3/9.8 12/31-01/02 Hematocrit: 35.6/29.1 Treatment: Monitoring labs 12/31 1L IVF Bolus 0.9% NS followed buy 100 cc/hr In order to capture the severity of condition, please clarify the clinical significance of the declining Hgb and Hct and etiology if known: Acute blood loss anemia Acute on chronic blood loss anemia Chronic blood loss anemia Iron deficiency anemia Anemia of chronic disease Nutritional anemia Unable to determine Other, please specify (Last Revision: July 2017) MTDD
[2020-01-04] MEDS: ALBUTEROL NEBULIZED 2.5 MG/3 ML INHALATION SCH ×4 (00:54→15:35)
[2020-01-04] MEDS: HYDROcodone/APAP 10-325MG 1 EACH TAB PO PRN ×3 (07:06→20:52)
[2020-01-04] MEDS: PANTOPRAZOLE 40 MG TABLET PO SCH (07:07)
--- NOTE | 2020-01-04 08:32 | P.PN ---
Subjective Principal diagnosis: UTI with sepsis The patient has had no fever The patient essentially awaiting removal of stent today. No fevers. No chills stated. Objective - Vital Signs Vital signs: Vital Signs Temp 98.3 F 01/04/20 00:16 Pulse 74 01/04/20 00:16 Resp 18 01/04/20 00:16 BP 128/71 01/04/20 00:16 Pulse Ox 94 L 01/04/20 00:16 Intake & Output 01/03/20 01/04/20 01/04/20 18:59 06:59 18:59 Intake Total 1380 980 Balance 1380 980 Intake: Oral 1380 980 Other: Voiding Method Toilet Toilet # Voids 1 2 1 # Bowel Movements 1 2 - Constitutional General appearance: Present: average body habitus - EENT Eyes: Absent: abnormal pupil - Neck Neck: Absent: lymphadenopathy - Respiratory Respiratory: bilateral: CTA - Cardiovascular Rhythm: regular Heart sounds: normal: S1, S2 Abnormal Heart Sounds: Absent: S3 Gallop - Gastrointestinal General gastrointestinal: Present: soft. Absent: tenderness - Psychiatric Psychiatric: Present: A&O x's 3 - Labs CBC & Chem 7: 01/03/20 07:32 01/03/20 07:32 Labs: Abnormal Lab Results - Last 24 Hours (Table) 01/03/20 01/03/20 Range/Units 07:32 07:32 RBC 3.17 L (3.80-5.40) m/uL Hgb 9.8 L D (11.4-16.0) gm/dL Hct 29.1 L (34.0-46.0) % Plt Count 129 L (150-450) k/uL Glucose 105 H (74-99) mg/dL Total Protein 5.9 L (6.3-8.2) g/dL Albumin 3.1 L (3.5-5.0) g/dL Microbiology - Last 24 Hours (Table) 01/01/20 19:10 Blood Culture - Preliminary Blood No Growth after 48 hours 01/01/20 02:58 Urine Culture - Final Urine,Voided Escherichia coli 01/01/20 15:39 Blood Culture - Preliminary Blood No Growth after 48 hours 01/01/20 03:35 Blood Culture Gram Stain - Final Blood Blood Culture - Final Escherichia coli Assessment and Plan (1) Sepsis secondary to UTI Current Visit: Yes Status: Acute Code(s): A41.9 - SEPSIS, UNSPECIFIED ORGANISM; N39.0 - URINARY TRACT INFECTION, SITE NOT SPECIFIED SNOMED Code(s): 142564160 Plan: We'll go ahead and continue IV antibiotics. Anticipate removal of stent today. We will DC when cleared by consultants.
[2020-01-04] MEDS: PHENAZOPYRIDINE 100 MG TAB PO SCH ×3 (09:22→22:33)
[2020-01-04] MEDS: LISINOPRIL 20 MG TAB PO SCH (09:22)
[2020-01-04] MEDS: GENTAMICIN 330 MG in SODIUM CHLORIDE 0.9% 100 ML IVPB SCH (09:23)
[2020-01-04] MEDS: TAMSULOSIN 0.4 MG CAP.ER.24H PO SCH (09:24)
[2020-01-04] MEDS: CYANOCOBALAMIN 500 MCG TAB PO SCH (09:24)
[2020-01-04] MEDS: SODIUM CHLORIDE 0.9% 1,000 ML IV SCH ×2 (13:59→18:28)
[2020-01-05] MEDS: ALBUTEROL NEBULIZED 2.5 MG/3 ML INHALATION SCH ×3 (01:14→13:57)
[2020-01-05] MEDS: HYDROcodone/APAP 10-325MG 1 EACH TAB PO PRN ×2 (04:03→12:08)
[2020-01-05] MEDS: SODIUM CHLORIDE 0.9% 1,000 ML IV SCH ×2 (06:29→09:35)
[2020-01-05] MEDS: PANTOPRAZOLE 40 MG TABLET PO SCH (06:49)
[2020-01-05 07:45] LABS: African American GFR (CKD) >90 (>60 ml/min/1.73 sqM); Non-African American GFR(CKD) >90 (>60 ml/min/1.73 sqM)
[2020-01-05 08:58] VITALS: RESP 16
[2020-01-05] MEDS: GENTAMICIN 330 MG in SODIUM CHLORIDE 0.9% 100 ML IVPB SCH (09:25)
[2020-01-05] MEDS: LISINOPRIL 20 MG TAB PO SCH (09:30)
[2020-01-05] MEDS: TAMSULOSIN 0.4 MG CAP.ER.24H PO SCH (09:30)
[2020-01-05] MEDS: CYANOCOBALAMIN 500 MCG TAB PO SCH (09:30)
[2020-01-05] MEDS: PHENAZOPYRIDINE 100 MG TAB PO SCH (09:31)
[2020-01-05 11:29] VITALS: BP 157/84; PULSE 68; TEMP 98.1
--- NOTE | 2020-01-05 15:12 | P.PN ---
Subjective Progress Note Date: 01/04/20 No acute overnight event, stent removed w/o issue Denies any urinary issues or flank pain Objective - Vital Signs Vital signs: Vital Signs Temp 98.1 F 01/05/20 11:05 Pulse 68 01/05/20 11:05 Resp 16 01/05/20 11:05 BP 157/84 01/05/20 11:05 Pulse Ox 95 01/05/20 11:05 Intake & Output 01/04/20 01/05/20 01/05/20 18:59 06:59 18:59 Intake Total 480 600 Balance 480 600 Intake: Oral 480 600 Other: Voiding Method Toilet Toilet # Voids 1 1 1 # Bowel Movements 1 - Constitutional General appearance: Present: no acute distress - Gastrointestinal General gastrointestinal: Present: soft. Absent: distended - Psychiatric Psychiatric: Present: A&O x's 3 - Labs CBC & Chem 7: 01/03/20 07:32 01/05/20 06:51 Labs: Abnormal Lab Results - Last 24 Hours (Table) 01/05/20 Range/Units 06:51 Creatinine 0.51 L (0.52-1.04) mg/dL Microbiology - Last 24 Hours (Table) 01/01/20 19:10 Blood Culture - Preliminary Blood No Growth after 72 hours 01/01/20 15:39 Blood Culture - Preliminary Blood No Growth after 72 hours Assessment and Plan Assessment: 59 yo female S/P Right sided Ureteroscopy, admitted to hospital with sepsis secondary to UTI Plan: -F/U on urine culture, will need abx for minimum of 14 days -Stent removed w/o issues -Ok for discharge F/U as an outpatient in 2 months
== END 2020-01-05 13:00 | disposition home or self-care (01) | DRG 872 ==
LOC: EC 02:28 → 6PED 03:52 → OBSVTOIN 01-02 10:13 → 6PED 01-03 00:59
PROVIDERS: ADMIT Family Medicine; ATTEND Family Medicine
DX: A41.9 Sepsis, unspecified organism (principal); N39.0 Urinary tract infection, site not specified; E87.6 Hypokalemia; F41.9 Anxiety disorder, unspecified; J44.9 Chronic obstructive pulmonary disease, unspecified; K21.9 Gastro-esophageal reflux disease without esophagitis; M19.90 Unspecified osteoarthritis, unspecified site; N20.0 Calculus of kidney; Z79.1 Long term (current) use of non-steroidal anti-inflammatories (NSAID); Z79.899 Other long term (current) drug therapy; Z82.0 Family history of epilepsy and other diseases of the nervous system; Z82.49 Family history of ischemic heart disease and other diseases of the circulatory system; Z87.442 Personal history of urinary calculi; Z90.710 Acquired absence of both cervix and uterus; Z80.9 Family history of malignant neoplasm, unspecified; Z88.6 Allergy status to analgesic agent; Z91.040 Latex allergy status
CPT/HCPCS: 36415; 76770; 80048; 80053; 80170; 81001; 82565; 83605; 83735; 85025; 85027; 87040; 87077; 87086; 87186; 93005; 94640; 96365; 96375; 99284

== ENCOUNTER → 2023-01-26 | Outpatient (CLI) | payer MEDICARE, OTHER ==
--- NOTE | 2023-01-26 11:27 | CT ---
EXAMINATION TYPE: CT urogram wo/w con CT DLP: 7271 mGycm, Automated exposure control for dose reduction was used. 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 Coronal and sagittal reformats were performed. 2D and 3D reconstructions are performed to assist visualization of the urinary tract on a separate workstat ion. Contrast used: None. Oral contrast used: None. FINDINGS: LOWER CHEST: No significant findings. GENITOURINARY: RIGHT KIDNEY AND URETER: Nonobstructing right calculus measuring 7 mm. Extrarenal pelvis is present. No hydronephrosis or hydroureter. No renal mass or other lesions. No urothelial lesions: no filling d efect, dilation, stricture or wall thickening. LEFT KIDNEY AND URETER: No calculi. No hydronephrosis or hydroureter. There is a left renal mass whic h is demonstrates enhancement is better appreciated on delayed imaging measuring 3.0 x 2.3 cm. No uro thelial lesions: no filling defect, dilation, stricture or wall thickening. URINARY BLADDER: Moderately well distended. Limited evaluation secondary to partial filling of the bl adder with excreted IV contrast. No calculi or obvious mass. REPRODUCTIVE: Unremarkable. ABDOMEN LIVER: Unremarkable. GALLBLADDER AND BILE DUCTS: The gallbladder surgically absent. PANCREAS: Unremarkable. SPLEEN: Unremarkable. ADRENAL GLANDS: Right adrenal lipid rich adenoma measuring 10 Hounsfield units and up to 1.8 cm. STOMACH AND BOWEL: Small hiatal hernia. No evidence for bowel obstruction. Layering debris seen withi n the distal esophagus. PERITONEUM: No evidence of pneumoperitoneum, free fluid, or adenopathy. VASCULATURE: No evidence of aortic aneurysm. MUSCULOSKELETAL: No acute osseous abnormalities LYMPH NODES: No gross evidence for lymphadenopathy. SOFT TISSUE/ABDOMINAL WALL: Diastases versus ventral wall diastasis/herniation measuring up to 9.4 x 1.9 cm. IMPRESSION: 1. 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 No evidence of lymphadenopathy to suggest metastatic disease. 2. Right nonobstructing renal calculus. 3. Moderate hiatal hernia.
== END | disposition home or self-care (01) ==
LOC: RADCTMAIN 08:06
PROVIDERS: ATTEND Family Medicine
DX: D41.12 Neoplasm of uncertain behavior of left renal pelvis (principal); N20.0 Calculus of kidney; K44.9 Diaphragmatic hernia without obstruction or gangrene
CPT/HCPCS: 74178; 74400; Q9967

== ENCOUNTER → 2023-02-25 | Outpatient (CLI) | payer MEDICARE, OTHER ==
--- NOTE | 2023-02-26 09:13 | MR ---
EXAMINATION TYPE: MR kidney wo/w con DATE OF EXAM: 02/25/2023 9:22 PM INDICATION: Patient age:Female; 63 years old; Reason for study: D41.02; . Kidney cyst COMPARISON: CT scan abdomen from urogram 01/26/2023. CT 11/21/2019, 08/01/2019 TECHNIQUE: Multiplanar multi-sequence imaging was performed without contrast. Post contrast imaging was performed. Post IV contrast subtraction images were also submitted for review. IV Contrast: 10 cc Gadavist FINDINGS: LOWER CHEST: No gross irregularity. ABDOMEN Liver: Signal loss on in phase chemical shift imaging. Gallbladder and Bile ducts: The gallbladder appears surgically absent. Pancreas: Unremarkable. Spleen: Signal loss on in phase chemical shift imaging. Adrenal glands: Right adrenal nodule with signal loss on chemical shift imaging out of phase measurin g up to 15 mm compatible with benign lipid rich adrenal normal. The left adrenal gland is unremarkabl e. Kidneys: Right kidney is without evidence for suspicious mass or hydronephrosis. There is a extrarenal pelvis. Left kidney demonstrates area of concern which appears smaller when comparing to prior CT now measuri ng roughly 13 x 10 x 9 mm. This lesion demonstrates delayed enhancement. Which is confirmed on subtra ction imaging. This lesion may been present on 11/21/2019 CT measuring 8 mm in 2019 measuring 8 mm also . Unclear why most recent prior CT urogram lesion appears larger measuring 3.0 x 2.3 cm. Stomach and Bowel: Small hiatal hernia is present. Peritoneum: No evidence of pneumoperitoneum or free fluid. Vasculature: Unremarkable. No aortic aneurysm. Musculoskeletal: The osseous structures appear intact. Lymph Nodes: No gross evidence for lymphadenopathy. Abdominal wall: Diastases of the rectus abdominis muscle. IMPRESSION: 1. There is an interval decrease in size of the the left renal lesion compared to prior CT 01/26/2023 . On today's exam the lesion measures 13 mm. This lesion appears to be present on 2019 and 2018 studi es where it measured 8 mm. The lesion is hypoenhancing on subtraction imaging suggesting hypoenhancin g renal cell carcinoma. Given decrease in size and likely present on 2018 and 2019 exam short-term fo llow-up is recommended with MRI renal mass protocol in 3-6 months. 2. Iron deposition within the liver and spleen. 3. Right lipid rich adrenal adenoma.
== END | disposition home or self-care (01) ==
LOC: RADMRIMAIN 21:00
PROVIDERS: ATTEND Urology
DX: D41.02 Neoplasm of uncertain behavior of left kidney (principal); D35.01 Benign neoplasm of right adrenal gland; N28.1 Cyst of kidney, acquired
CPT/HCPCS: 74183; A9585

== ENCOUNTER → 2023-07-04 | Outpatient (CLI) | payer MEDICARE, OTHER ==
--- NOTE | 2023-07-04 09:36 | MR ---
EXAMINATION TYPE: MR kidney wo/w con DATE OF EXAM: 07/04/2023 8:52 AM INDICATION: Patient age:Female; 63 years old; Reason for study: D41.02 NEOPLASM OF UNCERTAIN BEHAVIOR OF LEFT KIDN; [facility]. COMPARISON: MR kidney 02/25/2023, CT urogram 01/26/2023, CT abdomen 11/21/2019 TECHNIQUE: Multiplanar multi-sequence imaging was performed of the abdomen without and with IV contr ast. The patient was given 12 ccs of Gadavist intravenously and dynamic imaging was performed. Post IV contrast subtraction images were also submitted for review. FINDINGS: LOWER CHEST: No gross irregularity. ABDOMEN Liver: Unremarkable. Gallbladder and Bile ducts: The gallbladder appears surgically absent. Pancreas: Unremarkable. Spleen: Unremarkable. Adrenal glands: Unremarkable left adrenal gland. Stable right adrenal gland nodule with dropout of si gnal on out of phase imaging compatible with a lipid rich adrenal adenoma measuring 1.5 cm. Kidneys: No hydronephrosis. Prominent right extra renal pelvis redemonstrated. No suspicious right re nal mass. Decrease in size of left renal lesion measuring 5 mm with minimal delayed enhancement. Prev iously measured 13 mm. No new suspicious renal lesions. Stomach and Bowel: Small to moderate hiatal hernia redemonstrated. Peritoneum: No evidence of pneumoperitoneum, free fluid, or adenopathy. Vasculature: Unremarkable. No aortic aneurysm. Abdominal wall: Diastases of the rectus abdominis muscle redemonstrated. Musculoskeletal: The osseous structures appear intact. IMPRESSION: Interval decrease in size of left renal lesion measuring 5 mm from prior examination when it measured 13 mm. Continued follow-up with MRI abdomen in 6-12 months is recommended.
== END | disposition home or self-care (01) ==
LOC: RADMRIMAIN 08:00
PROVIDERS: ATTEND Urology
DX: D41.02 Neoplasm of uncertain behavior of left kidney (principal); N28.89 Other specified disorders of kidney and ureter
CPT/HCPCS: 74183; A9585

== ENCOUNTER → 2024-07-30 | Outpatient (CLI) | payer MEDICARE ==
--- NOTE | 2024-07-30 11:44 | XR ---
EXAMINATION TYPE: XR chest 2V DATE OF EXAM: 07/30/2024 COMPARISON: 08/13/2019 TECHNIQUE: PA and lateral views submitted. HISTORY: COPD FINDINGS: The lungs are clear and there is no pneumothorax, pleural effusion, or focal pneumonia. Heart size normal and no overt failure. Osseous structures demonstrate hypertrophic and degenerative changes of the spine. Elevated left hemidiaphragm. Arthropathy of the shoulders. There is a hiatal hernia. IMPRESSION: 1. No acute process. [facility], , 07/30/2024 11:42 AM
[2024-07-30 15:18] LABS: Basophils # (A) 0.06 X 10*3/uL (0.00-0.10); Basophils % (A) 0.9 %; Eosinophils # (A) 0.14 X 10*3/uL (0.04-0.35); HCT 38.1 % (37.2-46.3); HGB 12.5 g/dL (12.0-15.0); Lymphocytes # (A) 1.47 X 10*3/uL (0.90-5.00); Lymphocytes % (A) 21.3 %; MCHC 32.8 g/dL (32.0-37.0); MCV 94.5 FL (80.0-97.0); Mean Platelet Volume 10.7 FL (9.5-12.2); Monocytes # (A) 0.69 X 10*3/uL (0.20-1.00); NRBC Per 100 WBC 0 X 10*3/uL (0.00-0.01); Neutrophils % (A) 65.4 %; Platelet Count 220 X 10*3/uL (140-440); RBC 4.03 X 10*6/uL (4.10-5.20); WBC 6.89 X 10*3/uL (4.50-10.00)
[2024-07-30 15:29] LABS: ALT 18 U/L (8-44); AST 17 U/L (13-35); Albumin/Globulin Ratio 1.74 Ratio (1.60-3.17); Alkaline Phosphatase 75 U/L (41-126); BUN/Creat Ratio 11.45 Ratio (12.00-20.00); Blood Urea Nitrogen 12.6 mg/dL (9.0-27.0); Calcium 9.3 mg/dL (8.7-10.3); Carbon Dioxide 31.6 mmol/L (21.6-31.8); Chloride 104 mmol/L (96-109); Globulin 2.3 g/dL (1.6-3.3); Glucose 101 mg/dL (70-110); Magnesium 1.9 mg/dL (1.5-2.4); Potassium 3.8 mmol/L (3.5-5.5); Sodium 146 mmol/L (135-145); Total Bilirubin 0.3 mg/dL (0.3-1.2); Total Protein 6.3 g/dL (6.2-8.2)
[2024-07-30 16:31] LABS: INR 0.98 sec (0.93-1.11); Prothrombin Time 10.6 sec (9.9-11.9)
[2024-07-30 20:24] LABS: Appearance,Urine Clear (Clear); Bilirubin,Urine Negative (Negative); Blood,Urine Negative (Negative); Color,Urine Dark Yellow (Yellow); Ketones,Urine Negative (Negative); Nitrite,Urine Positive (Negative); PH, Urine 6.5; Specific Gravity,Urine 1.009 (1.001-1.030)
[2024-07-30 20:33] LABS: Bacteria,Urine 2+ (None Seen)
== END | disposition home or self-care (01) ==
LOC: RADXRMAIN 11:19
PROVIDERS: ATTEND Family Medicine
CPT/HCPCS: 71046; 80053; 81001; 83036; 83735; 84443; 85025; 85610; 87077; 87086; 87186; 87496; 87498; 87502; 87529; 87634; 87635; 87798